=== PATIENT | female | born 1935 | race Caucasian/White ===

== ENCOUNTER 2017-07-25 15:19 | Inpatient (IN) | payer MEDICARE, MEDICAID ==
[~2017-07-25] VITALS: Ht 160 cm; Wt 53.5 kg
[~2017-07-25 15:19] MED LIST: AMLO5TAB7 PO; ASPI-1152 PO; BACL10TA PO; DABI75CA3 PO; DOCU250C14 PO; DRON400T2 PO; DULO60CA45 PO; EZET10TA14 PO; IBAN150T PO; LINA145C PO; LORA1TAB PO; LOVA20TA2 PO; MEMA10TA PO; METO-356 PO; OLME40TA12 PO; ZOLP5TAB2 PO; [UNRECOGNIZED DRUG - CODE] SL
--- NOTE | 2017-07-25 15:25 | NUR ---
[id number] FROM HOME, PER EMS PT SENT FOR BEHAVIORAL ISSUES PER FAMILY MEMBER. PT IS AAOX3. RESP EVEN AND UNLABORED. NO S/S OF ACUTE DISTRESS NOTED. VSS. SKIN WNL. PT SAFETY AND COMFORT MEASURES IN PLACE. PT PLACED ON MONITOR AND POX. PT'S FAMILY MEMBER BEDSIDE. MD BEDSIDE FOR EVAL.
--- NOTE | 2017-07-25 15:35 | NUR ---
JOSE RUBY BEDSIDE FOR EVAL.
[2017-07-25 15:39] LABS: BASOPHILS # (AUTO) 0.1 /CMM (0.0-0.2); BASOPHILS % (AUTO) 0.8 % (0.0-2.0); HEMATOCRIT 34 % (33-45); HEMOGLOBIN 11.7 g/dL (11.5-14.8); LYMPHOCYTES # (AUTO) 1.8 /CMM (0.8-4.8); LYMPHOCYTES % (AUTO) 22.4 % (20.0-44.0); MEAN CORPUSCULAR HGB CONC 34 g/dl (31.0-36.0); MEAN CORPUSCULAR VOLUME 89 fL (82-100); MONOCYTES # (AUTO) 0.4 /CMM (0.1-1.30); MONOCYTES % (AUTO) 5.6 % (2.0-12.0); NEUTROPHILS # (AUTO) 5.5 /CMM (1.8-8.9); NEUTROPHILS % (AUTO) 70.2 % (43.0-81.0); PLATELET COUNT (AUTO) 346 /CMM (150-450); RDW COEFFICIENT OF VARIATION 13.5 (11.5-15.0); RED BLOOD CELL COUNT(AUTO) 3.87 MIL/uL (4.0-5.2); WHITE BLOOD COUNT (AUTO) 7.9 K/uL (4.3-11.0)
--- NOTE | 2017-07-25 15:46 | NUR ---
PT TO RESTROOM TO GIVE URINE SAMPLE.
--- NOTE | 2017-07-25 15:50 | NUR ---
URINE SAMPLE COLLECTED AND SENT TO LAB. PT BACK TO ER BED 3.
--- NOTE | 2017-07-25 15:50 | NUR ---
JOSE RUBY BEDSIDE WITH FAMILY AND PT FOR EVAL.
[2017-07-25 15:56] LABS: CALCIUM, SERUM 9.2 mg/dL (8.5-10.1); CARBON DIOXIDE 28 mmol/L (21-32); CHLORIDE 107 mmol/L (98-107); CREATININE 0.9 mg/dL (0.6-1.3); GLUCOSE 118 mg/dL (74-106); SODIUM SERUM 143 mmol/L (136-145); UREA NITROGEN, BLOOD 32 mg/dL (7-18)
[2017-07-25 16:02] LABS: ALANINE AMINOTRANSFERASE 31 U/L (12-78); ALBUMIN 3.5 g/dL (3.4-5.0); ALCOHOL, BLOOD < 3 mg/dL (0-0); ALKALINE PHOSPHATASE 232 U/L (46-116); ASPARTATE AMINOTRANSFERASE 26 U/L (15-37); BILIRUBIN,DIRECT 0.1 mg/dL (0.0-0.2); BILIRUBIN,TOTAL 0.3 mg/dL (0.2-1.0); TOTAL PROTEIN, SERUM 7.5 g/dL (6.4-8.2)
[2017-07-25 16:15] LABS: ACETAMINOPHEN 0 ug/ml (10-30); SALICYLATE 1.2 mg/dL (2.8-20.0)
[2017-07-25 16:37] LABS: APPEARANCE,URINE Clear (CLEAR); BILIRUBIN,URINE Negative (NEGATIVE); BLOOD, URINE Negative Ery/uL (NEGATIVE); COLOR,URINE Yellow (YELLOW); KETONES,URINE Negative (NEGATIVE); LEUKOCYTE ESTERASE ,URINE Trace (NEGATIVE); NITRITE, URINE Negative (NEGATIVE); PH,URINE 5.5 (5.0-8.0); PROTEIN,URINE >=300 mg/dl (NEGATIVE); UGLUCOSE Negative (NEGATIVE); UROBILINOGEN,URINE 0.2 EU/dL (0.2)
--- NOTE | 2017-07-25 16:45 | NUR ---
CALLED NURSE SUP FOR GPS BED
--- NOTE | 2017-07-25 16:58 | NUR ---
REPORT GIVEN TO EDUARDO GLEASON FOR EMMA
[2017-07-25 17:02] LABS: BACTERIA,URINE Few /HPF (None Seen); RBC,URINE 0-2 /HPF (0-2); SQUAMOUS EPITHELIAL CELL,UR Moderate /HPF (None Seen)
[2017-07-25] MEDS ORDERED: MEMA21CA PO (17:34)
[2017-07-25 19:00] VITALS: BP 145/95
[2017-07-25] MEDS ORDERED: ZOLPIDEM TARTRATE 5 MG TABLET PO PRN (19:00)
--- NOTE | 2017-07-25 19:10 | NUR ---
GPS RN NOTE: ADMITTED AN 82-Y/O, FEMALE, FROM ER, INITIALLY PATIENT CAME FROM HOME. PATIENT ADMITTED ON 5150 HOLD FOR GD, PER HOLD PATIENT WAS WANDERING, AGITATED, DELUSIONAL, THINKING HER SON IN LAW WANTS TO GET RID OF HER, UNABLE TO CARE FOR HERSELF. UPON FACE TO FACE ASSESSMENT, PATIENT APPEARS TO BE ALERT, ORIENTED X3, DEPRESSED, ANXIOUS SHOWS NO S/SX OF DISTRESS NOTED. BELONGINGS INVENTORIED AND CHECKED FOR CONTRABAND. REVIEWED PATIENT'S RIGHTS AND SHE VERBALIZED UNDERSTANDING. PATIENT IS UNDER THE PSYCHIATRIC CARE OF DR. HERNÁNDEZ, AND UNDER THE MEDICAL CARE OF CM MIDDLETON. SKIN AND BODY ASSESSMENT DONE. MRSA SCREENING DONE. BED LOCKED AND PLACED IN LOWEST POSITION. FALL AND SAFETY PRECAUTION OBSERVED. WILL CONTINUE TO MONITOR [id number] FOR SAFETY AND BEHAVIOR.
[2017-07-25 20:00] VITALS: BP 152/97
[2017-07-25] MEDS: MEMANTINE HCL 5 MG TABLET PO SCH (21:26)
[2017-07-25] MEDS: SIMVASTATIN 10 MG TABLET PO SCH (21:26)
[2017-07-25] MEDS: ZOLPIDEM TARTRATE 5 MG TABLET PO PRN (22:37)
--- NOTE | 2017-07-26 06:51 | NUR ---
GPS RN NOTE: LEFT VOICE MESSAGE TO JIA GRAND DAUGHTER REGARDING PATIENT'S ADMISSION. AWAITING FOR CALL BACK. CALLED JESUS GONZALEZ DAUGHTER ([phone]) UNABLE TO REACH PHONE NUMBER DISCONNECTED. WILL ENDORSE TO THE MORNING SHIFT.
[2017-07-26 08:00] VITALS: BP 185/72
[2017-07-26] MEDS: BACLOFEN (10 MG) 10 MG TABLET PO SCH (08:52)
[2017-07-26] MEDS: ASPIRIN EC 81 MG TABLET.DR PO SCH (08:52)
[2017-07-26] MEDS: EZETIMIBE 10 MG TABLET PO SCH (08:52)
[2017-07-26] MEDS: MEMANTINE HCL 5 MG TABLET PO SCH ×2 (08:53→21:14)
[2017-07-26] MEDS: VALSARTAN 80 MG TABLET PO SCH (08:53)
[2017-07-26] MEDS: SULFAMETH/TRIMETH 800/160 MG 1 UDTAB TABLET PO SCH ×2 (08:53→21:13)
[2017-07-26] MEDS: METOPROLOL SUCCINATE 25 MG TAB.SR.24H PO SCH (08:53)
[2017-07-26] MEDS: AMLODIPINE BESYLATE 5 MG TABLET PO SCH (09:00)
[2017-07-26 16:00] VITALS: BP 123/67
[2017-07-26 20:17] VITALS: BP 150/73
[2017-07-26] MEDS: SIMVASTATIN 10 MG TABLET PO SCH (21:14)
[2017-07-26] MEDS ORDERED: risperiDONE 1 MG TABLET PO SCH (22:00)
[2017-07-27 08:00] VITALS: BP 120/57
[2017-07-27] MEDS: AMLODIPINE BESYLATE 5 MG TABLET PO SCH (09:00)
[2017-07-27] MEDS: VALSARTAN 80 MG TABLET PO SCH (09:00)
[2017-07-27] MEDS: METOPROLOL SUCCINATE 25 MG TAB.SR.24H PO SCH (09:00)
[2017-07-27] MEDS: EZETIMIBE 10 MG TABLET PO SCH (09:19)
[2017-07-27] MEDS: BACLOFEN (10 MG) 10 MG TABLET PO SCH (09:19)
[2017-07-27] MEDS: ASPIRIN EC 81 MG TABLET.DR PO SCH (09:19)
[2017-07-27] MEDS: MEMANTINE HCL 5 MG TABLET PO SCH ×2 (09:20→21:10)
[2017-07-27] MEDS: SULFAMETH/TRIMETH 800/160 MG 1 UDTAB TABLET PO SCH ×2 (09:20→21:10)
[2017-07-27 10:04] VITALS: BP 102/61
[2017-07-27] MEDS: LEVOTHYROXINE SODIUM 50 MCG TABLET PO SCH ×2 (10:09→10:35)
[2017-07-27] MEDS: LORAZEPAM 0.5 MG TABLET PO PRN (13:01)
--- NOTE | 2017-07-27 13:03 | NUR ---
GPS/RN-NOTES NOTED PATIENT PACING IN THE HALLWAY LOOKING FOR A ELEVATOR. REDIRECTED AND OFFERED ATIVAN AND AGREED. ATIVAN 0.5MG P.O GIVEN PRN ORDER. WILL CONT. MONITORING FOR SAFETY AND BEHAVIOR.
--- NOTE | 2017-07-27 14:45 | NUR ---
Initial Discharge Note: Per patient, she lives at home with her daughter [id number] R Caal . [address] [place] [id number]. . food prep worker spoke to patient's son in law Milton who was unable to confirm if patient can go back home. food prep worker left her direct contact information and asked Milton to please give patient's daughter Shaylee the message. food prep worker will help form a safe and proper discharge.
--- NOTE | 2017-07-27 15:54 | NUR ---
SW spoke to patient's daughter Shaylee / . who stated that she would like patient to return home to live with her. Per daughter, another option would be to have a caregiver during the daytime and have patient go back to her own apartment. SW will follow-up.
[2017-07-27 16:07] VITALS: BP 100/55
[2017-07-27 20:00] VITALS: BP 101/55
--- NOTE | 2017-07-27 20:56 | NUR ---
RN GPS NOTES LEFT MESSAGE FOR DR. MCCLAIN IN HIS OFFICE FOR CONSULT
[2017-07-27] MEDS: risperiDONE 1 MG TABLET PO SCH (21:10)
[2017-07-27] MEDS: SIMVASTATIN 10 MG TABLET PO SCH (21:10)
[2017-07-28 08:20] VITALS: BP 152/82
[2017-07-28] MEDS: LEVOTHYROXINE SODIUM 50 MCG TABLET PO SCH (08:29)
[2017-07-28] MEDS: EZETIMIBE 10 MG TABLET PO SCH (08:37)
[2017-07-28] MEDS: BACLOFEN (10 MG) 10 MG TABLET PO SCH (08:37)
[2017-07-28] MEDS: ASPIRIN EC 81 MG TABLET.DR PO SCH (08:37)
[2017-07-28] MEDS: SULFAMETH/TRIMETH 800/160 MG 1 UDTAB TABLET PO SCH ×2 (08:37→21:51)
[2017-07-28] MEDS: MEMANTINE HCL 5 MG TABLET PO SCH ×2 (08:38→21:51)
[2017-07-28] MEDS: VALSARTAN 80 MG TABLET PO SCH (08:38)
[2017-07-28] MEDS: METOPROLOL SUCCINATE 25 MG TAB.SR.24H PO SCH (08:38)
[2017-07-28] MEDS: AMLODIPINE BESYLATE 5 MG TABLET PO SCH (08:41)
--- NOTE | 2017-07-28 09:30 | NUR ---
GPS/RN-NOTES SEEN BY DR. MCCLAIN TODAY.
[2017-07-28 11:05] LABS: THYROID STIMULATING HORMONE 3.985 uIU/mL (0.358-3.74)
[2017-07-28 16:47] VITALS: BP 140/79
[2017-07-28 16:50] VITALS: BP 140/80
[2017-07-28 20:00] VITALS: BP 138/76
[2017-07-28] MEDS: ZOLPIDEM TARTRATE 5 MG TABLET PO PRN (21:51)
[2017-07-28] MEDS: risperiDONE 1 MG TABLET PO SCH (21:51)
[2017-07-28] MEDS: SIMVASTATIN 10 MG TABLET PO SCH (21:51)
[2017-07-29 08:00] VITALS: BP 132/62
[2017-07-29] MEDS: VALSARTAN 80 MG TABLET PO SCH (09:32)
[2017-07-29] MEDS: LEVOTHYROXINE SODIUM 50 MCG TABLET PO SCH (09:32)
[2017-07-29] MEDS: METOPROLOL SUCCINATE 25 MG TAB.SR.24H PO SCH (09:33)
[2017-07-29] MEDS: MEMANTINE HCL 5 MG TABLET PO SCH ×2 (09:34→22:16)
[2017-07-29] MEDS: EZETIMIBE 10 MG TABLET PO SCH (09:34)
[2017-07-29] MEDS: SULFAMETH/TRIMETH 800/160 MG 1 UDTAB TABLET PO SCH ×2 (09:34→22:15)
[2017-07-29] MEDS: ASPIRIN EC 81 MG TABLET.DR PO SCH (09:35)
[2017-07-29] MEDS: BACLOFEN (10 MG) 10 MG TABLET PO SCH (09:35)
[2017-07-29] MEDS: AMLODIPINE BESYLATE 5 MG TABLET PO SCH (09:35)
[2017-07-29 16:00] VITALS: BP 183/70
[2017-07-29 20:00] VITALS: BP 125/69
[2017-07-29] MEDS: risperiDONE 1 MG TABLET PO SCH (22:15)
[2017-07-29] MEDS: SIMVASTATIN 10 MG TABLET PO SCH (22:15)
[2017-07-29] MEDS: ZOLPIDEM TARTRATE 5 MG TABLET PO PRN (22:16)
[2017-07-30 08:00] VITALS: BP 123/67
[2017-07-30] MEDS: EZETIMIBE 10 MG TABLET PO SCH (08:55)
[2017-07-30] MEDS: SULFAMETH/TRIMETH 800/160 MG 1 UDTAB TABLET PO SCH ×2 (08:55→21:40)
[2017-07-30] MEDS: BACLOFEN (10 MG) 10 MG TABLET PO SCH (08:55)
[2017-07-30] MEDS: LEVOTHYROXINE SODIUM 50 MCG TABLET PO SCH (08:55)
[2017-07-30] MEDS: MEMANTINE HCL 5 MG TABLET PO SCH ×2 (08:55→21:40)
[2017-07-30] MEDS: ASPIRIN EC 81 MG TABLET.DR PO SCH (08:56)
[2017-07-30] MEDS: VALSARTAN 80 MG TABLET PO SCH (08:56)
[2017-07-30] MEDS: METOPROLOL SUCCINATE 25 MG TAB.SR.24H PO SCH (08:56)
[2017-07-30] MEDS: AMLODIPINE BESYLATE 5 MG TABLET PO SCH (08:59)
[2017-07-30 16:00] VITALS: BP 156/67
[2017-07-30 20:00] VITALS: BP 102/54
[2017-07-30] MEDS: ZOLPIDEM TARTRATE 5 MG TABLET PO PRN (21:40)
[2017-07-30] MEDS: risperiDONE 1 MG TABLET PO SCH (21:40)
[2017-07-30] MEDS: SIMVASTATIN 10 MG TABLET PO SCH (21:40)
[2017-07-31] MEDS: METOPROLOL SUCCINATE 25 MG TAB.SR.24H PO SCH (08:11)
[2017-07-31] MEDS: VALSARTAN 80 MG TABLET PO SCH (08:11)
[2017-07-31] MEDS: AMLODIPINE BESYLATE 5 MG TABLET PO SCH (08:11)
[2017-07-31 08:16] VITALS: BP 189/71
[2017-07-31] MEDS: ASPIRIN EC 81 MG TABLET.DR PO SCH (08:49)
[2017-07-31] MEDS: BACLOFEN (10 MG) 10 MG TABLET PO SCH (08:49)
[2017-07-31] MEDS: MEMANTINE HCL 5 MG TABLET PO SCH ×2 (08:49→21:23)
[2017-07-31] MEDS: LEVOTHYROXINE SODIUM 50 MCG TABLET PO SCH (08:50)
[2017-07-31] MEDS: EZETIMIBE 10 MG TABLET PO SCH (08:50)
[2017-07-31] MEDS: SULFAMETH/TRIMETH 800/160 MG 1 UDTAB TABLET PO SCH ×2 (08:53→21:19)
[2017-07-31 16:00] VITALS: BP 116/60
[2017-07-31] MEDS: LORAZEPAM 0.5 MG TABLET PO PRN (19:37)
[2017-07-31 19:45] VITALS: BP 119/69
[2017-07-31] MEDS: risperiDONE 1 MG TABLET PO SCH (21:20)
[2017-07-31] MEDS: SIMVASTATIN 10 MG TABLET PO SCH (21:22)
[2017-08-01 08:00] VITALS: BP 160/75
[2017-08-01] MEDS: ASPIRIN EC 81 MG TABLET.DR PO SCH (08:32)
[2017-08-01] MEDS: LEVOTHYROXINE SODIUM 50 MCG TABLET PO SCH (08:32)
[2017-08-01] MEDS: BACLOFEN (10 MG) 10 MG TABLET PO SCH (08:32)
[2017-08-01] MEDS: SULFAMETH/TRIMETH 800/160 MG 1 UDTAB TABLET PO SCH ×2 (08:32→21:32)
[2017-08-01] MEDS: MEMANTINE HCL 5 MG TABLET PO SCH ×2 (08:33→21:32)
[2017-08-01] MEDS: AMLODIPINE BESYLATE 5 MG TABLET PO SCH (08:33)
[2017-08-01] MEDS: METOPROLOL SUCCINATE 25 MG TAB.SR.24H PO SCH (08:34)
[2017-08-01] MEDS: EZETIMIBE 10 MG TABLET PO SCH (08:34)
[2017-08-01] MEDS: VALSARTAN 80 MG TABLET PO SCH (08:34)
[2017-08-01 15:56] VITALS: BP 140/52
[2017-08-01 19:48] VITALS: BP 102/59
[2017-08-01] MEDS: risperiDONE 1 MG TABLET PO SCH (21:32)
[2017-08-01] MEDS: SIMVASTATIN 10 MG TABLET PO SCH (21:32)
[2017-08-01] MEDS: ZOLPIDEM TARTRATE 5 MG TABLET PO PRN (21:49)
[2017-08-02] MEDS: LORAZEPAM 0.5 MG TABLET PO PRN (01:19)
--- NOTE | 2017-08-02 01:19 | NUR ---
GPS RN NOTES: PATIENT IS ANXIOUS AND RESTLESS, VSS, ADMINISTERED ATIVAN 0.5MG PO ORDERED. WILL CONTINUE TO MONITOR [id number] FOR SAFETY AND BEHAVIOR.
[2017-08-02 08:00] VITALS: BP 131/60
[2017-08-02] MEDS: LEVOTHYROXINE SODIUM 50 MCG TABLET PO SCH (08:22)
[2017-08-02] MEDS: VALSARTAN 80 MG TABLET PO SCH (08:22)
[2017-08-02] MEDS: BACLOFEN (10 MG) 10 MG TABLET PO SCH (08:22)
[2017-08-02] MEDS: METOPROLOL SUCCINATE 25 MG TAB.SR.24H PO SCH (08:22)
[2017-08-02] MEDS: SULFAMETH/TRIMETH 800/160 MG 1 UDTAB TABLET PO SCH (08:22)
[2017-08-02] MEDS: MEMANTINE HCL 5 MG TABLET PO SCH (08:23)
[2017-08-02] MEDS: EZETIMIBE 10 MG TABLET PO SCH (08:24)
[2017-08-02] MEDS: ASPIRIN EC 81 MG TABLET.DR PO SCH (08:24)
[2017-08-02] MEDS: AMLODIPINE BESYLATE 5 MG TABLET PO SCH (08:24)
[2017-08-02 16:00] VITALS: BP 100/55
--- NOTE | 2017-08-02 18:00 | NUR ---
BVV-OD-DRPNP: PT IS 82 YEARS OLD FEMALE DISCHARGE TO HOME AT [address] [facility] [facility]. [id number], VIA PRIVATE CAR IN STABLE CONDITION. COMPLAINT WITH MEDICATIONS, COOPERATIVE WITH TREATMENT PLANS. PT DENIES SI/HI AND INSTRUCTED TO GO TO THE CLOSEST ER IF DEVELOPING SI/HI. BEHAVIOR IMPROVED, PSYCHIATRIC TX PLANS MET, MEDIAL TX PLANS DEFERRED FOR CONTINUAL MONITORING. EDUCATED PT ABOUT AFTER CARE PLAN AND COPY PROVIDED. RETURN PERSONAL BELONGINGS TO PT. MEDICATIONS RECONCILED WITH DR. HERNÁNDEZ AND DR. BERRY. REPORT GIVEN TO JESUS PT'S DAUGHTER. PT REFUSED TO SIGN DISCHARGE PAPERWORK. SKIN ASSESSMENT DONE. PT LEFT VIA PRIVATE CAR ACCOMPANIED BY DAUGHTER JESUS.
== END 2017-08-02 18:00 | disposition home or self-care (01) | DRG 885 ==
LOC: ER 15:20 → GPS 17:03
PROVIDERS: ADMIT Psychiatry & Neurology Psychiatry; ATTEND Psychiatry & Neurology Psychiatry
DX: F29 Unspecified psychosis not due to a substance or known physiological condition (principal); G93.41 Metabolic encephalopathy; F02.81 Dementia in other diseases classified elsewhere, unspecified severity, with behavioral disturbance; I48.91 Unspecified atrial fibrillation; E11.9 Type 2 diabetes mellitus without complications; G30.9 Alzheimer's disease, unspecified; F22 Delusional disorders; N39.0 Urinary tract infection, site not specified; I10 Essential (primary) hypertension; E03.9 Hypothyroidism, unspecified; E78.5 Hyperlipidemia, unspecified; F32.9 Major depressive disorder, single episode, unspecified; F41.9 Anxiety disorder, unspecified; I25.10 Atherosclerotic heart disease of native coronary artery without angina pectoris; K21.9 Gastro-esophageal reflux disease without esophagitis; Z91.19 Patient's noncompliance with other medical treatment and regimen; Z79.82 Long term (current) use of aspirin; K59.00 Constipation, unspecified; Z79.899 Other long term (current) drug therapy; Z79.01 Long term (current) use of anticoagulants; M19.90 Unspecified osteoarthritis, unspecified site
CPT/HCPCS: 36415; 70450-TC; 80048-TC; 80061-TC; 80076-TC; 80305; 81000-TC; 82140-TC; 82306; 82728-TC; 82962-TC; 83540-TC; 84439-TC; 84443-TC; 85025-TC; 87081-TC; 87086-TC; 87186-TC; A4606; G0480; Z7610

== ENCOUNTER 2017-10-31 09:31 | Inpatient (IN) | payer MEDICARE, MEDICAID ==
[2017-10-31] VITALS: BP 146/52
[~2017-10-31] VITALS: Ht 157.5 cm; Wt 46.7 kg
[~2017-10-31 09:31] MED LIST changes: +AMLO5TAB2 PO; -AMLO5TAB7 PO; -DABI75CA3 PO; -DOCU250C14 PO; -DRON400T2 PO; -LORA1TAB PO; -MEMA10TA PO; +MEMA21CA PO; -[UNRECOGNIZED DRUG - CODE] SL
[2017-10-31] MEDS ORDERED: IBUPROFEN 600 MG TABLET PO ONE (10:00)
[2017-10-31 10:15] LABS: CALCIUM, SERUM 10.3 mg/dL (8.5-10.1); CARBON DIOXIDE 29 mmol/L (21-32); CHLORIDE 103 mmol/L (98-107); GLUCOSE 146 mg/dL (74-106); POTASSIUM 4.3 mmol/L (3.5-5.1); SODIUM SERUM 137 mmol/L (136-145); UREA NITROGEN, BLOOD 26 mg/dL (7-18)
[2017-10-31 10:21] LABS: ALANINE AMINOTRANSFERASE 46 U/L (12-78); ALBUMIN 4.3 g/dL (3.4-5.0); ALKALINE PHOSPHATASE 85 U/L (46-116); ASPARTATE AMINOTRANSFERASE 30 U/L (15-37); BILIRUBIN,DIRECT 0.1 mg/dL (0.0-0.2); BILIRUBIN,TOTAL 0.3 mg/dL (0.2-1.0); TOTAL PROTEIN, SERUM 8.7 g/dL (6.4-8.2)
[2017-10-31 10:22] LABS: HEMATOCRIT 41 % (33-45); HEMOGLOBIN 13.7 g/dL (11.5-14.8); MEAN CORPUSCULAR HEMOGLOBIN 30 PG (26.0-33.0); MEAN CORPUSCULAR HGB CONC 33 g/dl (31.0-36.0); MEAN CORPUSCULAR VOLUME 91 fL (82-100); RED BLOOD CELL COUNT(AUTO) 4.55 MIL/uL (4.0-5.2); WHITE BLOOD COUNT (AUTO) 10.7 K/uL (4.3-11.0)
[2017-10-31 10:23] LABS: BASOPHILS % (AUTO) 1.2 % (0.0-2.0); EOSINOPHILS % (AUTO) 1.2 % (0.0-6.0); LYMPHOCYTES % (AUTO) 43.4 % (20.0-44.0); MONOCYTES % (AUTO) 8.3 % (2.0-12.0); NEUTROPHILS % (AUTO) 45.9 % (43.0-81.0); PLATELET COUNT (AUTO) 315 /CMM (150-450); RDW COEFFICIENT OF VARIATION 14.8 (11.5-15.0); TROPONIN I 0.064 ng/mL (0.00-0.056)
[2017-10-31] MEDS ORDERED: ASPIRIN 325 MG TABLET PO ONE (11:00)
[2017-10-31 11:02] LABS: APPEARANCE,URINE CLEAR (CLEAR); BILIRUBIN,URINE NEGATIVE (NEGATIVE); BLOOD, URINE 1+ Ery/uL (NEGATIVE); COLOR,URINE YELLOW (YELLOW); KETONES,URINE NEGATIVE (NEGATIVE); LEUKOCYTE ESTERASE ,URINE NEGATIVE (NEGATIVE); NITRITE, URINE NEGATIVE (NEGATIVE); PROTEIN,URINE 3+ mg/dl (NEGATIVE); UGLUCOSE NEGATIVE (NEGATIVE); UROBILINOGEN,URINE 0.2 EU/dL (0.2)
[2017-10-31] MEDS ORDERED: ASPIRIN 325 MG TABLET ONE (11:32)
[2017-10-31 11:45] LABS: BACTERIA,URINE None seen /HPF (None Seen); SQUAMOUS EPITHELIAL CELL,UR None Seen /HPF (None Seen); WBC,URINE NONE SEEN /HPF (0-3)
[2017-10-31] MEDS ORDERED: MAG HYDROX/AL HYDROX/SIMETH 30 ML UDC PO PRN (12:00)
[2017-10-31] MEDS ORDERED: ONDANSETRON HCL/PF 4 MG/2 ML VIAL IVP PRN (12:00)
[2017-10-31] MEDS ORDERED: MORPHINE SULFATE INJ 2 MG/ML DISP.SYRIN IV PRN (12:00)
[2017-10-31] MEDS ORDERED: ACETAMINOPHEN 325 MG TABLET PO PRN (12:00)
[2017-10-31] MEDS ORDERED: ZOLPIDEM TARTRATE 5 MG TABLET PO PRN ×2 (12:00)
[2017-10-31] MEDS ORDERED: MAGNESIUM HYDROXIDE 30 ML UDC PO PRN (12:00)
[2017-10-31 13:43] LABS: ABG BASE EXCESS 1.1 mmol/L; ABG OXYGEN SATURATION 98.4 % (92.0-98.5); ABG PH 7.438 (7.350-7.450); ABG PO2 144.3 mmHg (75.0-100.0); AaDO2 10.5 mmHg; COHb 0.4 % (0.5-1.5); MetHb 0.2 % (0.0-1.5); O2Hb 97.8 % (94.0-97.0); SITE, ABG Right Radial; VENT MODE, BG Nasal Cannula
[2017-10-31] MEDS: IV NS 0.9% 1,000 ML IV PRN (14:17)
[2017-10-31 14:53] VITALS: BP 187/87
[2017-10-31] MEDS: hydrALAZINE HCL IV 20 MG VIAL IV PRN ×2 (14:53→23:30)
[2017-10-31 15:30] VITALS: BP 134/75
[2017-10-31] MEDS ORDERED: NYSTATIN TOP POWDER 15 GM BOTTLE TP SCH (15:30)
[2017-10-31 16:23] VITALS: BP 134/75
[2017-10-31] MEDS: MEMANTINE HCL 5 MG TABLET PO SCH (18:10)
[2017-10-31 20:00] VITALS: BP 165/89
[2017-11-01] VITALS: BP 146/52
[2017-11-01] MEDS: ENOXAPARIN SODIUM 60 MG/0.6 ML DISP.SYRIN SQ SCH ×3 (00:16→21:44)
[2017-11-01 04:00] VITALS: BP 145/74
[2017-11-01] MEDS: IV NS 0.9% 1,000 ML IV PRN (04:17)
[2017-11-01 06:41] LABS: CHOLESTEROL 268 mg/dL (<200); HDL CHOLESTEROL 114 mg/dL (40-60); LDL 134 mg/dL (0-99); TRIGLYCERIDES 56 mg/dL (30-150)
[2017-11-01 06:55] LABS: CALCIUM, SERUM 9.5 mg/dL (8.5-10.1); CARBON DIOXIDE 25 mmol/L (21-32); CHLORIDE 105 mmol/L (98-107); GLUCOSE 115 mg/dL (74-106); PHOSPHORUS 2.7 mg/dL (2.5-4.9); POTASSIUM 3.9 mmol/L (3.5-5.1); SODIUM SERUM 142 mmol/L (136-145); UREA NITROGEN, BLOOD 23 mg/dL (7-18)
[2017-11-01] MEDS ORDERED: PANTOPRAZOLE 40 MG TABLET.DR PO SCH (07:30)
[2017-11-01 07:42] LABS: EOSINOPHILS % (AUTO) 0.6 % (0.0-6.0); HEMATOCRIT 37 % (33-45); HEMOGLOBIN 13.5 g/dL (11.5-14.8); LYMPHOCYTES # (AUTO) 1.7 /CMM (0.8-4.8); LYMPHOCYTES % (AUTO) 13.3 % (20.0-44.0); MEAN CORPUSCULAR HEMOGLOBIN 33 PG (26.0-33.0); MEAN CORPUSCULAR HGB CONC 37 g/dl (31.0-36.0); MEAN CORPUSCULAR VOLUME 89 fL (82-100); MONOCYTES # (AUTO) 0.9 /CMM (0.1-1.30); NEUTROPHILS % (AUTO) 79.1 % (43.0-81.0); PLATELET COUNT (AUTO) 270 /CMM (150-450); RDW COEFFICIENT OF VARIATION 14.2 (11.5-15.0); RED BLOOD CELL COUNT(AUTO) 4.14 MIL/uL (4.0-5.2); WHITE BLOOD COUNT (AUTO) 12.7 K/uL (4.3-11.0)
[2017-11-01 08:00] VITALS: BP 147/76
[2017-11-01] MEDS ORDERED: PHARMACY TO CHANGE PO MEDS TO GT/NG XX PRN (08:00)
[2017-11-01] MEDS ORDERED: METOPROLOL SUCCINATE 25 MG TAB.SR.24H PO SCH (09:00)
[2017-11-01] MEDS: METOPROLOL TARTRATE 25 MG TABLET PO SCH ×2 (09:53→21:44)
[2017-11-01] MEDS: DULOXETINE HCL 20 MG CAPSULE.DR PO SCH (09:56)
[2017-11-01] MEDS: AMLODIPINE BESYLATE 5 MG TABLET PO SCH (09:57)
[2017-11-01] MEDS: BACLOFEN (10 MG) 10 MG TABLET PO SCH (09:58)
[2017-11-01] MEDS: EZETIMIBE 10 MG TABLET PO SCH (09:58)
[2017-11-01] MEDS: MEMANTINE HCL 5 MG TABLET PO SCH ×2 (09:58→17:00)
[2017-11-01] MEDS: ASPIRIN 81 MG TAB.CHEW PO SCH (09:59)
[2017-11-01] MEDS: ATORVASTATIN 10 MG TABLET PO SCH (09:59)
[2017-11-01] MEDS: PANTOPRAZOLE 40 MG/PACK PACK PO SCH (10:00)
[2017-11-01 10:02] LABS: THYROID STIMULATING HORMONE 5.323 uIU/mL (0.358-3.74)
[2017-11-01 10:03] LABS: TROPONIN I 6.013 ng/mL (0.00-0.056)
[2017-11-01] MEDS: VALSARTAN 80 MG TABLET PO SCH (11:11)
[2017-11-01 11:40] LABS: LYMPHOCYTES % (MANUAL) 19 % (16-48); NEUTROPHILS % (MANUAL) 75 (42-76)
[2017-11-01 11:41] LABS: MONOCYTES % (MANUAL) 6 % (0-11.0)
[2017-11-01 12:00] VITALS: BP 162/78
[2017-11-01] MEDS: hydrALAZINE HCL IV 20 MG VIAL IV PRN (13:01)
[2017-11-01] MEDS: HYDROCODONE/APAP 5/325MG 1 EACH TABLET PO PRN ×2 (14:20→19:32)
[2017-11-01] MEDS ORDERED: LORAZEPAM INJ 2 MG/ML VIAL IV PRN (15:30)
[2017-11-01 16:00] VITALS: BP 136/58
[2017-11-01 20:00] VITALS: BP 156/72
[2017-11-02] VITALS: BP 141/70
[2017-11-02 04:06] VITALS: BP 135/66
[2017-11-02 06:15] LABS: BASOPHILS % (AUTO) 0.5 % (0.0-2.0); EOSINOPHILS % (AUTO) 0.6 % (0.0-6.0); HEMATOCRIT 38 % (33-45); LYMPHOCYTES # (AUTO) 1.8 /CMM (0.8-4.8); LYMPHOCYTES % (AUTO) 18.8 % (20.0-44.0); MEAN CORPUSCULAR HEMOGLOBIN 30 PG (26.0-33.0); MEAN CORPUSCULAR HGB CONC 34 g/dl (31.0-36.0); MEAN CORPUSCULAR VOLUME 89 fL (82-100); MONOCYTES # (AUTO) 0.9 /CMM (0.1-1.30); MONOCYTES % (AUTO) 9.2 % (2.0-12.0); NEUTROPHILS # (AUTO) 6.7 /CMM (1.8-8.9); NEUTROPHILS % (AUTO) 70.9 % (43.0-81.0); PLATELET COUNT (AUTO) 264 /CMM (150-450); RDW COEFFICIENT OF VARIATION 14.3 (11.5-15.0); RED BLOOD CELL COUNT(AUTO) 4.28 MIL/uL (4.0-5.2); WHITE BLOOD COUNT (AUTO) 9.5 K/uL (4.3-11.0)
[2017-11-02 06:57] LABS: CALCIUM, SERUM 8.8 mg/dL (8.5-10.1); CARBON DIOXIDE 28 mmol/L (21-32); CHLORIDE 107 mmol/L (98-107); GLUCOSE 105 mg/dL (74-106); SODIUM SERUM 144 mmol/L (136-145); UREA NITROGEN, BLOOD 27 mg/dL (7-18)
[2017-11-02 08:00] VITALS: BP 166/65
[2017-11-02] MEDS: EZETIMIBE 10 MG TABLET PO SCH (08:15)
[2017-11-02] MEDS: PANTOPRAZOLE 40 MG/PACK PACK PO SCH (08:15)
[2017-11-02] MEDS: METOPROLOL TARTRATE 25 MG TABLET PO SCH ×2 (08:17→20:54)
[2017-11-02] MEDS: BACLOFEN (10 MG) 10 MG TABLET PO SCH (08:17)
[2017-11-02] MEDS: AMLODIPINE BESYLATE 5 MG TABLET PO SCH (08:17)
[2017-11-02] MEDS: ATORVASTATIN 10 MG TABLET PO SCH (08:18)
[2017-11-02] MEDS: MEMANTINE HCL 5 MG TABLET PO SCH ×2 (08:18→16:57)
[2017-11-02] MEDS: VALSARTAN 80 MG TABLET PO SCH (08:18)
[2017-11-02] MEDS: ASPIRIN 81 MG TAB.CHEW PO SCH (08:18)
[2017-11-02] MEDS: DULOXETINE HCL 20 MG CAPSULE.DR PO SCH (08:19)
[2017-11-02 08:44] LABS: IRON, SERUM 51 ug/dl (50-175); TOTAL IRON BINDING CAPACITY 282 ug/dl (250-450)
[2017-11-02 09:03] LABS: FERRITIN 117 ng/mL (8-388)
[2017-11-02] MEDS: DABIGATRAN ETEXILATE MESYLATE 75 MG CAPSULE PO SCH ×2 (10:24→17:04)
[2017-11-02] MEDS: IV NS 0.9% 1,000 ML IV PRN (13:06)
[2017-11-02 16:00] VITALS: BP 92/54
[2017-11-02 20:00] VITALS: BP_SYST 92; BP_SYST 94; BP_DIAS 48; BP_DIAS 58
[2017-11-03] MEDS: IV NS 0.9% 1,000 ML IV PRN (02:45)
[2017-11-03 06:41] LABS: BASOPHILS % (AUTO) 0.4 % (0.0-2.0); EOSINOPHILS % (AUTO) 1.9 % (0.0-6.0); HEMATOCRIT 36 % (33-45); HEMOGLOBIN 11.6 g/dL (11.5-14.8); LYMPHOCYTES # (AUTO) 2.6 /CMM (0.8-4.8); LYMPHOCYTES % (AUTO) 30.4 % (20.0-44.0); MEAN CORPUSCULAR HEMOGLOBIN 30 PG (26.0-33.0); MEAN CORPUSCULAR HGB CONC 33 g/dl (31.0-36.0); MEAN CORPUSCULAR VOLUME 93 fL (82-100); MONOCYTES # (AUTO) 0.8 /CMM (0.1-1.30); MONOCYTES % (AUTO) 9.2 % (2.0-12.0); NEUTROPHILS % (AUTO) 58.1 % (43.0-81.0); PLATELET COUNT (AUTO) 218 /CMM (150-450); RDW COEFFICIENT OF VARIATION 15.2 (11.5-15.0); RED BLOOD CELL COUNT(AUTO) 3.85 MIL/uL (4.0-5.2); WHITE BLOOD COUNT (AUTO) 8.6 K/uL (4.3-11.0)
[2017-11-03 06:43] LABS: ALANINE AMINOTRANSFERASE 42 U/L (12-78); ALBUMIN 2.7 g/dL (3.4-5.0); ALKALINE PHOSPHATASE 52 U/L (46-116); ASPARTATE AMINOTRANSFERASE 59 U/L (15-37); BILIRUBIN,TOTAL 0.3 mg/dL (0.2-1.0); CALCIUM, SERUM 8.1 mg/dL (8.5-10.1); CARBON DIOXIDE 26 mmol/L (21-32); CHLORIDE 107 mmol/L (98-107); CREATININE 0.9 mg/dL (0.6-1.3); GLUCOSE 93 mg/dL (74-106); MAGNESIUM 1.9 mg/dL (1.8-2.4); PHOSPHORUS 2.9 mg/dL (2.5-4.9); POTASSIUM 3.6 mmol/L (3.5-5.1); SODIUM SERUM 139 mmol/L (136-145); TOTAL PROTEIN, SERUM 6.1 g/dL (6.4-8.2); UREA NITROGEN, BLOOD 31 mg/dL (7-18)
[2017-11-03 08:00] VITALS: BP 121/62
[2017-11-03] MEDS: PANTOPRAZOLE 40 MG/PACK PACK PO SCH (08:04)
[2017-11-03] MEDS: EZETIMIBE 10 MG TABLET PO SCH (08:30)
[2017-11-03] MEDS: MEMANTINE HCL 5 MG TABLET PO SCH (08:30)
[2017-11-03] MEDS: ATORVASTATIN 10 MG TABLET PO SCH (08:30)
[2017-11-03] MEDS: BACLOFEN (10 MG) 10 MG TABLET PO SCH (08:30)
[2017-11-03] MEDS: ASPIRIN 81 MG TAB.CHEW PO SCH (08:31)
[2017-11-03] MEDS: DULOXETINE HCL 20 MG CAPSULE.DR PO SCH (08:31)
[2017-11-03] MEDS: DABIGATRAN ETEXILATE MESYLATE 75 MG CAPSULE PO SCH (08:32)
[2017-11-03] MEDS: VALSARTAN 80 MG TABLET PO SCH (09:00)
[2017-11-03] MEDS: METOPROLOL TARTRATE 25 MG TABLET PO SCH (09:00)
[2017-11-03] MEDS: AMLODIPINE BESYLATE 5 MG TABLET PO SCH (09:00)
[2017-11-03] MEDS ORDERED: IV NS 0.9% 1,000 ML IV PRN (10:44)
[2017-11-03] MEDS ORDERED: ERGOCALCIFEROL (VITAMIN D 2) 50,000 UNIT CAPSULE PO SCH (11:00)
[2017-11-03] MEDS: POTASSIUM CHLORIDE 20 MEQ TAB.PRT.SR PO SCH ×3 (11:43→15:19)
[2017-11-03 16:20] VITALS: BP 114/67
== END 2017-11-03 16:30 | DRG 280 ==
LOC: ER 09:32 → TELE 11:24 → MED 11-02 09:21
PROVIDERS: ADMIT Nurse Practitioner Acute Care; ATTEND Nurse Practitioner Acute Care
DX: I16.0 Hypertensive urgency (principal); G93.40 Encephalopathy, unspecified; I21.A1 Myocardial infarction type 2; I50.23 Acute on chronic systolic (congestive) heart failure; D68.59 Other primary thrombophilia; N17.9 Acute kidney failure, unspecified; I11.0 Hypertensive heart disease with heart failure; E03.9 Hypothyroidism, unspecified; E11.9 Type 2 diabetes mellitus without complications; E78.5 Hyperlipidemia, unspecified; F41.9 Anxiety disorder, unspecified; I25.10 Atherosclerotic heart disease of native coronary artery without angina pectoris; I34.0 Nonrheumatic mitral (valve) insufficiency; I48.91 Unspecified atrial fibrillation; K21.9 Gastro-esophageal reflux disease without esophagitis; M19.90 Unspecified osteoarthritis, unspecified site; G30.9 Alzheimer's disease, unspecified; F02.80 Dementia in other diseases classified elsewhere, unspecified severity, without behavioral disturbance, psychotic disturbance, mood disturbance, and anxiety; D50.9 Iron deficiency anemia, unspecified; R33.9 Retention of urine, unspecified; Z79.01 Long term (current) use of anticoagulants
CPT/HCPCS: 36415; 36600; 70450-TC; 71045-TC; 80048-TC; 80053-TC; 80061-TC; 80076-TC; 81000-TC; 82306; 82728-TC; 82803-TC; 83540-TC; 83735-TC; 84100-TC; 84439-TC; 84443-TC; 84484-TC; 85025-TC; 87081-TC; 87086-TC; 93307-TC; 97116-TC; 97530-TC; A4606; J0360; J1650; J7030; Z7610

== ENCOUNTER 2019-07-30 21:24 | Inpatient (IN) | payer MEDICARE, OTHER ==
[~2019-07-30] VITALS: Ht 157.5 cm; Wt 58.2 kg
[~2019-07-30 21:24] MED LIST changes: -AMLO5TAB2 PO; +AMLO5TAB9 PO; -EZET10TA14 PO; +EZET10TA16 PO; -IBAN150T PO; +IBAN150T16 PO; -METO-356 PO; +METO25TA4 PO
--- NOTE | 2019-07-30 21:35 | NUR ---
BIBRA 889 FOR C/O ABD DISTENTION AND CONSTIPATION. LBM: 07/27. PER DTR PT HAS RECEIVED LAXATIVE AT HOME FOR THE PAST TWO DAYS BUT NOT EFFECTIVE.
--- NOTE | 2019-07-30 22:02 | NUR ---
IV LINE STABLISHE. BLOOD DRAWN AND SENT TO THE LAB
[2019-07-30 22:04] LABS: BASOPHILS % (AUTO) 0.4 % (0.0-2.0); HEMATOCRIT 38 % (33-45); HEMOGLOBIN 12.5 g/dL (11.5-14.8); LYMPHOCYTES # (AUTO) 0.7 /CMM (0.8-4.8); LYMPHOCYTES % (AUTO) 6.5 % (20.0-44.0); MEAN CORPUSCULAR HGB CONC 33 g/dl (31.0-36.0); MEAN CORPUSCULAR VOLUME 91 fL (82-100); MONOCYTES # (AUTO) 0.4 /CMM (0.1-1.30); MONOCYTES % (AUTO) 3.2 % (2.0-12.0); NEUTROPHILS # (AUTO) 10.3 /CMM (1.8-8.9); NEUTROPHILS % (AUTO) 89.9 % (43.0-81.0); PLATELET COUNT (AUTO) 325 /CMM (150-450); RED BLOOD CELL COUNT(AUTO) 4.17 MIL/uL (4.0-5.2); WHITE BLOOD COUNT (AUTO) 11.5 K/uL (4.3-11.0)
[2019-07-30 22:15] LABS: CALCIUM, SERUM 9.4 mg/dL (8.5-10.1); CREATININE 1.2 mg/dL (0.6-1.3); POTASSIUM 4.3 mmol/L (3.5-5.1)
[2019-07-30 22:22] LABS: ALBUMIN 3.8 g/dL (3.4-5.0); BILIRUBIN,DIRECT 0.1 mg/dL (0.0-0.2); BILIRUBIN,TOTAL 0.4 mg/dL (0.2-1.0); TOTAL PROTEIN, SERUM 8.3 g/dL (6.4-8.2)
[2019-07-30] MEDS ORDERED: IOHEXOL-300 100 ML VIAL IV ONE (22:35)
[2019-07-30] MEDS ORDERED: IV NS 0.9% 250 ML IV ONE (22:35)
[2019-07-30 22:56] LABS: APPEARANCE,URINE Clear (CLEAR); BILIRUBIN,URINE SMALL (NEGATIVE); BLOOD, URINE Moderate Ery/uL (NEGATIVE); COLOR,URINE Yellow (YELLOW); KETONES,URINE Negative (NEGATIVE); LEUKOCYTE ESTERASE ,URINE Negative (NEGATIVE); NITRITE, URINE Positive (NEGATIVE); PH,URINE 5.5 (5.0-8.0); PROTEIN,URINE >=300 mg/dl (NEGATIVE); UGLUCOSE Negative (NEGATIVE); UROBILINOGEN,URINE 0.2 EU/dL (0.2)
[2019-07-30 23:07] LABS: RBC,URINE 21-50 /HPF (0-2)
[2019-07-30 23:08] LABS: BACTERIA,URINE 2+ /HPF (None Seen); SQUAMOUS EPITHELIAL CELL,UR Few /HPF (None Seen)
--- NOTE | 2019-07-30 23:24 | NUR ---
dr. qiu at the bed side speaking w/ the pt and her daughter
--- NOTE | 2019-07-30 23:32 | NUR ---
DR. AL ON THE PHONE W/ CORINNA CRAWFORD
--- NOTE | 2019-07-30 23:33 | NUR ---
US TECH AT THE BED SIDE
--- NOTE | 2019-07-30 23:34 | NUR ---
DR AL ON THE PHONE W/ DR. ROME
--- NOTE | 2019-07-30 23:38 | NUR ---
CALLED SUP FOR TELE BED
[2019-07-31] VITALS (7 sets, daily range): BP systolic 130–162; BP diastolic 51–76
[2019-07-31] MEDS ORDERED: CLOP75TA15 PO (00:01)
[2019-07-31] MEDS ORDERED: DONE5TAB7 PO (00:02)
--- NOTE | 2019-07-31 00:03 | NUR ---
manohar gustafson: [phone] son- in -law, [facility]: [phone]
[2019-07-31] MEDS ORDERED: IV PREMIX D5 1/2NS + KCL 1,000 ML IV ONE ×2 (00:07→00:14)
--- NOTE | 2019-07-31 00:10 | NUR ---
report viral to Michaela on third floor
[2019-07-31] MEDS ORDERED: MAGNESIUM HYDROXIDE 30 ML UDC PO PRN (00:30)
[2019-07-31] MEDS ORDERED: Z GUARD REMEDY 2 OZ OINT TP PRN (00:30)
[2019-07-31] MEDS ORDERED: ONDANSETRON HCL/PF 4 MG/2 ML VIAL IVP PRN (00:30)
[2019-07-31] MEDS ORDERED: MAG HYDROX/AL HYDROX/SIMETH 30 ML UDC PO PRN (00:30)
[2019-07-31] MEDS ORDERED: ONDANSETRON HCL/PF 4 MG/2 ML VIAL ONE (00:45)
[2019-07-31] MEDS ORDERED: MORPHINE SULFATE INJ 4 MG/ML DISP.SYRIN ONE (00:46)
--- NOTE | 2019-07-31 00:50 | NUR ---
RECEIVED NEW ORDER FROM DR. AL FOR MORPHINE 4 MG IV ONCE AND ZOFRAN 4MG IV ONCE NOW DUE TO PT'S COMPLAIN OF ABD PAIN. NEW ORDERS NOTED AND ACARRIED OUT.
--- NOTE | 2019-07-31 01:09 | NUR ---
pt was transferred to 311 under ACLS
[2019-07-31] MEDS ORDERED: CEFTRIAXONE 1 G VIAL ONE (01:14)
[2019-07-31] MEDS: CEFTRIAXONE 1 G in IV D5W 50 ML IV SCH (01:26)
--- NOTE | 2019-07-31 01:30 | NUR ---
TELE ADMITTING NOTES PATIENT RECEIVED FROM ER VIA [facility] ACCOMPANIED BY ER STAFF. ABLE TO AMBULATE FROM GURNEY TO BED BUT WITH ASSISTANCE. PATIENT IS A/O X 3, BENINESE/ UKRANIAN SPEAKING MOSTLY. TELE MONITORS PLACED ON PATIENT. STABLE ON RA WITH BREATHING EVEN AND UNLABORED, NO SOB NOTED. NO SIGS OF ACUTE DISTRESS. NO COMPLAINTS OF PAIN AT THE MOMENT, JUST SMALL COMPLAINT OF ABDOMINAL PAIN. IV LOCATED ON R AC #18 PATENT AND INTACT. PATIENT ORIENTED TO ROOM AND STAFF. BELONGINGS ACCOUNTED FOR. SAFETY PRECAUTIONS IN PLACE WITH BED IN LOWEST POSITION, CALL LIGHT WITHIN REACH, BREAKS ON, SIDE RAILS UP. WILL CONTINUE TO MONITOR THROUUGHT THE SHIFT.
[2019-07-31] MEDS ORDERED: ONDANSETRON HCL/PF 4 MG/2 ML VIAL IV ONE (02:00)
[2019-07-31] MEDS ORDERED: MORPHINE SULFATE INJ 4 MG/ML DISP.SYRIN IV ONE (02:00)
--- NOTE | 2019-07-31 02:00 | NUR ---
APPLICATIONS SUPPORT ANALYST NOTES FOUNTAIN SERVER MESHA CADENA PERFORMED DIGITAL IMPACTION REMOVAL, BUT UNSUCCESSFUL- UNABLE TO RELEASE BM.
[2019-07-31 03:15] LABS: BASOPHILS % (AUTO) 0.3 % (0.0-2.0); HEMATOCRIT 38 % (33-45); HEMOGLOBIN 12.4 g/dL (11.5-14.8); LYMPHOCYTES # (AUTO) 0.9 /CMM (0.8-4.8); LYMPHOCYTES % (AUTO) 6.4 % (20.0-44.0); MEAN CORPUSCULAR HGB CONC 33 g/dl (31.0-36.0); MEAN CORPUSCULAR VOLUME 91 fL (82-100); MONOCYTES # (AUTO) 0.7 /CMM (0.1-1.30); MONOCYTES % (AUTO) 5.5 % (2.0-12.0); NEUTROPHILS # (AUTO) 11.6 /CMM (1.8-8.9); NEUTROPHILS % (AUTO) 87.8 % (43.0-81.0); PLATELET COUNT (AUTO) 339 /CMM (150-450); RED BLOOD CELL COUNT(AUTO) 4.19 MIL/uL (4.0-5.2); WHITE BLOOD COUNT (AUTO) 13.2 K/uL (4.3-11.0)
[2019-07-31 03:26] LABS: CALCIUM, SERUM 8.7 mg/dL (8.5-10.1); CREATININE 1.2 mg/dL (0.6-1.3); MAGNESIUM 2.5 mg/dL (1.8-2.4); PHOSPHORUS 3.5 mg/dL (2.5-4.9); POTASSIUM 4.6 mmol/L (3.5-5.1)
[2019-07-31 03:37] LABS: THYROID STIMULATING HORMONE 8.323 uIU/mL (0.358-3.74)
--- NOTE | 2019-07-31 06:30 | NUR ---
NURSING EXECUTIVE NOTES PATIENT IV PULLED OUT BY ACCIDENT. REPLACED NEW IV ON L AC #20.
--- NOTE | 2019-07-31 06:57 | NUR ---
MS RN CLOSING NOTES PATIENT CURRENTLY RESTING IN BED A/O X 2-3 NIGERIEN/ UKRANIAN SPEAKING. STABLE ON RA WITH BREATHING EVEN AND UNLABORED, NO SOB NOTED. NO SIGNS OF ACUTE DISTRESS. NO COMPLAINTS OF PAIN, SLIGHT DISCOMFORT OF THE ABDOMEN. TELE MONITOR READING SR. PATIENT HAS BEEN NPO SINCE ADMISSION 0100. IV ON L AC #18 RUNNING D51/2 NS + KCL @ 150 ML/ HR. SAFETY PRECAUTIONS IN PLACE WITH BED IN LOWEST POSITION, CALL LIGHT WITHIN REACH, BREAKS ON, SIDE RAILS UP, BED ALARM ON. WILL ENDORSE TO ONCOMING SHIFT ABOUT EMMA.
--- NOTE | 2019-07-31 07:41 | NUR ---
JACQUARD LACE WEAVER OPENING NOTES RECEIVED PATIENT IN BED, AWAKE, A/O X3. PATIENT BREATHING ON ROOM AIR; BREATHING EVEN AND UNLABORED. PER PATIENT NO PAIN AT THIS TIME. LAC GAUGE # 18 INTACT AND INFUSING D5 1/2 NS W KCL @ 150 ML/HR. PATIENT REMAINS NPO AND IS READY FOR PROCEDURE. SAFETY PRECAUTIONS IN PLACE; BED IN LOW POSITION AND LOCKED, RAILS UP X2, CALL LIGHT WITHIN REACH. WILL CONTINUE TO MONITOR PATIENT.
[2019-07-31] MEDS ORDERED: NA PHOS,M-B/NA PHOS,DI-BA 1 EA ENEMA RC ONE (08:00)
[2019-07-31] MEDS ORDERED: AMLODIPINE BESYLATE 5 MG TABLET PO SCH (09:00)
[2019-07-31] MEDS ORDERED: DULOXETINE HCL 30 MG CAPSULE.DR PO SCH (09:00)
[2019-07-31] MEDS ORDERED: METOPROLOL SUCCINATE 25 MG TAB.SR.24H PO SCH (09:00)
[2019-07-31] MEDS ORDERED: LOSARTAN POTASSIUM 50 MG TABLET PO SCH (09:00)
[2019-07-31] MEDS ORDERED: ANESTHESIA TRAY IN PYXIS 1 EA TRAY MC ONE ×2 (09:32→19:07)
[2019-07-31] MEDS: IV NS 0.9% 1,000 ML IV PRN ×2 (12:06→22:39)
[2019-07-31] MEDS ORDERED: MORPHINE SULFATE INJ 2 MG/ML DISP.SYRIN IV PRN (14:05)
--- NOTE | 2019-07-31 14:40 | NUR ---
ACCESS LEAD NOTES PATIENT DEVELOPED ABDOMINAL PAIN. WAS GRIMACING AND MOANING. PER MD ORDER ADMINISTERED PRN MORPHINE. WILL REASSESS.
--- NOTE | 2019-07-31 17:30 | NUR ---
MS RN NOTES PATIENT SEEN BY DR TAYLOR FOR SURGICAL CONSULT. DR ADVISED SURGERY AND SPOKE TO THE FAMILY. ALL CONSENTS SIGNED. PATIENT CONTINUE TO STAY NPO EXCEPT MEDS. WILL ENDORSE TO HEALTH SERVICES COORDINATOR NURSE.
--- NOTE | 2019-07-31 18:51 | NUR ---
INTERNET SALES REPRESENTATIVE CLOSING NOTES PATIENT IN BED, IN AND OUT OF SLEEP, A/O X2. PATIENT BREATHING ON ROOM AIR; BREATHING EVEN AND UNLABORED. PATIENT HAD ABDOMINAL PAIN THROUGHOUT THE DAY. PRN MEDICATION WAS ADMINISTERED TO RELIEVE THE PAIN. LAC GAUGE # 18 INTACT AND INFUSING NS AT 125 MLS/HR. PATIENT REMAINS NPO AND IS READY FOR SURGERY. ALL CONSENTS SIGNED AND FILED. FAMILY AWARE. SAFETY PRECAUTIONS IN PLACE; BED IN LOW POSITION AND LOCKED, RAILS UP X2, CALL LIGHT WITHIN REACH. WILL ENDORSE TO CUT OFF SAWYER NURSE.
--- NOTE | 2019-07-31 19:20 | NUR ---
COLLECTOR OF PORT NOTES PATIENT IN BED, ASLEEP, ALERT AND ORIENTED X 2. SENEGALESE SPEAKING. BREATHING EVEN AND UNLABORED ON 2 L NC. SHOWS NO SIGNS OF ACUTE RESPIRATORY DISTRESS, NO ACUTE PAIN. TELE MONITOR SR. IV ON LAC 18G RUNNING NS AT 125ML/HR. ITS CLEAN DRY AND INTACT. SHOWS NO SIGNS OF INFILTRATION, NO REDNESS. SAFETY PRECAUTIONS ON PLACE. BED IN LOWEST POSITION, LOCKED, AND CALL LIGHT KEPT WITHIN REACH. WILL CONTINUE TO MONITOR.
--- NOTE | 2019-07-31 19:25 | NUR ---
FEED INSPECTION SUPERVISOR NOTES PT TAKEN TO SURGERY. WILL CONTINUE TO MONITOR.
[2019-07-31] MEDS ORDERED: MIDAZOLAM HCL 2 MG/2ML VIAL ONE (19:34)
[2019-07-31] MEDS ORDERED: FENTANYL PF 250MCG/5ML AMPUL ONE (19:35)
[2019-07-31] MEDS ORDERED: FENTANYL PF 100MCG/2ML AMPUL ONE (19:35)
[2019-07-31] MEDS ORDERED: FAMOTIDINE/PF INJ 20 MG/2 ML VIAL IV ONE (19:36)
[2019-07-31] MEDS ORDERED: ROCURONIUM BROMIDE 50 MG/5 ML ONE (19:37)
[2019-07-31] MEDS ORDERED: LIDOCAINE HCL/MPF 1% 30 ML VIAL IJ ONE (20:54)
[2019-07-31] MEDS ORDERED: BUPIVACAINE MPF 0.5% W/EPI INJ 30 ML VIAL ONE (20:55)
[2019-07-31] MEDS ORDERED: BACITRACIN ZINC OINT (15 GM) 15 GM TUBE TP ONE (21:26)
[2019-07-31] MEDS ORDERED: PROPOFOL 100 ML ONE (21:37)
[2019-07-31] MEDS ORDERED: DONEPEZIL 5 MG TABLET PO SCH (22:00)
--- NOTE | 2019-07-31 22:15 | NUR ---
ICU/RN OPENING RECEIVED PATIENT FROM OR NURSES SEDATED AND INUTBATED WITH NO SIGN OF ANY DISTRESS. PATIENT IS TOLERATING VENT SETTINGS ORDERED. PN THE MONITOR SR WITH HR 68 ON BEDSIDE MONITOR. NO SIGN OF SOB, RESPIRATIONS EVEN AND UNLABORED., SP02 AT 100% VIA MECHANICAL VENT/ ETT 11/[address] FC DRAINING VIA GRAVITY WITH YELLOW OUTPUT. LAC #20 PATENT AND FLUSHING. DIPRIVAN AT 5MCG/KG/MIN AND LR AT 125CC/HR. ALL NEEDS ATTENDED/ WILL CONTINUE TO MONITOR PATIENT THROUGHOUT SHIFT.
--- NOTE | 2019-07-31 22:15 | NUR ---
RT NOTE RT called to OR to transport pt to ICU. Pt rec'd orally intubated via ETT sz #7.5 secured at the lip line. Pt placed on [facility] vent on noted settings as charted. Post intubation ABG and Xray are waiting on results. Alarms are set and audible. Vent plugged into red outlet. Ambu bag bedside. Will continue to monitor closely Addendum: 07/31/19 at 2251 by RY JAY RT Amended: Links added.
[2019-07-31] MEDS ORDERED: METRONIDAZOLE 500MG/ NS 100ML 500 MG in PREMIX 1 EA IV SCH (23:00)
[2019-07-31] MEDS ORDERED: ONDANSETRON HCL/PF 4 MG/2 ML VIAL IV PRN (23:00)
[2019-07-31] MEDS ORDERED: IV LR 1000 ML 1,000 ML IV ONE ×2 (23:00)
[2019-07-31] MEDS ORDERED: NOREPINEPHRINE 8 MG in IV NS 0.9% 242 ML IV PRN ×5 (23:00→23:30)
[2019-07-31] MEDS ORDERED: PROPOFOL 100 ML IV PRN (23:00)
[2019-07-31 23:31] LABS: ABG BASE EXCESS -6.6 mmol/L; ABG OXYGEN SATURATION 96.7 % (92.0-98.5); ABG PCO2 36.1 mmHg (35.0-45.0); ABG PO2 97.2 mmHg (75.0-100.0); AaDO2 146.5 mmHg; COHb 0.1 % (0.5-1.5); MetHb 0.5 % (0.0-1.5); O2Hb 96.1 % (94.0-97.0); SITE, ABG Right Brachial; VENT MODE, BG AC 12 450 40% +5
[2019-08-01] VITALS (24 sets, daily range): BP systolic 93–160; BP diastolic 38–79
[2019-08-01] MEDS ORDERED: METRONIDAZOLE 500MG/ NS 100ML 100 ML IV ONE (00:15)
[2019-08-01] MEDS: PANTOPRAZOLE 40 MG VIAL IV SCH ×2 (00:19→23:00)
[2019-08-01] MEDS: METRONIDAZOLE 500MG/ NS 100ML 500 MG in PREMIX 1 EA IV SCH ×3 (00:20→16:00)
[2019-08-01] MEDS ORDERED: CIPROFLOXACIN IV RTU 200 ML IV ONE (00:24)
--- NOTE | 2019-08-01 01:23 | NUR ---
ICU/RN ABG'S DONE, NOTIFIED VALE ROCHE ORDERS TO CHANGE RATE FROM 12 TO 16. OGT INSERTED AUSCULTATED FOR PLACEMENT. CHEST X-RAY DONE AT BEDSIDE POST INTUBATION AND OGT INSERTION
[2019-08-01] MEDS: CIPROFLOXACIN IV RTU 400 MG in PREMIX 1 EA IV SCH ×3 (01:26→23:00)
--- NOTE | 2019-08-01 01:43 | NUR ---
RATE CHANGED TO [address] COLLAZO. RN NOTIFIED.
[2019-08-01] MEDS: CEFTRIAXONE 1 G in IV D5W 50 ML IV SCH (02:55)
[2019-08-01 04:50] LABS: BASOPHILS % (AUTO) 0.2 % (0.0-2.0); HEMATOCRIT 29 % (33-45); HEMOGLOBIN 9.4 g/dL (11.5-14.8); LYMPHOCYTES # (AUTO) 0.8 /CMM (0.8-4.8); LYMPHOCYTES % (AUTO) 5.5 % (20.0-44.0); MEAN CORPUSCULAR HGB CONC 33 g/dl (31.0-36.0); MEAN CORPUSCULAR VOLUME 93 fL (82-100); MONOCYTES # (AUTO) 1.6 /CMM (0.1-1.30); MONOCYTES % (AUTO) 10.9 % (2.0-12.0); NEUTROPHILS # (AUTO) 12.1 /CMM (1.8-8.9); NEUTROPHILS % (AUTO) 83.4 % (43.0-81.0); PLATELET COUNT (AUTO) 235 /CMM (150-450); RED BLOOD CELL COUNT(AUTO) 3.09 MIL/uL (4.0-5.2); WHITE BLOOD COUNT (AUTO) 14.5 K/uL (4.3-11.0)
[2019-08-01 05:19] LABS: ALANINE AMINOTRANSFERASE 31 U/L (12-78); ALBUMIN 2.1 g/dL (3.4-5.0); ALKALINE PHOSPHATASE 39 U/L (46-116); ASPARTATE AMINOTRANSFERASE 42 U/L (15-37); BILIRUBIN,TOTAL 0.2 mg/dL (0.2-1.0); CARBON DIOXIDE 22 mmol/L (21-32); CHLORIDE 109 mmol/L (98-107); CREATININE 1.5 mg/dL (0.6-1.3); GLUCOSE 102 mg/dL (74-106); MAGNESIUM 2.4 mg/dL (1.8-2.4); PHOSPHORUS 3.8 mg/dL (2.5-4.9); POTASSIUM 5.1 mmol/L (3.5-5.1); SODIUM SERUM 141 mmol/L (136-145); TOTAL PROTEIN, SERUM 5.2 g/dL (6.4-8.2); UREA NITROGEN, BLOOD 41 mg/dL (7-18)
[2019-08-01] MEDS ORDERED: IV NS 0.9% 1,000 ML IV PRN (07:26)
[2019-08-01] MEDS ORDERED: PROPOFOL 10MG/ML 50ML 50 ML IV PRN (09:00)
[2019-08-01] MEDS ORDERED: DC PROPOFOL WHEN EXTUBATED XX PRN (09:00)
--- NOTE | 2019-08-01 09:30 | NUR ---
WOUND CARE CONSULT: PT PRESENTS WITH CLEAN, DRY INTACT ABDOMINAL DRESSING AND SACRAL ABRASION/SCRATCH. RECOMMENDATIONS MADE FOR SKIN PROTECTION AND WOUND CARE. DISCUSSED WITH NURSING STAFF. PT FOLLOWED BY SURGEON FOR ABDOMINAL INCISION. FIRST STEP LOW AIRLOSS MATTRESS ORDERED. CURRENT JEOVANY SCORE IS 11. WILL SEE PRN. LOPES IN AGREEMENT WITH PLAN OF CARE. Addendum: 08/01/19 at 6110 by JIA BARRETT WNDNU Amended: Links added.
[2019-08-01] MEDS: MORPHINE SULFATE INJ 2 MG/ML DISP.SYRIN IM PRN ×2 (09:57→23:13)
[2019-08-01 10:19] LABS: ABG BASE EXCESS -7.5 mmol/L; ABG OXYGEN SATURATION 97.9 % (92.0-98.5); ABG PCO2 25.8 mmHg (35.0-45.0); ABG PH 7.409 (7.350-7.450); ABG PO2 129.4 mmHg (75.0-100.0); AaDO2 126.1 mmHg; COHb 0.3 % (0.5-1.5); MetHb 0.4 % (0.0-1.5); O2Hb 97.2 % (94.0-97.0); SITE, ABG Right Radial
--- NOTE | 2019-08-01 10:35 | NUR ---
RT PER DR IGNACIO ORDER PATIENT WAS WEANED ON THE VENTILATOR AND EXTUBATED SUCCESSFULLY. PATIENT PLACED ON 3L N/C AND APPEARS COMFORTABLE AND IN NO DISTRESS. EDUARDO HANNA AT BEDSIDE.
[2019-08-01] MEDS: NEOMY SULF/BACITRAC ZN/POLY 15 GM TUBE TP SCH (17:00)
--- NOTE | 2019-08-01 17:20 | NUR ---
physician communication Dr. Pollard aware of: - 100F temp through out shift (ordered tylenol per rectum) - per daughter, patient has not eaten anything, morphine was given and no BM from colostomy (said to wait, no need for milk of mag) - 150mL dark urine for entire shift (received new IVF orders) - med recon not done (said he will do) -chemical prophylaxis ordered
--- NOTE | 2019-08-01 17:46 | NUR ---
CLIENT EXECUTIVE closing notes - Patient is awake, verbal, oriented to self. Tolerated extubation today, attached to 3L O2 via NC, no SOB, SPO2 98%. Tele monitor attached, v pacing, underlying rhythm per night monitor SR, w/ PVCs, BBB. Colostomy bag intact, total output for shift was 15mL pink/red tinged fluid. NPO status maintained. cornell catheter draining to gravity, dark urine, 150 mL total output for shift. seen by wound care nurse. order for specialty mattress placed, call central supply, arrival tomorrow. restraints placed as patient actively pulling at IV lines and trying to get out of bed. Able to dangle feet and stand for about one minute. appears weak and unsteady. L AC 20 G + R AC 20G C/D/I, patent, no s/s infiltration. d5 1/2 NS @100mL/hr. Temp 100F, tylenol per rectum ordered and given. medicated x1 for pain w/ morphine. Per surgery, start clear liquid after patient has BM. bed locked, low, side rails upx2, bed alarm on, call light within reach
[2019-08-01] MEDS ORDERED: ACETAMINOPHEN 650 MG/SUPP.RECT RC PRN (18:00)
[2019-08-01] MEDS: IV D5/0.45 NACL 1,000 ML IV PRN (18:10)
--- NOTE | 2019-08-01 20:00 | NUR ---
Received patient awake alert oriented x1 otherwise confused and disoriented.Denies pain, follows simple commands.Dx: Sigmoid Volvulus,Bowel obstruction.S/P Explor Lap with midline abd incision . Dressing C/D/I.With H/O PMM,HTN,CAD,CHF,AFIB,UTI,KAREN and Dementia.Reoriented to place and time.Respiration even and unlabored with O2 4LNC tolerating well.Saturation 93%-100%.Afib with occasional pvc's,BBB.NPO with IVF infusing well.Colostomy intact.No BM noted just small amount reddish liquid output.Turned and repositioned to comfort.Safety precaution maintained with side rails up x 3.Bed low and locked position.Call light at bedside.Will continue frequent rounding and monitoring.
[2019-08-01] MEDS: HEPARIN SODIUM, PORCINE 5000 UNITS/1 ML VIAL SQ SCH (21:07)
[2019-08-02] VITALS (14 sets, daily range): BP systolic 115–163; BP diastolic 47–92
--- NOTE | 2019-08-02 | NUR ---
Patient medicated with PRN pain medication.Verbalized relief.VSS.Turned and repositioned.
[2019-08-02] MEDS: METRONIDAZOLE 500MG/ NS 100ML 500 MG in PREMIX 1 EA IV SCH ×4 (00:16→23:52)
[2019-08-02] MEDS: CEFTRIAXONE 1 G in IV D5W 50 ML IV SCH (01:10)
[2019-08-02 04:29] LABS: BASOPHILS % (AUTO) 0.2 % (0.0-2.0); EOSINOPHILS % (AUTO) 0.1 % (0.0-6.0); HEMATOCRIT 26 % (33-45); HEMOGLOBIN 8.3 g/dL (11.5-14.8); LYMPHOCYTES % (AUTO) 7.3 % (20.0-44.0); MEAN CORPUSCULAR HGB CONC 33 g/dl (31.0-36.0); MEAN CORPUSCULAR VOLUME 92 fL (82-100); MONOCYTES # (AUTO) 0.7 /CMM (0.1-1.30); MONOCYTES % (AUTO) 4.8 % (2.0-12.0); NEUTROPHILS # (AUTO) 12.2 /CMM (1.8-8.9); NEUTROPHILS % (AUTO) 87.6 % (43.0-81.0); PLATELET COUNT (AUTO) 234 /CMM (150-450); RED BLOOD CELL COUNT(AUTO) 2.78 MIL/uL (4.0-5.2); WHITE BLOOD COUNT (AUTO) 13.9 K/uL (4.3-11.0)
[2019-08-02 04:48] LABS: ALANINE AMINOTRANSFERASE 43 U/L (12-78); ALBUMIN 2.1 g/dL (3.4-5.0); ALKALINE PHOSPHATASE 48 U/L (46-116); ASPARTATE AMINOTRANSFERASE 173 U/L (15-37); BILIRUBIN,TOTAL 0.2 mg/dL (0.2-1.0); CALCIUM, SERUM 7.1 mg/dL (8.5-10.1); CARBON DIOXIDE 22 mmol/L (21-32); CHLORIDE 109 mmol/L (98-107); CREATININE 1.7 mg/dL (0.6-1.3); GLUCOSE 101 mg/dL (74-106); MAGNESIUM 2.6 mg/dL (1.8-2.4); PHOSPHORUS 2.6 mg/dL (2.5-4.9); POTASSIUM 4.6 mmol/L (3.5-5.1); SODIUM SERUM 139 mmol/L (136-145); TOTAL PROTEIN, SERUM 5.2 g/dL (6.4-8.2); UREA NITROGEN, BLOOD 48 mg/dL (7-18)
--- NOTE | 2019-08-02 06:20 | NUR ---
Patient resting appears comfortable in bed.VSS.Cardiac monitoring now shows SR 82.Respiration even and unlabored.Hygienic measures done.IVF infusing well. No bm noted.Remains NPO.Turned and repositioned.Will endorse to day shift for continuity of care.
--- NOTE | 2019-08-02 07:00 | NUR ---
RN NOTES RECEIVED PT ON BED , A/Ox1, CONFUSED , DOES NOT FOLLOW COMMAND, ON 3L O2 N/C , O2 SAT WNL MIDLINE INCISION, CLEAN, DRY AND INTACT, COLOSTOMY WITH SEROSANGUINEOUS OUT PUT, No BM YET, DUEÑAS DRAINING TO GRAVITY, D51/2NS AT 100 CC/HR RUNNING VIA R AC IV SITE , SR UP x3, CALL LIGHT WITHIN EASY REACH, BED LOCKED AND IN LOWEST POSITION, CONTINUE TO MONITOR .
[2019-08-02] MEDS: IV D5/0.45 NACL 1,000 ML IV PRN (07:19)
[2019-08-02] MEDS: HEPARIN SODIUM, PORCINE 5000 UNITS/1 ML VIAL SQ SCH ×2 (08:58→22:06)
[2019-08-02] MEDS: NEOMY SULF/BACITRAC ZN/POLY 15 GM TUBE TP SCH ×2 (08:59→17:35)
--- NOTE | 2019-08-02 10:15 | NUR ---
RN NOTES PT TRANSFERRED TO ROOM [address] [place] [address] , IN STABLE CONDITION. REPORT GIVEN TO MARIAH CLARK FOR CONTINUITY OF CARE . Addendum: 08/02/19 at 1029 by CISCO ANDERSON RN PT TRANSFERRED VIA ACLS PROTOCOL.
--- NOTE | 2019-08-02 10:40 | NUR ---
RN NOTE: TRANSFER RECEIVED TRANSFER PATIENT FROM ICU. PATIENT IS INTERMITTENTLY SLEEPING. NO SIGNS OF DISTRESS NOTED. BREATHING IS EVEN, UNLABORED WITH EQUAL RISE AND FALL OF CHEST. AOX1. ON TELE MONITOR. SR WITH PVC/PAC AND BBB. COLOSTOMY BAG PRESENT. DUEÑAS CATHETER PRESENT AND INTACT. 18G IN LAC AND RAC, BOTH CLEAN, DRY AND INTACT. FLUIDS RUNNING ORDERED. SAFETY PRECAUTIONS IN PLACE. BED LOCKED, LOW POSITION WITH 2 SIDE RAILS UP FOR SAFETY. CALL LIGHT WITHIN REACH.
[2019-08-02] MEDS: CIPROFLOXACIN IV RTU 400 MG in PREMIX 1 EA IV SCH ×2 (11:04→22:08)
--- NOTE | 2019-08-02 18:28 | NUR ---
RN CLOSING NOTE: PATIENT IS CURRENTLY SLEEPING WITH NO SIGNS OF DISTRESS NOTED. BREATHING IS EVEN, UNLABORED WITH EQUAL RISE AND FALL OF CHEST. AOX1-2. MALDIVIAN SPEAKING. ON TELE MONITOR. SR WITH PVC/PAC AND BBB. COLOSTOMY BAG PRESENT. DEUÑAS CATHETER PRESENT AND INTACT. 18G IN LAC AND RAC, BOTH CLEAN, DRY AND INTACT. FLUIDS RUNNING ORDERED. SAFETY PRECAUTIONS IN PLACE. BED LOCKED, LOW POSITION WITH 2 SIDE RAILS UP FOR SAFETY. CALL LIGHT WITHIN REACH. Addendum: 08/02/19 at 1835 by SARA HULL RN SPOKE WITH NIDIA LEE AND UPDATED HER ON PLAN OF CARE. WILL ENDORSE CARE TO JORGE CLARK FOR EMMA.
--- NOTE | 2019-08-02 19:45 | NUR ---
RN OPENING NOTES RECEIVED REPORT FROM DAWIT LEMUS. FOUND Pt AWAKE, RESTING IN BED. NO S/S OF ACUTE DISTRESS OR SOB NOTED. PER REPORT Pt IS A/OX1-2, CONFUSED WITH DEMENTIA, NAURUAN SPEAKING ONLY. ON TELE MONITOR, WITH TELE READING: SR 76 WITH PVCs&PACs. DUEÑAS CATHETER IN PLACE, DRAINING WELL. LLQ COLOSTOMY BAG IN PLACE, NO BM NOTED OR GAS NOTED IN BAG. ABDL SX SITE WITH SX BANDAGE NOTED, INTACT AND CLEAN. Pt IS STILL NPO STATUS. PER REPORT WAITING FOR Pt TO HAVE BM TO ADV TO CLEAR LIQUID. IV ACCESS ON RAC #18G, IVF D5 1/2NS RUNNING @100ML/HR, & LAC #18G, SL. SAFETY MEASURES IN PLACE. BED LOW, LOCKED, HOB ELEVATED, SIDE RAILS UP, CALL LIGHT AND BEDSIDE TABLE WITHIN REACH. WILL CONTINUE TO MONITOR Pt's CONDITION AND SAFETY THROUGHOUT THE NIGHT.
[2019-08-02] MEDS: PANTOPRAZOLE 40 MG VIAL IV SCH (22:08)
[2019-08-03] VITALS: BP 168/71
[2019-08-03] MEDS: CEFTRIAXONE 1 G in IV D5W 50 ML IV SCH ×2 (01:14→23:58)
[2019-08-03] MEDS: IV D5/0.45 NACL 1,000 ML IV PRN (03:37)
[2019-08-03 04:00] VITALS: BP 168/71
[2019-08-03 06:29] LABS: BASOPHILS % (AUTO) 0.2 % (0.0-2.0); EOSINOPHILS % (AUTO) 0.5 % (0.0-6.0); HEMATOCRIT 28 % (33-45); HEMOGLOBIN 9.1 g/dL (11.5-14.8); LYMPHOCYTES # (AUTO) 1.5 /CMM (0.8-4.8); LYMPHOCYTES % (AUTO) 9.3 % (20.0-44.0); MEAN CORPUSCULAR HGB CONC 33 g/dl (31.0-36.0); MEAN CORPUSCULAR VOLUME 91 fL (82-100); MONOCYTES # (AUTO) 0.7 /CMM (0.1-1.30); MONOCYTES % (AUTO) 4.3 % (2.0-12.0); NEUTROPHILS # (AUTO) 14.3 /CMM (1.8-8.9); NEUTROPHILS % (AUTO) 85.7 % (43.0-81.0); PLATELET COUNT (AUTO) 283 /CMM (150-450); RED BLOOD CELL COUNT(AUTO) 3.04 MIL/uL (4.0-5.2); WHITE BLOOD COUNT (AUTO) 16.7 K/uL (4.3-11.0)
--- NOTE | 2019-08-03 06:47 | NUR ---
RN CLOSING NOTES NO SIGNIFICANT CHANGES IN Pt's CONDITION. Pt REMAINS STABLE PER BASELINE. NO S/S OF ACUTE DISTRESS OR SOB NOTED DURING THE NIGHT. Pt IS RESTING COMFORTABLY IN BED. ALL NEEDS MET AND ATTENDED TO. SAFETY MEASURES IN PLACE. BED LOW, LOCKED, HOB ELEVATED, SIDE RAILS UP, CALL LIGHT AND BEDSIDE TABLE WITHIN REACH. BED ALARM ON. TELE READING SR 76, WITH PVC's & PACs. WILL ENDORSE TO DAYSHIFT RN FOR Pt's EMMA.
[2019-08-03 06:55] LABS: CALCIUM, SERUM 7.7 mg/dL (8.5-10.1); CREATININE 1.2 mg/dL (0.6-1.3); MAGNESIUM 2.6 mg/dL (1.8-2.4); PHOSPHORUS 2.1 mg/dL (2.5-4.9); POTASSIUM 4.2 mmol/L (3.5-5.1)
--- NOTE | 2019-08-03 07:30 | NUR ---
Tele/RN Opening Note Received patient AO x 1-2, able to responds all stimuli, denies does no appears pain or any discomfort. Skin is warm to touch, clean/dry. Respiratory even and unlabored at 3LPM oxygen, no distress observed. Continue to IVF D5 1/2 at 100ml, waiting bowel active. Keep lower position of the bed with locked wheel, side rails up for safety. Call light within reach, will continue to monitor.
[2019-08-03 08:00] VITALS: BP 123/72
[2019-08-03] MEDS: HEPARIN SODIUM, PORCINE 5000 UNITS/1 ML VIAL SQ SCH (08:38)
[2019-08-03] MEDS: NEOMY SULF/BACITRAC ZN/POLY 15 GM TUBE TP SCH ×2 (08:44→17:00)
[2019-08-03] MEDS ORDERED: K PHOS NEUTRAL 250 MG TABLET PO ONE (12:30)
[2019-08-03] MEDS: MORPHINE SULFATE INJ 2 MG/ML DISP.SYRIN IM PRN (13:17)
[2019-08-03] MEDS ORDERED: METOPROLOL TARTRATE INJ 5 MG/5 ML AMPUL IVP PRN (14:30)
--- NOTE | 2019-08-03 15:23 | NUR ---
Patient had episode of dropped HR from 123 to 54 pause >3sec. Informed Dr. Pollard.
[2019-08-03 16:00] VITALS: BP 134/99
--- NOTE | 2019-08-03 18:30 | NUR ---
Tele/RN Closing note Patient is in bed, resting comfortable, does no c/o pain or discomfort. Skin is intact, running IVF/NS at 100 ml/hr. Respiratory even and unlabored with oxygen at 3LPM. Kept lower position if the with locked wheel and elevated head of bed. HR stable. Call light reach, all needs met. Will endorse side puller.
--- NOTE | 2019-08-03 19:45 | NUR ---
RN OPENING NOTES RECEIVED REPORT FROM DAYSHIFT RN LUC. FOUND Pt AWAKE, RESTING IN BED. NO S/S OF ACUTE DISTRESS OR SOB NOTED. Pt IS A/OX1-2, SAMOAN SPEAKING ONLY. ON TELE MONITOR WITH TELE READING SR 89, WITH BBB & PVCs. DUEÑAS CATHETER IN PLACE, DRAINING WELL. COLOSTOMY BAG ON LLQ IN PLACE, NO BM NOTED DURING THE DAYSHIFT, BUT GAS WAS PASSED; Pt WAS ADV TO CLEAR LIQUID DIET. IV ACCESS ON RAC #20G & LAC #18G. SAFETY MEASURES IN PLACE. BED LOW, LOCKED, HOB ELEVATED, SIDE RAILS UP, CALL LIGHT AND BEDSIDE TABLE WITHIN REACH. BED ALARM ON. WILL CONTINUE TO MONITOR Pt's CONDITION & SAFETY THROUGHOUT THE NIGHT.
[2019-08-03 20:00] VITALS: BP 145/78
[2019-08-03 20:30] VITALS: BP 145/78
--- NOTE | 2019-08-03 21:00 | NUR ---
RN NOTES ORAL TEMP OF 100F. PROVIDED COOLING MEASURES & COOL BED BATH. WILL CONTINUE TO MONITOR Pt's TEMP.
[2019-08-03] MEDS: PANTOPRAZOLE 40 MG VIAL IV SCH (22:48)
[2019-08-03] MEDS: ENOXAPARIN SODIUM 30 MG/0.3 ML DISP.SYRIN SQ SCH (22:49)
[2019-08-04] VITALS (7 sets, daily range): BP systolic 123–143; BP diastolic 67–89
--- NOTE | 2019-08-04 | NUR ---
RN NOTES ORAL TEMP DECREASED TO 98.7
--- NOTE | 2019-08-04 03:00 | NUR ---
RN NOTES Pt STARTED DESATING TO LOW 80s ON 4L NC, KEPT INCREASING O2, BARELY REACHED 86% ON 5L NC. CHANGED TO MASK ON 10L O2, HIGHEST O2 SAT WAS @93%. INFORMED LEADERSHIP RECRUITER HOSPITALIST TRINA COLLAZO; GAVE STAT ORDER FOR ABG, CMP, & CXR. WILL CARRY OUT DUSTY.
[2019-08-04 03:44] LABS: ABG BASE EXCESS -4.8 mmol/L; ABG PCO2 26.3 mmHg (35.0-45.0); ABG PH 7.451 (7.350-7.450); ABG PO2 74.3 mmHg (75.0-100.0); AaDO2 324.6 mmHg; COHb 0.1 % (0.5-1.5); MetHb 0.3 % (0.0-1.5); O2Hb 94.6 % (94.0-97.0); SITE, ABG Right Radial; VENT MODE, BG simple mask
[2019-08-04 03:57] LABS: ALANINE AMINOTRANSFERASE 64 U/L (12-78); ALBUMIN 2.2 g/dL (3.4-5.0); ALKALINE PHOSPHATASE 61 U/L (46-116); ASPARTATE AMINOTRANSFERASE 147 U/L (15-37); BILIRUBIN,TOTAL 0.4 mg/dL (0.2-1.0); CALCIUM, SERUM 8.3 mg/dL (8.5-10.1); CARBON DIOXIDE 21 mmol/L (21-32); CHLORIDE 106 mmol/L (98-107); GLUCOSE 126 mg/dL (74-106); POTASSIUM 4.1 mmol/L (3.5-5.1); SODIUM SERUM 138 mmol/L (136-145); TOTAL PROTEIN, SERUM 5.9 g/dL (6.4-8.2); UREA NITROGEN, BLOOD 22 mg/dL (7-18)
--- NOTE | 2019-08-04 04:00 | NUR ---
RN NOTES GLASS POLISHER KALEY COLLAZO DID NOT GIVE ANY NEW ORDERS. SAID IS OK TO KEEP Pt ON MASK 10L ON THE FLOOR. WILL CONTINUE TO MONITOR Pt's CONDITION.
--- NOTE | 2019-08-04 07:39 | NUR ---
SUPERVISOR BOILER REPAIR OPENING NOTES RECEIVED PATIENT IN BED. ASLEEP. PATIENT ON OXYGEN THERAPY VIA A FACE MASK AT 10 LPM SATURATING AT 94%. NO SIGNS OF SOB AT THIS TIME BUT BUT WILL CONTINUE TO MONITOR PATIENT FOR ANY CHANGE. NO SIGNS OF PAIN NOTED SUCH FACIAL GRIMACING OR MOANING. DUEÑAS CATHETER IN PLACE, DRAINING WELL. COLOSTOMY BAG ON LLQ IN PLACE, NO BM NOTED DURING THE DAYSHIFT, BUT GAS WAS PASSED. LAC # 18 SL AND RAC #20 PRESENT, INTACT AND FLUSHING WELL. SAFETY PRECAUTIONS IN PLACE; BED IN LOW POSITION AND LOCKED, RAILS UP X2, CALL LIGHT WITHIN REACH. WILL CONTINUE TO MONITOR PATIENT.
--- NOTE | 2019-08-04 07:50 | NUR ---
RN CLOSING NOTES NO OTHER SIGNIFICANT CHANGES IN Pt's CONDITION. ALL NEEDS MET AND ATTENDED. NO OTHER S/S OF ACUTE DISTRESS OR SOB NOTED DURING THE NIGHT. Pt IS ASLEEP, RESTING COMFORTABLY IN BED. ON MASK 10L. DUEÑAS CATHETER IN PLACE, DRAINING WELL. TELE READING SR 80s. SAFETY MEASURES IN PLACE. ENDORSED TO DAYSHIFT RN FOR Pt's EMMA.
[2019-08-04] MEDS: NEOMY SULF/BACITRAC ZN/POLY 15 GM TUBE TP SCH ×2 (08:08→17:45)
[2019-08-04] MEDS: FUROSEMIDE 40 MG/4 ML VIAL IV SCH ×3 (08:59→17:00)
--- NOTE | 2019-08-04 10:04 | NUR ---
RESIDENT PROGRAMS ASSISTANT NOTES PATIENT STARTED TO DESATURATE TO LOW 80S ON 10 L. PATIENT CRACKLY. RT CONTACTED. RT CAME TO SEE THE PATIENT AND REPLACED MASK TO A NON-REBREATHER WITH OPEN OXYGEN. IT TOOK A WHILE FOR THE PATIENT TO SATURATE IN THE 90S. SUCTION PERFORMED. PATIENT LOOKS WEAK. RT STILL IN THE ROOM WITH THE PATIENT. CHARGE NURSE NOTIFIED. WILL CONTINUE TO MONITOR PATIENT.
[2019-08-04] MEDS: METOPROLOL TARTRATE INJ 5 MG/5 ML AMPUL IVP PRN (14:58)
[2019-08-04 15:37] LABS: BASOPHILS # (AUTO) 0.2 /CMM (0.0-0.2); EOSINOPHILS % (AUTO) 0.6 % (0.0-6.0); HEMATOCRIT 37 % (33-45); HEMOGLOBIN 11.7 g/dL (11.5-14.8); LYMPHOCYTES # (AUTO) 1.2 /CMM (0.8-4.8); LYMPHOCYTES % (AUTO) 6.6 % (20.0-44.0); MEAN CORPUSCULAR HGB CONC 32 g/dl (31.0-36.0); MEAN CORPUSCULAR VOLUME 92 fL (82-100); MONOCYTES # (AUTO) 1.1 /CMM (0.1-1.30); MONOCYTES % (AUTO) 6.1 % (2.0-12.0); NEUTROPHILS # (AUTO) 15.2 /CMM (1.8-8.9); NEUTROPHILS % (AUTO) 85.7 % (43.0-81.0); PLATELET COUNT (AUTO) 371 /CMM (150-450); RED BLOOD CELL COUNT(AUTO) 3.98 MIL/uL (4.0-5.2); WHITE BLOOD COUNT (AUTO) 17.7 K/uL (4.3-11.0)
--- NOTE | 2019-08-04 16:00 | NUR ---
BROKERAGE COORDINATOR NOTES PATIENT IS ON NON-REBREATHER MASK, BREATHING IS LABORED AT TIMES, SATURATING AT 95-99%. HR IS ELEVATED 150. ATTENDING PHYSICIAN (DR TORRES) NOTIFIED. METOPROLOL ORDERED BY MD AND ADMINISTERED. AFTER METOPROLOL, IN ABOUT 10 MIN, HEART HAD A DROP IN HEART RATE TO 80s AND A 3sec PAUSE. AT THIS TIME PATIENT SINUS RHYTHM IN THE 80S. ATTENDING PHYSICIAN AWARE. WILL CONTINUE TO MONITOR PATIENT.
[2019-08-04 16:06] LABS: BAND % (MANUAL) 3 % (0.0-5.0); LYMPHOCYTES % (MANUAL) 10 % (16-48); MONOCYTES % (MANUAL) 4 % (0-11.0); NEUTROPHILS % (MANUAL) 83 (42-76)
--- NOTE | 2019-08-04 18:20 | NUR ---
TAX INTERN NOTES PHARMACY HAD TWO ORDERS ENTERED FOR LASIX INJ. SPOKE TO PHARMACY. JUST ONE OF THEM IS CORRECT.
[2019-08-04] MEDS ORDERED: FUROSEMIDE 40 MG/4 ML VIAL IV SCH (18:30)
--- NOTE | 2019-08-04 18:54 | NUR ---
PLATEN BUILDER UP CLOSING NOTES PATIENT CURRENTLY IN BED, AWAKE. PATIENT ON OXYGEN THERAPY VIA NON-REBREATHER MASK AT 15 LPM SATURATING AT 97%. PATIENT COMPLAINING OF DIFFICULTY BREATHING. MD, RT AND CHARGE NURSE ALL AWARE OF THE SITUATION. EXTERNAL CARDIAC MONITORING WITH A READING OF SINUS TACHY 130. DUEÑAS CATHETER IN PLACE, DRAINING WELL. COLOSTOMY BAG ON LLQ IN PLACE, NO BM NOTED DURING THE DAYSHIFT, BUT GAS WAS PASSED. LAC # 18 SL AND RAC #20 PRESENT, INTACT AND FLUSHING WELL. SAFETY PRECAUTIONS IN PLACE; BED IN LOW POSITION AND LOCKED, RAILS UP X2, CALL LIGHT WITHIN REACH. WILL ENDORSE TO SUPERVISORY EXAMINER NURSE.
--- NOTE | 2019-08-04 20:00 | NUR ---
RN NOTES RECEIVED PT. AWAKE, A/OX2 LEBANESE SPEAKING, SPEAK A LITTLE ESTONIAN, F/C DRAINING CLEAR YELLOW URINE, HEALTH EDUCATION ASSISTANT WAS CALLING BECAUSE PT. HEART RATE IS GOING BETWEEN 146-158, COLOSTOMY BAG IN PLACE, CALL LIGHT WITHIN REACH, [id number], WILL CONTINUE TO MONITOR
--- NOTE | 2019-08-04 20:30 | NUR ---
RN NOTES ORDERED RT TO DO STAT EKG. A-FIB WITH RVR WILL CALL THE DOCTOR IN CALL Addendum: 08/04/19 at 2343 by VESTA CARBALLO RN WILL CALL THE DOCTOR PACKAGE PICK UP
--- NOTE | 2019-08-04 21:15 | NUR ---
RN NOTES SPOKE TO DR. COLLAZO REGARDING PT. EKG- AFIB WITH RVR [id number], DR. COLLAZO ORDERED TO TRANSFER TO [facility] AND GIVEN CORDARONE 150MG IV AND DRIP.
[2019-08-04] MEDS: ENOXAPARIN SODIUM 30 MG/0.3 ML DISP.SYRIN SQ SCH (21:16)
--- NOTE | 2019-08-04 21:30 | NUR ---
RN NOTES TRANSFER TO [facility] FOR AMIODARONE DRIP
[2019-08-04] MEDS ORDERED: AMIODARONE 150 MG/3 ML VIAL IV ONE ×2 (21:45→22:21)
[2019-08-04] MEDS ORDERED: AMIODARONE 150 MG in IV D5W 100 ML IV ONE (22:00)
[2019-08-04] MEDS ORDERED: AMIODARONE 900 MG in IV D5W 482 ML IV PRN (22:30)
--- NOTE | 2019-08-04 23:42 | NUR ---
WILL THE DOCTOR [employer] Addendum: 08/04/19 at 2343 by VESTA CARBALLO RN WRONG PATIENT
[2019-08-05] MEDS: CEFTRIAXONE 1 G in IV D5W 50 ML IV SCH (02:03)
[2019-08-05] MEDS: PANTOPRAZOLE 40 MG VIAL IV SCH ×2 (02:03→23:37)
[2019-08-05] MEDS: MORPHINE SULFATE INJ 2 MG/ML DISP.SYRIN IM PRN (02:09)
[2019-08-05] MEDS ORDERED: FUROSEMIDE 40 MG/4 ML VIAL IV ONE (03:30)
[2019-08-05 03:45] LABS: ABG BASE EXCESS -7.6 mmol/L; ABG OXYGEN SATURATION 80.6 % (92.0-98.5); ABG PCO2 27.2 mmHg (35.0-45.0); ABG PH 7.389 (7.350-7.450); ABG PO2 49.1 mmHg (75.0-100.0); AaDO2 492.7 mmHg; COHb 0.1 % (0.5-1.5); MetHb 0.3 % (0.0-1.5); O2Hb 80.3 % (94.0-97.0); SITE, ABG Right Radial; VENT MODE, BG 15L NRB
--- NOTE | 2019-08-05 04:00 | NUR ---
pt placed on high flow n/c for decreased spo2 and [id number] po2 on abg. settings 55lpm 90%fio2 Addendum: 08/05/19 at 0648 by ANDREI GALICIA Amended: Links added.
--- NOTE | 2019-08-05 07:15 | NUR ---
RN NOTES RECEIVED FROM [facility] PATIENT TRANSFERRED BY TWO STAFFS ON NON REBREATHER MASK WITH O2 SAT OF 86-88% AT 100% OXYGENATION. ALERT BUT VERY CONFUSED. hEART RATE AT 139BPM. AMIO DRIP STARTED AT 80MG 22:49 AND TITRATED TO 40MHG AT 04:49, HEART RATE FROM 70-80BPM. NO ADVERSE EFFECT NOTED. SPOKE WITH DR JOHNSON REGARDING 02SAT DECLINING INSPITE OF 100% OXYGENATION. ORDERED ABG AND BASED ON THE RESULT ORDERED FOR HIGH FLOW AND FUROSEMIDE, NOTED AND CARRIED OUT. OSSAT INCREASED TO 88-91%. PATIENT MOANING AND CRYING WITH NO SENSIBLE WORDS. hEART RATE 70-80 BPM OTHER VITAL SIGNS WNL
--- NOTE | 2019-08-05 07:20 | NUR ---
ENGRAVER MACHINE NOTES PATIENT IN BED A/OX4 IRAQI SPEAKER, NO ISOLATION, ON HIGH FLOW SATURATING 91-92%. ON AMIODARONE HR 72. ON DUEÑAS 50 CC OUTPUT NOTED. RIGHT AC SALINE LOCK PATENT. PATIENT HAS COLOSTOMY. CALL LIGHT WITHIN REACH BED AT THE LOWEST POSITION LOCKED. WILL FOLLOW UP WITH THE PATIENT `S CONDITION.
[2019-08-05 07:48] LABS: BASOPHILS # (AUTO) 0.1 /CMM (0.0-0.2); BASOPHILS % (AUTO) 0.5 % (0.0-2.0); HEMATOCRIT 35 % (33-45); HEMOGLOBIN 11.3 g/dL (11.5-14.8); LYMPHOCYTES # (AUTO) 1.1 /CMM (0.8-4.8); LYMPHOCYTES % (AUTO) 7.2 % (20.0-44.0); MEAN CORPUSCULAR HGB CONC 32 g/dl (31.0-36.0); MEAN CORPUSCULAR VOLUME 91 fL (82-100); MONOCYTES # (AUTO) 1.3 /CMM (0.1-1.30); NEUTROPHILS # (AUTO) 13.2 /CMM (1.8-8.9); NEUTROPHILS % (AUTO) 84.3 % (43.0-81.0); PLATELET COUNT (AUTO) 379 /CMM (150-450); WHITE BLOOD COUNT (AUTO) 15.7 K/uL (4.3-11.0)
[2019-08-05 07:58] LABS: ALANINE AMINOTRANSFERASE 165 U/L (12-78); ALBUMIN 2.1 g/dL (3.4-5.0); ALKALINE PHOSPHATASE 81 U/L (46-116); ASPARTATE AMINOTRANSFERASE 328 U/L (15-37); BILIRUBIN,TOTAL 0.5 mg/dL (0.2-1.0); CALCIUM, SERUM 8.6 mg/dL (8.5-10.1); CARBON DIOXIDE 20 mmol/L (21-32); CHLORIDE 105 mmol/L (98-107); CREATININE 1.7 mg/dL (0.6-1.3); GLUCOSE 161 mg/dL (74-106); MAGNESIUM 2.3 mg/dL (1.8-2.4); PHOSPHORUS 6.6 mg/dL (2.5-4.9); POTASSIUM 4.8 mmol/L (3.5-5.1); SODIUM SERUM 139 mmol/L (136-145); TOTAL PROTEIN, SERUM 6.1 g/dL (6.4-8.2); UREA NITROGEN, BLOOD 41 mg/dL (7-18)
[2019-08-05 08:00] VITALS: BP 141/79
[2019-08-05] MEDS ORDERED: FUROSEMIDE 20 MG/2 ML VIAL IV ONE (08:30)
[2019-08-05] MEDS: CLOPIDOGREL BISULFATE 75 MG TABLET PO SCH (08:59)
[2019-08-05] MEDS: NEOMY SULF/BACITRAC ZN/POLY 15 GM TUBE TP SCH ×2 (09:15→17:03)
[2019-08-05 12:00] VITALS: BP 136/63
[2019-08-05 12:41] LABS: CALCIUM, SERUM 8.5 mg/dL (8.5-10.1); CARBON DIOXIDE 19 mmol/L (21-32); CHLORIDE 107 mmol/L (98-107); CREATININE 1.8 mg/dL (0.6-1.3); GLUCOSE 157 mg/dL (74-106); POTASSIUM 4.4 mmol/L (3.5-5.1); SODIUM SERUM 141 mmol/L (136-145); UREA NITROGEN, BLOOD 49 mg/dL (7-18)
[2019-08-05 16:00] VITALS: BP 122/56
--- NOTE | 2019-08-05 17:00 | NUR ---
UNDERWRITING ANALYST NOTES PATIENT HAD 50 ML OF WATERY STOOL AND A SMALL AMOUNT OF FORMED BROWN STOOL IN COLOSTOMY.
--- NOTE | 2019-08-05 18:56 | NUR ---
DISCHARGE COORDINATOR NOTES PATIENT IN BED ON RESTRAINS TRIES TO REMOVE HIGH FLOW NASAL CANNULA. NO PAIN AT THIS TIME. ALL NEED ATTENDED MEDS GIVEN. CALL LIGHT WITHIN REACH BED AT THE LOWEST POSITION LOCKED. HANDED REPORT TO NIPPLE MACHINE OPERATOR NURSE.
[2019-08-05] MEDS ORDERED: FEE PK DOSING 1 MIN EA MC ONE (19:29)
--- NOTE | 2019-08-05 19:30 | NUR ---
ADVERTISING WRITER OPENING NOTES RECEIVED PATIENT IN BED AWAKE, A/O X2. ON HIGH FLOW SATURATING 91/92%. TOLERATING WELL NO SOB OR ACUTE DISTRESS NOTED AT THIS TIME. HR ON MENTOR IS SR WITH PVC, BBB. DUEÑAS CATH TO THE GRAVITY DRAINING YELLOW/CLEAR URINE. NOTED WITH COLOSTOMY BAG ON LLQ, IN PLACE. IV ON LAC #18 AND RAC #20 INTACT/PATENT , FLUSHING WELL. NO INFILTRATION NOTED. SAFETY PERCEPTION IN PLACE, BED IN LOW/LOCKED POSITION, CALL LIGHT WITHIN REACH WILL CONTINUE TO MONITOR.
[2019-08-05 20:00] VITALS: BP 152/67
[2019-08-05] MEDS ORDERED: VANCOMYCIN 0.75 GM in IV D5W 250 ML IV SCH (20:00)
[2019-08-05 21:00] VITALS: BP 152/67
[2019-08-05] MEDS: MEROPENEM 500 MG in IV NS 0.9% 50 ML IV SCH (21:14)
[2019-08-05] MEDS: ENOXAPARIN SODIUM 30 MG/0.3 ML DISP.SYRIN SQ SCH (21:15)
[2019-08-06] VITALS (21 sets, daily range): BP systolic 40–192; BP diastolic 17–96
--- NOTE | 2019-08-06 06:44 | NUR ---
HUB CUTTER CLOSING NOTES PATIENT IN BED SLEEPING, A/O X2. ON HIGH FLOW SATURATING 92%. TOLERATING WELL NO SOB OR ACUTE DISTRESS NOTED AT THIS TIME. HR ON MONITOR IS SR WITH PVC, BBB. DUEÑAS CATH TO THE GRAVITY DRAINING YELLOW/CLEAR URINE. NOTED WITH COLOSTOMY BAG ON LLQ, IN PLACE. IV ON AND RAC #20 INTACT/PATENT , FLUSHING WELL. NO INFILTRATION NOTED. SAFETY PERCEPTION IN PLACE, BED IN LOW/LOCKED POSITION, CALL LIGHT WITHIN REACH. WILL ENDORSE THE PATIENT TO AM RN FOR EMMA.
[2019-08-06 07:16] LABS: BASOPHILS % (AUTO) 0.2 % (0.0-2.0); HEMATOCRIT 33 % (33-45); HEMOGLOBIN 10.8 g/dL (11.5-14.8); LYMPHOCYTES # (AUTO) 1.5 /CMM (0.8-4.8); LYMPHOCYTES % (AUTO) 8.8 % (20.0-44.0); MEAN CORPUSCULAR HGB CONC 33 g/dl (31.0-36.0); MEAN CORPUSCULAR VOLUME 90 fL (82-100); MONOCYTES # (AUTO) 1.2 /CMM (0.1-1.30); MONOCYTES % (AUTO) 7.1 % (2.0-12.0); NEUTROPHILS # (AUTO) 13.9 /CMM (1.8-8.9); NEUTROPHILS % (AUTO) 83.9 % (43.0-81.0); PLATELET COUNT (AUTO) 438 /CMM (150-450); RED BLOOD CELL COUNT(AUTO) 3.62 MIL/uL (4.0-5.2); WHITE BLOOD COUNT (AUTO) 16.6 K/uL (4.3-11.0)
[2019-08-06 07:30] LABS: ALANINE AMINOTRANSFERASE 210 U/L (12-78); ALBUMIN 2.2 g/dL (3.4-5.0); ALKALINE PHOSPHATASE 77 U/L (46-116); ASPARTATE AMINOTRANSFERASE 210 U/L (15-37); BILIRUBIN,TOTAL 0.3 mg/dL (0.2-1.0); CALCIUM, SERUM 8.4 mg/dL (8.5-10.1); CARBON DIOXIDE 21 mmol/L (21-32); CHLORIDE 106 mmol/L (98-107); CREATININE 2.5 mg/dL (0.6-1.3); GLUCOSE 149 mg/dL (74-106); MAGNESIUM 2.3 mg/dL (1.8-2.4); POTASSIUM 3.9 mmol/L (3.5-5.1); SODIUM SERUM 142 mmol/L (136-145); TOTAL PROTEIN, SERUM 6.1 g/dL (6.4-8.2); UREA NITROGEN, BLOOD 66 mg/dL (7-18)
[2019-08-06 08:01] LABS: LYMPHOCYTES % (MANUAL) 13 % (16-48); MONOCYTES % (MANUAL) 7 % (0-11.0); NEUTROPHILS % (MANUAL) 80 (42-76)
--- NOTE | 2019-08-06 08:30 | NUR ---
rn notes patient asleep,easily awaken by verbal stimuli, able to follow command, able to express self. on high flow oxygen placed to nasal cannula but patient saturation on the 80s placed to non rebreather instead. sating on the 80 to 90s at this time. sinus rhythm on the monitor with hr on the 80. no complaints of pain. bilateral upper arm with non pitting edema. iv site on the rac in place, flushes well, dressing clean and intact . patient able to swallow effectively, able to eat food according to diet ordered. cornell catheter in place, draining well to tea colored urine via gravity. HOB elevated. safety measures in place. call light within reach. will continue to monitor patient accordingly
--- NOTE | 2019-08-06 09:00 | NUR ---
rn notes Dr. Pollard on rounds, made aware of the patient's satus. specifically mentioned patient hr on the 120-140since this morning . per the doctor he is aware and have mention about a metropolol order, will check medication list. Dr. Hirsch also made aware of the status, per nicolas LOPES "will put orders". Will wait for the orders
[2019-08-06] MEDS: CLOPIDOGREL BISULFATE 75 MG TABLET PO SCH (09:52)
[2019-08-06] MEDS: NEOMY SULF/BACITRAC ZN/POLY 15 GM TUBE TP SCH ×2 (09:53→18:03)
[2019-08-06] MEDS: MEROPENEM 500 MG in IV NS 0.9% 50 ML IV SCH ×2 (10:36→21:00)
--- NOTE | 2019-08-06 10:50 | NUR ---
rn notes Soon (charge nurse) informed me about her receiving orders from Dr. Al to transfer patient to ICU. order noted and carried out
--- NOTE | 2019-08-06 11:00 | NUR ---
rn notes transferred patient to icu via acls protocol to room 260. report given to EDUARDO Allred. Hands off
[2019-08-06] MEDS: DIGOXIN INJ 0.5 MG/2 ML AMPUL IV SCH ×2 (11:54→18:06)
[2019-08-06] MEDS ORDERED: IV D5/ 0.9% NACL 1,000 ML IV PRN (12:30)
[2019-08-06] MEDS: METOPROLOL TARTRATE INJ 5 MG/5 ML AMPUL IVP PRN ×2 (12:53→21:11)
[2019-08-06 16:15] LABS: ABG BASE EXCESS -6.4 mmol/L; ABG OXYGEN SATURATION 89.6 % (92.0-98.5); ABG PCO2 25.3 mmHg (35.0-45.0); ABG PH 7.431 (7.350-7.450); ABG PO2 62.2 mmHg (75.0-100.0); AaDO2 625.5 mmHg; COHb 0.3 % (0.5-1.5); MetHb 0.3 % (0.0-1.5); O2Hb 89.1 % (94.0-97.0); SITE, ABG Right Brachial; VENT MODE, BG NON REBREATHER+ NC
[2019-08-06] MEDS: IV D5/ 0.9% NACL 1,000 ML IV PRN (18:34)
--- NOTE | 2019-08-06 18:35 | NUR ---
COMPUTER TRAINER PT AWAKE AOX1 STILL ON NON REBRETHER FACE MASK AND 6L NC ORDERED, BED BATH GIVEN NO DISTRESS NOTED ABD INCISION DRESSING CDI NO S/S OF REDNESS NOTED, DUEÑAS PATENT DRAINING URINE STARTED 18G IV L HAND R HAND IV WAS INFILTRATED ONCE ARRIVED FROM JOSE ALFREDO, ALL PT NEEDS MEET REPORT GIVEN TO PM NURSE FOR CONTINUEIYT OF CARE.
--- NOTE | 2019-08-06 19:40 | NUR ---
SANDSTONE INSPECTOR REPAIRER OPENING NOTE, RECEIVED PATIENT IN BED AWAKE, A/OX1-2. ON REBREATHER FACE MASK 6L NS . TOLERATING WELL WITH O2V SATURATION OF 92%. NO SOB OR ACUTE DISTRESS NOTED AT THIS TIME. IV ON RAC #20 AND VISHAL MIDLINE 2WITH D5NS RUNNING AT 70ML/HR. INTACT AND PATENT, NO INFILTRATION NOTED AT THIS TIME. DUEÑAS DRAINING TO THE GRAVITY YELLOW CLEAR URINE. SIDE RAILS UP X2. BED IN LOW LOCKED POSITION CALL LIGHT WITHIN REACH WILL CONTINUE TO MONITOR.
[2019-08-06] MEDS: ENOXAPARIN SODIUM 30 MG/0.3 ML DISP.SYRIN SQ SCH (21:02)
[2019-08-06] MEDS: PANTOPRAZOLE 40 MG VIAL IV SCH (23:12)
[2019-08-07] VITALS (28 sets, daily range): BP systolic 149–195; BP diastolic 55–96
[2019-08-07] MEDS: DIGOXIN INJ 0.5 MG/2 ML AMPUL IV SCH (00:10)
[2019-08-07 03:56] LABS: ABG BASE EXCESS -4.7 mmol/L; ABG OXYGEN SATURATION 89.2 % (92.0-98.5); ABG PCO2 27.9 mmHg (35.0-45.0); ABG PH 7.436 (7.350-7.450); ABG PO2 60.9 mmHg (75.0-100.0); AaDO2 552.2 mmHg; COHb 0.3 % (0.5-1.5); MetHb 0.3 % (0.0-1.5); O2Hb 88.7 % (94.0-97.0); SITE, ABG Right Radial; VENT MODE, BG HIGH FLOW 55L 90%
[2019-08-07 04:42] LABS: ALANINE AMINOTRANSFERASE 187 U/L (12-78); ALBUMIN 2.1 g/dL (3.4-5.0); ALKALINE PHOSPHATASE 74 U/L (46-116); ASPARTATE AMINOTRANSFERASE 144 U/L (15-37); BILIRUBIN,TOTAL 0.3 mg/dL (0.2-1.0); CARBON DIOXIDE 21 mmol/L (21-32); CHLORIDE 109 mmol/L (98-107); CREATININE 1.9 mg/dL (0.6-1.3); GLUCOSE 170 mg/dL (74-106); MAGNESIUM 2.1 mg/dL (1.8-2.4); PHOSPHORUS 4.3 mg/dL (2.5-4.9); POTASSIUM 3.7 mmol/L (3.5-5.1); SODIUM SERUM 143 mmol/L (136-145); TOTAL PROTEIN, SERUM 5.7 g/dL (6.4-8.2); UREA NITROGEN, BLOOD 69 mg/dL (7-18)
[2019-08-07] MEDS: METOPROLOL TARTRATE INJ 5 MG/5 ML AMPUL IVP PRN (05:44)
[2019-08-07] MEDS: IV D5/ 0.9% NACL 1,000 ML IV PRN (06:06)
--- NOTE | 2019-08-07 07:01 | NUR ---
ELECTRIC SHAVER MECHANIC CLOSING NOTE, PATIENT IN BED AWAKE, A/OX1-2. PATIENT IS NO HIGH FLOW NON REBREATHER FACE MASK 5L . TOLERATING WELL WITH O2V SATURATION OF 92-93%. NO SOB OR ACUTE DISTRESS NOTED AT THIS TIME. IV ON RAC #20 AND VISHAL MIDLINE 2WITH D5NS RUNNING AT 70ML/HR. INTACT AND PATENT, NO INFILTRATION NOTED AT THIS TIME. DUEÑAS DRAINING TO THE GRAVITY YELLOW CLEAR URINE. SIDE RAILS UP X2. BED IN LOW LOCKED POSITION CALL LIGHT WITHIN REACH. ENDORSED THE PATIENT TO AM RN FOR EMMA.
[2019-08-07] MEDS: CLOPIDOGREL BISULFATE 75 MG TABLET PO SCH (07:52)
[2019-08-07] MEDS: NEOMY SULF/BACITRAC ZN/POLY 15 GM TUBE TP SCH ×2 (07:53→17:00)
[2019-08-07] MEDS ORDERED: VANCOMYCIN 0.75 GM in IV D5W 250 ML IV SCH (08:00)
--- NOTE | 2019-08-07 08:00 | NUR ---
staff nurse icu resource team received pt in bed ax1 vs stable pt is restless rr 30s sat 90% dr german ordered intubation spoke w/ daughter she also spoke w/ dr. Guallpa regarding intubation,intubation successful at 0830 no distress noted, pt has mid line marbin cdi patent cornell draining urine,vent setting snoted cxr and abg ordered safety measures taken will continue to monitor.
[2019-08-07 08:17] LABS: ABG BASE EXCESS -4.8 mmol/L; ABG OXYGEN SATURATION 86.3 % (92.0-98.5); ABG PH 7.414 (7.350-7.450); ABG PO2 53.7 mmHg (75.0-100.0); AaDO2 629.3 mmHg; COHb 0.3 % (0.5-1.5); MetHb 0.4 % (0.0-1.5); O2Hb 85.7 % (94.0-97.0); SITE, ABG Right Radial
[2019-08-07] MEDS ORDERED: PROPOFOL 100 ML ONE (08:52)
--- NOTE | 2019-08-07 09:23 | NUR ---
RT NOTE: LATE ENTRY-@0913 PATIENT WAS ORALLY INTUBATED BY WITH 7.5 ETT SECURED AT 23CM MID LIP LINE AND PLACED IMMEDIATELY ON MECHANICAL VENT. BILATERAL CHEST RISE NOTED. VENT SETTINGS PER 'S ORDERS. ALARMS SET AND AUDIBLE. VENT PLUGGED INTO RED OUTLET. AMBU BAG AT [facility].
--- NOTE | 2019-08-07 09:30 | NUR ---
agricultural education instructor digoxin level elevated critical notified dr. Priest and Digoxin was discontinued, orders carried out will continue to monitor also notified dr. Servando herbert pt sbp elevated anywhere from 160s-180s md advised to monitor no new changes.
[2019-08-07 12:06] LABS: ABG BASE EXCESS -5.8 mmol/L; ABG OXYGEN SATURATION 98.6 % (92.0-98.5); ABG PCO2 27.7 mmHg (35.0-45.0); ABG PH 7.419 (7.350-7.450); ABG PO2 239.6 mmHg (75.0-100.0); AaDO2 445.7 mmHg; COHb 0.3 % (0.5-1.5); MetHb 0.6 % (0.0-1.5); O2Hb 97.7 % (94.0-97.0); PEEP,BG 10 cm H2O; SITE, ABG Right Radial; VT, ABG 450 mL
[2019-08-07] MEDS: MEROPENEM 500 MG in IV NS 0.9% 50 ML IV SCH ×2 (14:36→21:18)
[2019-08-07] MEDS ORDERED: ROCURONIUM BROMIDE 50 MG/5 ML IV ONE (17:32)
[2019-08-07] MEDS ORDERED: ETOMIDATE 2 MG/ML VIAL IV ONE (17:32)
[2019-08-07] MEDS ORDERED: IV NS 0.9% 250 ML IV PRN (18:30)
--- NOTE | 2019-08-07 18:40 | NUR ---
horticultural farmer pt remain sedated on 5mcg/mg/min seems comfortable bed bath given provided oral care all pt needs meet vs stable throught the shift no distress noted report given to pm nurse for continuity of care.
--- NOTE | 2019-08-07 19:40 | NUR ---
KIDS CLUB ATTENDANT OPENING NOTES. RECEIVED PATIENT INTUBATED, TOLERATING THE VENTILATION SETTING, NO SOB OR ACUTE DISTRESS NOTED AT THIS TIME, PATIENT IS CALM AND RESPONSES TO LIGHT TOUCH, IV ON LAC AND AYANNA MIDLINE FLUSHED AND PATENT, PROPOFOL 5MCG/KG/MIN IS RUNNING. COLOSTOMY BAG INTACT, DARK LIQUID STOOL AND GAS NOTED IN THE COLOSTOMY BAG. FC DRAINING CLEAT YELLOW URIN TO THE GRAVITY. BED IN LOW/LOCKED POSITION. JERAMIE RAILS UPX2. HOP ELEVATED. WILL CONTINUE TO MONITOR THE PATIENT CLOSELY.
[2019-08-07] MEDS: ENOXAPARIN SODIUM 30 MG/0.3 ML DISP.SYRIN SQ SCH (21:20)
[2019-08-07] MEDS: PANTOPRAZOLE 40 MG VIAL IV SCH (23:26)
[2019-08-08] VITALS (25 sets, daily range): BP systolic 120–185; BP diastolic 49–94
[2019-08-08 05:06] LABS: CALCIUM, SERUM 7.7 mg/dL (8.5-10.1); CARBON DIOXIDE 23 mmol/L (21-32); CHLORIDE 113 mmol/L (98-107); CREATININE 1.7 mg/dL (0.6-1.3); GLUCOSE 135 mg/dL (74-106); POTASSIUM 3.3 mmol/L (3.5-5.1); SODIUM SERUM 147 mmol/L (136-145); UREA NITROGEN, BLOOD 68 mg/dL (7-18)
--- NOTE | 2019-08-08 07:05 | NUR ---
TRANSPORTATION ATTENDANT CLOSING NOTES. PATIENT IS INTUBATED, TOLERATING THE VENTILATION SETTING, NO SOB OR ACUTE DISTRESS NOTED AT THIS TIME, PATIENT IS CALM AND RESPONSES TO LIGHT TOUCH, IV ON LAC AND AYANNA MIDLINE FLUSHED AND PATENT, PROPOFOL 5MCG/KG/MIN IS RUNNING, TOLERATING WELL. COLOSTOMY BAG INTACT, DARK LIQUID STOOL AND GAS NOTED IN THE COLOSTOMY BAG. FC DRAINING CLEAT YELLOW URIN TO THE GRAVITY. ALL NEEDS MET DURING INSEAM LEVELER. BED IN LOW/LOCKED POSITION. JERAMIE RAILS UPX2. HOP ELEVATED. ENDORSED THE PATIENT TO AM RN FOR EMMA.
[2019-08-08] MEDS: VANCOMYCIN 0.75 GM in IV D5W 250 ML IV SCH (08:00)
[2019-08-08 08:45] LABS: ABG BASE EXCESS -4.1 mmol/L; ABG OXYGEN SATURATION 98.8 % (92.0-98.5); ABG PCO2 28.5 mmHg (35.0-45.0); ABG PH 7.445 (7.350-7.450); ABG PO2 249.1 mmHg (75.0-100.0); AaDO2 147.4 mmHg; COHb 0.1 % (0.5-1.5); MetHb 0.4 % (0.0-1.5); O2Hb 98.3 % (94.0-97.0); SITE, ABG Right Radial; VENT MODE, BG AC 22 450 +10 60%
[2019-08-08] MEDS: NEOMY SULF/BACITRAC ZN/POLY 15 GM TUBE TP SCH ×2 (09:00→17:00)
--- NOTE | 2019-08-08 09:00 | NUR ---
Sedation Vacation Notes Alan infusing @5mcg/kg/min turned off for daily mental status assessment. Patient opens eyes to touch, makes eye contact, tracks, follows command, PERRLA, finger tank cooper strength equal. Understands questions - asked in Armenian if she was good, she said she was good. Reorientation provided. No agitation. Appears comfortable.
[2019-08-08] MEDS: MEROPENEM 500 MG in IV NS 0.9% 50 ML IV SCH ×2 (09:15→21:09)
[2019-08-08] MEDS: CLOPIDOGREL BISULFATE 75 MG TABLET PO SCH (09:16)
--- NOTE | 2019-08-08 16:34 | NUR ---
RT NOTE: RECEIVED PT ORALLY INTUBATED @ 7.5 ETT SECURED AT 23CM MID LIP LINE. VENT SETTINGS NOTED. ALARMS SET AND AUDIBLE. VENT PLUGGED INTO RED OUTLET. AMBU BAG AT [facility].
--- NOTE | 2019-08-08 17:22 | NUR ---
RETAIL MANAGEMENT TRAINEE - closing Patient is sedated at this time. See sedation vacation notes. Attached to [facility] vent, tolerating settings, FiO2 decreased to 45%, PEEP 5. Tele monitor sinus erik w/ lowest HR 42, BP elevated. L CW pacemaker. NGT+colostomy w/ minimal brown liquid output. Leon draining to gravity. Wound care completed. Edema noted on BUE. Restraints on as patient pulls at lines, no s/s impaired circulation/sensation. NPO status maintained, acid conditioning worker Kianna said she will see patient tomorrow. R AC 20G flushes well, no infiltration noted. AYANNA midline intact. Diprovan infusing @15mcg/kg/min. Brenton soto. Addendum: 08/08/19 at 1746 by JACQUES PENG RN Received call from Dr. New - aware of minimal output from colostomy and no feeding. No new orders received.
[2019-08-08] MEDS: PROPOFOL 100 ML IV PRN (18:24)
[2019-08-08] MEDS: Potassium Chloride 20 MEQ in IV NS 0.9% 1,000 ML IV PRN (18:52)
--- NOTE | 2019-08-08 19:30 | NUR ---
COMMUNICATIONS PROGRAM MANAGER NOTE RECEIVED PATIENT INTUBATED ON DIPRIVAN TOLERATING WELL. ON VENT SETTING TOLERATING WELL ORDERED. BREATHING NORMAL NO SOB NOTED NOTED. NO S/S OF ACUTE DISTRESS NOTED. IV SITE LAC AYANNA MIDLINE PATENT FLUSHED WELL. COLOSTOMY BAG INTACT DARK BROWN LIQUID STOOL NOTED IN THE BAG F/C INTACT YELLOW URINE RUNNING WITH THE GRAVITY. SAFETY MEASURES IN PLACE, SIDE RAILS UP, CALL LIGHT WITHIN REACH. WILL CONT TO MONITOR.
[2019-08-08] MEDS: ENOXAPARIN SODIUM 30 MG/0.3 ML DISP.SYRIN SQ SCH (21:10)
[2019-08-08] MEDS: PANTOPRAZOLE 40 MG VIAL IV SCH (23:14)
[2019-08-09] VITALS (24 sets, daily range): BP systolic 93–179; BP diastolic 46–65
[2019-08-09 04:32] LABS: ALANINE AMINOTRANSFERASE 264 U/L (12-78); ALBUMIN 1.8 g/dL (3.4-5.0); ALKALINE PHOSPHATASE 79 U/L (46-116); ASPARTATE AMINOTRANSFERASE 260 U/L (15-37); BILIRUBIN,TOTAL 0.4 mg/dL (0.2-1.0); CALCIUM, SERUM 7.6 mg/dL (8.5-10.1); CARBON DIOXIDE 21 mmol/L (21-32); CHLORIDE 117 mmol/L (98-107); CREATININE 1.4 mg/dL (0.6-1.3); GLUCOSE 106 mg/dL (74-106); MAGNESIUM 2.2 mg/dL (1.8-2.4); PHOSPHORUS 2.3 mg/dL (2.5-4.9); POTASSIUM 3.3 mmol/L (3.5-5.1); SODIUM SERUM 150 mmol/L (136-145); TOTAL PROTEIN, SERUM 4.9 g/dL (6.4-8.2); UREA NITROGEN, BLOOD 61 mg/dL (7-18)
--- NOTE | 2019-08-09 05:20 | NUR ---
RT NOTE Pt rec'd orally intubated via ETT sz 7.5 secured @ 23cm at the lipline. Pt on [facility] vent on AC mode settings as charted. Pt sx'd for thick mod amt of bloody secretions. Alarms are set and audible. Vent plugged into red outlet. Ambu bag bedside. Will continue to monitor closely. Addendum: 08/09/19 at 0522 by RY JAY RT Amended: Links added.
--- NOTE | 2019-08-09 05:21 | NUR ---
RT NOTE Pt rec'd orally intubated via ETT sz #7.5 secured @ 23cm at the lipline. Pt on [facility] vent on AC mode settings as charted. Pt sx'd for thick mod amt of bloody secretions. Alarms are set and audible. Vent plugged into red outlet. Ambu bag bedside. Will continue to monitor closely. Addendum: 08/09/19 at 0521 by RY JAY RT Amended: Links added.
--- NOTE | 2019-08-09 06:35 | NUR ---
DIRECTOR OF FLIGHT OPERATIONS NOTE PATIENT REMAINS SEDATED AND STABLE THROUGH OUT THE SHIFT. ON VENT SETTING TOLERATING WELL ORDERED. DUE MEDICATIONS WERE GIVEN ORDERED TOLERATED WELL. COLOSTOMY INTACT BROWN LIQUID STOOL REMOVED X2. F/C INTACT YELLOW URINE RUNNING WITH GRAVITY. KEPT CLEAN AND COMFORTABLE, SAFETY MEASURES IN PLACE, CALL LIGHT WITHIN REACH. WILL ENDORSE TO AM NURSE FOR EMMA.
[2019-08-09] MEDS: PROPOFOL 100 ML IV PRN (06:38)
[2019-08-09 06:40] LABS: ABG BASE EXCESS -0.3 mmol/L; ABG OXYGEN SATURATION 98.3 % (92.0-98.5); ABG PH 7.563 (7.350-7.450); ABG PO2 152.7 mmHg (75.0-100.0); AaDO2 140.9 mmHg; MetHb 0.4 % (0.0-1.5); O2Hb 97.9 % (94.0-97.0); SITE, ABG Right Brachial; VENT MODE, BG AC22 VT450 45% +5
--- NOTE | 2019-08-09 07:56 | NUR ---
rn initial notes pt remains sedated on propofol as ordered. remains intubated with vent setting tolerated well.ngt in place; pt remains npo. ivf infusing well. colostomy in place with brownish stool. cornell draining thru gravity. no signs of any distress noted; pt sinus erik on the monitor.safety ensured. will continue to monitor.
[2019-08-09] MEDS ORDERED: POTASSIUM PHOSPHATE MM 15 MMOL in IV NS 0.9% 250 ML IV SCH (08:30)
[2019-08-09] MEDS: VANCOMYCIN 0.75 GM in IV D5W 250 ML IV SCH (08:45)
[2019-08-09] MEDS: NEOMY SULF/BACITRAC ZN/POLY 15 GM TUBE TP SCH ×2 (09:00→16:20)
[2019-08-09] MEDS: MEROPENEM 500 MG in IV NS 0.9% 50 ML IV SCH ×2 (09:35→21:00)
[2019-08-09] MEDS: CLOPIDOGREL BISULFATE 75 MG TABLET PO SCH (09:36)
[2019-08-09] MEDS: Potassium Chloride 20 MEQ in IV NS 0.9% 1,000 ML IV PRN (09:45)
[2019-08-09] MEDS ORDERED: Magnesium 1GM/D5W 100ML PREMIX 100 ML IV SCH (10:24)
[2019-08-09] MEDS: NITROGLYCERIN 30 GM TUBE TP SCH ×2 (10:37→21:04)
[2019-08-09] MEDS: POTASSIUM PHOSPHATE MM 7.5 MMOL in IV NS 0.9% 100 ML IV SCH ×2 (10:38→13:21)
--- NOTE | 2019-08-09 15:55 | NUR ---
RT NOTE Pt rec'd orally intubated via ETT sz #7.5 secured @ 23cm at the lipline. Pt on mech vent on AC mode settings as charted. Pt sx'd for thick mod amt of bloody secretions. Alarms are set and audible. Vent plugged into red outlet. Ambu bag bedside. Will continue to monitor closely.
--- NOTE | 2019-08-09 19:01 | NUR ---
rn closing notes pt with mild agitation, propofol infusing. pt remains npo, ngt in place. repositioned pt during this shift; loc heels kept elevated. sinus erik on the monitor. endorsed to next shift rn in stable condition for continuity of care.
[2019-08-09] MEDS: ENOXAPARIN SODIUM 30 MG/0.3 ML DISP.SYRIN SQ SCH (21:01)
--- NOTE | 2019-08-09 22:00 | NUR ---
RN/ICU- ABDOMINAL WD INCISION DRESSING CHANGE DONE . CLEANSED W/ NS. PAT DRY W/ 4X4. COVERED W/ GAUZE DRESSING AND CLEAR TAPE. NOTED TO HAVE MODERATE AMOUNT OF OLD BLOOD STAINS. INCISION INTACT W/ 16 FÁTIMA. NO SWELLING OR ODOR NOTED. LOOKS PINK AND HEALTHY.PHOTO TAKEN.
[2019-08-09] MEDS: PANTOPRAZOLE 40 MG VIAL IV SCH (22:43)
--- NOTE | 2019-08-09 23:12 | NUR ---
RT NOTE Pt rec'd orally intubated via ETT sz #7.5 secured @ 23cm at the lipline. Pt on [facility] vent on AC mode settings as charted. Pt sx'd for thick SMALL amt of bloody secretions. Alarms are set and audible. Vent plugged into red outlet. Ambu bag bedside. Will continue to monitor closely. Addendum: 08/09/19 at 2313 by RY JAY RT Amended: Links added.
[2019-08-10] VITALS (26 sets, daily range): BP systolic 119–173; BP diastolic 45–118
--- NOTE | 2019-08-10 01:00 | NUR ---
GAVE PATIENT SPOONFUL OF WATER WITHOUT COUGHING OR SOB. WILL ADVANCE DIET TO CLEAR LIQUID AND ENDORSE TO REGULATORY TECHNICIAN.
[2019-08-10] MEDS ORDERED: NOREPINEPHRINE 8 MG in IV NS 0.9% 242 ML IV PRN (02:00)
[2019-08-10] MEDS: PROPOFOL 100 ML IV PRN ×2 (02:33→06:58)
[2019-08-10 05:07] LABS: CREATININE 1.1 mg/dL (0.6-1.3); MAGNESIUM 2.2 mg/dL (1.8-2.4); POTASSIUM 3.9 mmol/L (3.5-5.1)
[2019-08-10] MEDS: Potassium Chloride 20 MEQ in IV D5W 1,000 ML IV PRN ×2 (05:11→18:27)
[2019-08-10 05:22] LABS: CALCIUM, SERUM 7.4 mg/dL (8.5-10.1)
--- NOTE | 2019-08-10 07:53 | NUR ---
SEDATION VACATION INTITATED AT 0715 TITRATING DOWN PROPOFOL PER PROTOCOL. SEE IV SPREADSHEET. PATIENT AT THIS TIME ABLE TO ANSWER SIMPLE QUESTIONS AND IS CALM AND COOPERATIVE. PATIENT TOLERATING SEDATION VACATION AT THIS TIME. WILL CONTINUE TO MONITOR.
[2019-08-10] MEDS ORDERED: DC PROPOFOL WHEN EXTUBATED XX PRN ×2 (08:00→09:00)
[2019-08-10] MEDS: VANCOMYCIN 0.75 GM in IV D5W 250 ML IV SCH (08:15)
[2019-08-10 08:36] LABS: ABG BASE EXCESS -4.7 mmol/L; ABG OXYGEN SATURATION 98.1 % (92.0-98.5); ABG PCO2 24.7 mmHg (35.0-45.0); ABG PH 7.477 (7.350-7.450); AaDO2 155.8 mmHg; COHb 0.2 % (0.5-1.5); MetHb 0.7 % (0.0-1.5); O2Hb 97.2 % (94.0-97.0); PEEP,BG 5 cm H2O; SITE, ABG Right Brachial; VENT MODE, BG SIMV PS 15
--- NOTE | 2019-08-10 08:44 | NUR ---
SPOKE WITH DR. TORRES AT BEDSIDE OF PATIENT WITH ORDERS TO START TUBE FEEDING AFTER NUTRITION CONSULT IF PATIENT CONTINUES TO BE INTUBATED, BUT IF PATIENT IS EXTUBATED ADVANCE FEEDING TOLERATED AFTER SWALLOW EVALUATION.
[2019-08-10] MEDS: CLOPIDOGREL BISULFATE 75 MG TABLET PO SCH (08:59)
[2019-08-10] MEDS: NITROGLYCERIN 30 GM TUBE TP SCH ×2 (08:59→21:02)
--- NOTE | 2019-08-10 09:00 | NUR ---
PATIENT EXTUBATED BY MARIMAR RT AND GENIA RT. PATIENT TOLERATED WELL. PATIENT PLACED ON 4 L NC WITH O2 SAT 98%. WILL CONTINUE TO MONITOR.
[2019-08-10] MEDS: NEOMY SULF/BACITRAC ZN/POLY 15 GM TUBE TP SCH ×2 (09:01→17:36)
[2019-08-10] MEDS: MEROPENEM 500 MG in IV NS 0.9% 50 ML IV SCH ×2 (09:53→21:02)
--- NOTE | 2019-08-10 10:00 | NUR ---
PATIENT GIVEN ICE CHIPS AND TOLERATED WELL WITHOUT COUGHING OR SOB. WILL ADVANCE TO SPOONFUL OF WATER BEFORE ADVANCING DIET.
--- NOTE | 2019-08-10 17:30 | NUR ---
PATIENT TOLERATING CLEAR LIQUID DIET.
[2019-08-10] MEDS: ENSURE CLEAR 237 ML LIQUID (MIX BERRY) PO SCH (18:27)
--- NOTE | 2019-08-10 19:45 | NUR ---
ICU/IT SECURITY SPECIALIST REPORT RECEIVED FROM THE TO DAY NURSE. SEE FLOWSHEET FOR ASSESSMENT, SKIN ISSUES IS ADDRESSED, ALONG WITH INTERVENTION. PT IS ALERT X2 WITH PERIODS OF LETHARGIC. PT IS ON 5 LITERS VIA N/C WITH SATURATION AT 100%. PT TURNED AND REPOSITIONED FOR COMFORT AND CARE. NO ACUTE DISTRESS SEEN AT THIS TIME.
[2019-08-10] MEDS: ENOXAPARIN SODIUM 30 MG/0.3 ML DISP.SYRIN SQ SCH (21:03)
--- NOTE | 2019-08-10 22:00 | NUR ---
ICU/VESSEL CAPTAIN PT WAS GIVEN PM CARE, ALONG WITH ORAL CARE. PT TOLERATED THIS WELL, WITH SATURATION IS 99-100%. PT WAS TURNED AND REPOSITIONED FOR COMFORT AND CARE. WILL CONTINUE TO MONITOR THIS PT.
[2019-08-10] MEDS: PANTOPRAZOLE 40 MG VIAL IV SCH (23:27)
[2019-08-11] VITALS (21 sets, daily range): BP systolic 133–188; BP diastolic 46–70
--- NOTE | 2019-08-11 00:10 | NUR ---
ICU/BUSINESS SUPERVISOR NO ACUTE DISTRESS SEEN AT THIS TIME. PT APPEARS TO BE TOLERATING CURRENT OXYGEN SETTINGS 5 LITERS VIA N/C WITH SATURATION AT 100%WILL CONTINUE TO MONITOR THIS PT.
[2019-08-11] MEDS: METOPROLOL TARTRATE INJ 5 MG/5 ML AMPUL IVP PRN ×2 (01:12→12:19)
[2019-08-11] MEDS: VANCOMYCIN 0.75 GM in IV D5W 250 ML IV SCH ×2 (01:13→20:33)
--- NOTE | 2019-08-11 01:45 | NUR ---
ICU/LEAD SOFTWARE QA ENGINEER PT WAS GIVEN PRN LOPRESSOR 5MG BY CHARGE NURSE FOR BLOOD PRESSURE OF 170/59. WILL CONTINUE TO MONITOR THIS PT'S BLOOD PRESSURE.
--- NOTE | 2019-08-11 04:00 | NUR ---
ICU/TOWN ADMINISTRATOR PT WAS GIVEN AM CARE, ALONG WITH ORAL CARE. PT TOLERATED THIS WELL, WITH SATURATION IS 99-100%. PT WAS TURNED AND REPOSITIONED FOR COMFORT AND CARE. WILL CONTINUE TO MONITOR THIS PT.
--- NOTE | 2019-08-11 05:45 | NUR ---
ICU/POLICE CHIEF AM LABS WERE DONE
[2019-08-11 05:48] LABS: CALCIUM, SERUM 7.4 mg/dL (8.5-10.1); CREATININE 1.1 mg/dL (0.6-1.3); POTASSIUM 4.1 mmol/L (3.5-5.1)
--- NOTE | 2019-08-11 08:11 | NUR ---
RN OPENING NOTES RECEIVED PATIENT RESTING IN BED COMFORTABLY AND AWAKE. PT IS AOX1-2, LIBERIAN SPEAKING, AND IS ON BED REST. SHE IS ON 4L OF OXYGEN VIA NC, TOLERATING WELL NO SOB OR RESP DISTRESS NOTED. TELE MONITOR SHOWING SR. CHEST RISES AND FALLS EVENLY WITH EVERY BREATH. DUEÑAS CATH IS PATENT AND INTACT, COLOSTOMY INTACT. AYANNA MIDLINE PATENT AND INTACT, INFUSING D5W + 20 K AT 80 ML/HR. REDNESS PRESENT AT COCCYX, WILL ADDRESS PER WOUND CARE PLAN. SAFETY MEASURES HAVE BEEN IMPLEMENTED, CALL LIGHT IS WITHIN REACH, BED IS IN LOWEST AND LOCKED POSITION, SIDE RAILS UP X2, WILL CONTINUE TO MONITOR FOR ANY CHANGES.
[2019-08-11] MEDS: ENSURE CLEAR 237 ML LIQUID (MIX BERRY) PO SCH ×2 (08:42→16:58)
[2019-08-11] MEDS: CLOPIDOGREL BISULFATE 75 MG TABLET PO SCH (09:05)
[2019-08-11] MEDS: MEROPENEM 500 MG in IV NS 0.9% 50 ML IV SCH ×2 (09:05→21:51)
[2019-08-11] MEDS: NEOMY SULF/BACITRAC ZN/POLY 15 GM TUBE TP SCH ×2 (09:06→16:58)
[2019-08-11] MEDS: NITROGLYCERIN 30 GM TUBE TP SCH ×2 (09:06→21:46)
[2019-08-11] MEDS: FUROSEMIDE 40 MG/4 ML VIAL IV SCH ×2 (10:40→14:31)
[2019-08-11] MEDS: ACETAMINOPHEN 325 MG TABLET PO PRN (12:13)
--- NOTE | 2019-08-11 15:21 | NUR ---
RN NOTES PT BP HAS BEEN TRENDING HIGH, PRN METOPROLOL GIVEN TO NO EFFECT. DR. TORRES MADE AWARE, RECEIVED ORDER FOR HYDRALAZINE 10 MG IV Q6H, WILL CONTINUE TO MONITOR FOR ANY CHANGES.
[2019-08-11] MEDS: hydrALAZINE HCL IV 20 MG VIAL IV PRN (15:40)
--- NOTE | 2019-08-11 17:30 | NUR ---
RN NOTES RECEIVED PT IN BED, AWAKE AND COMFORTABLE. PT IS AOX 2, NORTH KOREAN SPEAKING, PT IS ON BED REST. PT IS SATURATING WELL ON 4L OF OXYGEN VIA NC, NO SOB NOTED. BREATHING EVEN AND UNLABORED. LEFT CHEST WALL PACE MAKER, DUEÑAS CATHETER INTACT AND PATENT DRAINING TO GRAVITY CLEAR YELLOW URINE OUTPUT. COLOSTOMY BAG AND SURROUNDING SKIN INTACT. AYANNA MIDLINE PATENT AND INTACT, REDNESS PRESENT AT COCCYX, WILL ADDRESS PER WOUND CARE PLAN. LARGE ABDOMINAL WOUND WITH FÁTIMA IN PLACE. +1 BILATERAL LOWER EXTREMITIES EDEMA, PT IS ON MECHANICAL SOFT DIET, SAFETY MEASURES IN PLACE., CALL LIGHT IS WITHIN REACH, BED IN LOWEST LOCKED POSITION, SIDE RAILS UP X2, WILL CONTINUE TO MONITOR FOR ANY CHANGES.
--- NOTE | 2019-08-11 17:55 | NUR ---
RN NOTES PATIENT HAS BEEN TRANSFERRED TO ROOM 306-2, TRANSFER REPORT GIVEN TO IMMPAULAULATE RN
--- NOTE | 2019-08-11 19:08 | NUR ---
MS RN CLOSING NOTES PT IN BED, AWAKE AND COMFORTABLE. CO C/O PAIN AT THIS TIME, PT IS ON BED REST. PT REMAINS STABLE THOUGH UT SHIFT,SAFETY PRECAUTIONS IN PLACE, BED IN LOWEST LOCKED POSITION, SIDE RAILS UP X2, CALL LIGHT IS WITHIN REACH, WILL ENDORSE TO FORKLIFT TECHNICIAN NURSE FOR EMMA
--- NOTE | 2019-08-11 19:30 | NUR ---
TELERN AWAKE, LEFT UPPER ARM MIDLINE FLUSHED, PATENT. STABLE OF THIS TIME, SR ON THE MONITORED. CONTINUED MONITORING.
[2019-08-11] MEDS: ENOXAPARIN SODIUM 30 MG/0.3 ML DISP.SYRIN SQ SCH (21:45)
[2019-08-11] MEDS: PANTOPRAZOLE 40 MG VIAL IV SCH (23:37)
--- NOTE | 2019-08-11 23:49 | NUR ---
TELERN FULLY AWAKE, FINISHING DESSERT, VERY PLEASANT. NO SOB, 02 MAINTAINED VIA NC. ABDOMINAL DRESSING DRY AND INTACT, COLOSTOMY WITH SMALL AMOUNT LIQUID TO SOFT STOOLS. PAIN TOLERABLE FOR NOW.DUEÑAS TO GRAVITY OUTPUT MONITORED. SR ON THE MONITOR, CLOSELY WATCHED.
[2019-08-12 00:01] VITALS: BP 174/66
--- NOTE | 2019-08-12 03:48 | NUR ---
TELERN REMAINS SR ON THE MONITOR, SLEEPING APPEARS COMFORTABLE. 02 MAINTAINED
[2019-08-12 04:24] VITALS: BP_SYST 143; BP_SYST 159; BP_DIAS 62; BP_DIAS 76
--- NOTE | 2019-08-12 06:30 | NUR ---
TELERN BLOOD DRAWN FROM LEFT UPPER MIDLINE. REPOSITIONED, KEPT COMFORTABLE.
[2019-08-12 07:11] LABS: BASOPHILS % (AUTO) 0.3 % (0.0-2.0); EOSINOPHILS % (AUTO) 1.7 % (0.0-6.0); HEMATOCRIT 27 % (33-45); HEMOGLOBIN 8.5 g/dL (11.5-14.8); LYMPHOCYTES # (AUTO) 1.4 /CMM (0.8-4.8); LYMPHOCYTES % (AUTO) 9.6 % (20.0-44.0); MEAN CORPUSCULAR HGB CONC 32 g/dl (31.0-36.0); MEAN CORPUSCULAR VOLUME 91 fL (82-100); MONOCYTES # (AUTO) 0.8 /CMM (0.1-1.30); MONOCYTES % (AUTO) 5.3 % (2.0-12.0); NEUTROPHILS # (AUTO) 11.8 /CMM (1.8-8.9); NEUTROPHILS % (AUTO) 83.1 % (43.0-81.0); PLATELET COUNT (AUTO) 462 /CMM (150-450); RED BLOOD CELL COUNT(AUTO) 2.91 MIL/uL (4.0-5.2); WHITE BLOOD COUNT (AUTO) 14.2 K/uL (4.3-11.0)
[2019-08-12 07:21] LABS: CALCIUM, SERUM 7.7 mg/dL (8.5-10.1); CREATININE 1.1 mg/dL (0.6-1.3); MAGNESIUM 2.1 mg/dL (1.8-2.4); PHOSPHORUS 3.3 mg/dL (2.5-4.9)
--- NOTE | 2019-08-12 07:30 | NUR ---
BARREL COATER NOTES PT IN BED, ASLEEP, EASY TO AROUSE, ALERT TO SELF, NO SIGN OF PAIN OR DISTRESS, CALL LIGHT WITHIN REACH, REPOSITIONED FOR COMFORT, KEPT WARM AND COMFORTABLE IN BED.
[2019-08-12] MEDS: ENSURE CLEAR 237 ML LIQUID (MIX BERRY) PO SCH ×2 (08:00→17:19)
[2019-08-12 08:41] VITALS: BP 160/56
[2019-08-12] MEDS: MEROPENEM 500 MG in IV NS 0.9% 50 ML IV SCH (10:11)
[2019-08-12] MEDS: NEOMY SULF/BACITRAC ZN/POLY 15 GM TUBE TP SCH ×2 (10:11→17:20)
[2019-08-12] MEDS: NITROGLYCERIN 30 GM TUBE TP SCH ×2 (10:12→20:50)
[2019-08-12] MEDS: METOPROLOL TARTRATE 25 MG TABLET PO SCH ×2 (12:36→20:49)
[2019-08-12] MEDS: CLOPIDOGREL BISULFATE 75 MG TABLET PO SCH (12:36)
[2019-08-12] MEDS: PANTOPRAZOLE 40 MG TABLET.DR PO SCH (12:36)
[2019-08-12 15:50] VITALS: BP 143/59
--- NOTE | 2019-08-12 18:48 | NUR ---
TOPPER PACKER NOTES PT IN BED, AWAKE, ALERT AND VERBALLY RESPONSIVE, NO COMPLAINT OF PAIN, NOT IN DISTRESS, ASSISTED WITH DINNER, TOLERATING WELL, ASPIRATION PRECAUTIONS OBSERVED, F/CC DRAINING WELL, CALL LIGHT WITHIN REACH, ALL NEEDS ATTENDED.
--- NOTE | 2019-08-12 19:45 | NUR ---
APRON OPERATOR OPEN NOTES PATIENT IS SLEEPING IN BED. NO COMPLAINTS OF PAIN AT THIS TIME/ APPEARS COMFORTABLE. NO SOB/ ACUTE RESPIRATORY DISTRESS NOTED. CALL LIGHT IS WITHIN REACH. BED IS IN LOWEST LOCKED POSITION, SIDE RAILS UP. WILL CONTINUE TO MONITOR.
[2019-08-12] MEDS: ENOXAPARIN SODIUM 30 MG/0.3 ML DISP.SYRIN SQ SCH (20:58)
[2019-08-12 21:24] VITALS: BP 104/69
--- NOTE | 2019-08-13 07:08 | NUR ---
RN CLOSE NOTES PATIENT LAYING IN BED. CALL LIGHT IS WITHIN REACH. ON 4L NASAL CANULA. BED IS IN LOWEST LOCKED POSITION WITH SIDE RAILS UP. NO COMPLAINTS OF PAIN. NO SOB/ ACUTE RESPIRATORY DISTRESS NOTED. WILL ENDORSE TO AM NURSE.
--- NOTE | 2019-08-13 07:30 | NUR ---
MS/RN NOTE THE PATIENT IS RECEIVED IN BED. PATIENT IS ALERT AND ORIENTED X2. ABLE TO MAKE NEEDS KNOWN VERBALLY. RECEIVING OXYGEN AT 4L/MIN VIA NASAL CANNULA. NO MANIFESTATION FO RESPIRATORY DISTRESS NOTED. DENIES PAIN. DUEÑAS CATH PRESENT AND DRAINING CLEAR, YELLOW COLOR URINE. NO BLADDER DISTENSION NOTED. LEFT UPPER ARM MIDLINE PATENT AND SALINE LOCKED. BED LOW AND LOCKED. SIDE RAILS UP X3. CALL LIGHT WITHIN REACH. WILL CONTINUE TO MONITOR.
[2019-08-13] MEDS: ENSURE CLEAR 237 ML LIQUID (MIX BERRY) PO SCH ×2 (08:00→16:15)
[2019-08-13 08:28] VITALS: BP 146/66
[2019-08-13 08:47] LABS: CALCIUM, SERUM 7.9 mg/dL (8.5-10.1); CREATININE 0.8 mg/dL (0.6-1.3); POTASSIUM 4.2 mmol/L (3.5-5.1)
[2019-08-13] MEDS ORDERED: VANCOMYCIN 0.75 GM in IV D5W 250 ML IV SCH (09:00)
[2019-08-13] MEDS: CLOPIDOGREL BISULFATE 75 MG TABLET PO SCH (10:01)
[2019-08-13] MEDS: PANTOPRAZOLE 40 MG TABLET.DR PO SCH (10:01)
[2019-08-13] MEDS: METOPROLOL TARTRATE 25 MG TABLET PO SCH ×2 (10:01→21:00)
[2019-08-13] MEDS: AMLODIPINE BESYLATE 5 MG TABLET PO SCH (10:01)
[2019-08-13] MEDS: ACETAMINOPHEN 325 MG TABLET PO PRN ×2 (10:05→16:23)
--- NOTE | 2019-08-13 10:05 | NUR ---
MS/RN NOTE THE PATIENT COMPLAINS OF PAIN 2/10 AT THE INCISION SITE (MID ABDOMEN) AND TYLENOL 650 MG PO IS GIVEN WILL CONTINUE TO MONITOR.
[2019-08-13] MEDS: NEOMY SULF/BACITRAC ZN/POLY 15 GM TUBE TP SCH ×2 (10:11→16:16)
[2019-08-13] MEDS: NITROGLYCERIN 30 GM TUBE TP SCH ×2 (10:15→21:00)
--- NOTE | 2019-08-13 11:10 | NUR ---
MS/RN NOTE THE PATIENT VERBALIZED TYLENOL BEING EFFECTIVE AND RATED PAIN 0/10.
[2019-08-13] MEDS: FUROSEMIDE 40 MG/4 ML VIAL IV SCH ×3 (12:29→20:09)
[2019-08-13] MEDS: APIXABAN 2.5 MG TABLET PO SCH ×2 (12:30→16:14)
--- NOTE | 2019-08-13 16:23 | NUR ---
MS/RN NOTE THE PATIENT COMPLAINS OF PAIN AT THE INCISION SITE (MID ABDOMEN) AND TYLENOL 650 MG PO IS GIVEN WILL CONTINUE TO MONITOR.
[2019-08-13 16:54] VITALS: BP 121/46
--- NOTE | 2019-08-13 17:30 | NUR ---
MS/RN NOTE THE PATIENT VERBALIZED TYLENOL BEING EFFECTIVE AND RATED PAIN 0/10.
--- NOTE | 2019-08-13 18:05 | NUR ---
MS/RN NOTE THE PATIENT IS ALERT AND ORIENTED X2. DENIES PAIN. RECEIVING OXYGEN AT 4L/MIN VIA NASAL CANNULA ND SATURATION IS AT 97%. DENIES SOB. RESPIRATION REGULAR AND UNLABORED. PATIENT IN NO APPARENT DISTRESS. LEFT UPPER ARM MIDLINE PATENT AND SALINE LOCKED. MID ABDOMINAL INCISION WITH STAPES INTACT AND COVERED WITH DRY DRESSING. COLOSTOMY BAG IN PLACE AND DRAINING LIQUID BROWN STOOL. BED LOW AND LOCKED. SIDE RAILS UP X3. CALL LIGHT WITHIN REACH. WILL ENDORSE TO BRAZER FURNACE.
--- NOTE | 2019-08-13 19:16 | NUR ---
MS RN NOTES PATIENT RECEIVED IN BED SLEEPING, EASILY AWAKEN BY LIGHT TOUCH AND NAME. ALERT AND ORIENTED X 2. ON NASAL CANNULA 4L, NO SIGNS OF RESPIRATORY DISTRESS, WITH EVEN NON-LABORED BREATHING. IV ACCESS INTACT AND PATENT, LEFT UPPER ARM, MIDLINE. PATIENT DUEÑAS CATHETER IN PLACE, WITH CLEAR YELLOW URIN OUTPUT. COLOSTOMY BAG INTACT AND IN PLACE. ABDOMINAL DRESSING INTACT, CLEAN AND DRY. SAFETY PRECAUTIONS IN PLACE WITH BED IN THE LOWEST POSITION, BILATERAL SIDE RAILS UP, BED LOCKED, BED ALARM ON, AND CALL LIGHT WITHIN EASY REACH OF THE PATIENT. WILL CONTINUE TO MONITOR PATIENT.
[2019-08-13 20:00] VITALS: BP 176/61
--- NOTE | 2019-08-13 21:30 | NUR ---
MS RN NOTES PATIENT'S BLOOD PRESSURE 139/67 HEART RATE 52, CURRENT HEART RATE 48. INFORMED AND NOTIFIED LARRY MIDDLETON AND CHARGE NURSE YARED. HELD MEDICATION METOPROLOL 25mg PO AND NITROGLYCERIN TP. NO NEW ORDERS AT THIS TIME, WILL CONTINUE TO MONITOR PATIENT.
[2019-08-14] MEDS: ACETAMINOPHEN 325 MG TABLET PO PRN (00:14)
--- NOTE | 2019-08-14 00:14 | NUR ---
RN NOTES PATIENT MOANING AND APPEARED TO BE IN PAIN, WHEN ASKED SHE STATES HER PAIN RATING 3/10. PROVIDED COMFORT MEASURES TO PATIENT AND ADMINISTERED PRN ACETAMINOPHEN 650mg PO. VITAL SIGNS 147/56 PULSE 51 RESPIRATORY RATE 18 SPO2 100%. WILL CONTINUE TO MONITOR PATIENT.
[2019-08-14] MEDS: hydrALAZINE HCL IV 20 MG VIAL IV PRN (04:14)
--- NOTE | 2019-08-14 04:14 | NUR ---
MS RN NOTES PATIENT'S BLOOD PRESSURE 175/47 HEART RATE 45. ADMINISTERED PRN IV HYDRALAZINE 0.5mL/10 mg. WILL REASSESS PATIENT BLOOD PRESSURE AND WILL CONTINUE TO MONITOR PATIENT.
[2019-08-14 06:22] LABS: BASOPHILS # (AUTO) 0.1 /CMM (0.0-0.2); BASOPHILS % (AUTO) 1.1 % (0.0-2.0); EOSINOPHILS % (AUTO) 2.5 % (0.0-6.0); HEMATOCRIT 31 % (33-45); HEMOGLOBIN 10.1 g/dL (11.5-14.8); LYMPHOCYTES # (AUTO) 2.3 /CMM (0.8-4.8); LYMPHOCYTES % (AUTO) 19.6 % (20.0-44.0); MEAN CORPUSCULAR HGB CONC 33 g/dl (31.0-36.0); MEAN CORPUSCULAR VOLUME 91 fL (82-100); MONOCYTES # (AUTO) 0.9 /CMM (0.1-1.30); MONOCYTES % (AUTO) 7.3 % (2.0-12.0); NEUTROPHILS # (AUTO) 8.1 /CMM (1.8-8.9); NEUTROPHILS % (AUTO) 69.5 % (43.0-81.0); PLATELET COUNT (AUTO) 536 /CMM (150-450); RED BLOOD CELL COUNT(AUTO) 3.39 MIL/uL (4.0-5.2); WHITE BLOOD COUNT (AUTO) 11.7 K/uL (4.3-11.0)
[2019-08-14 06:30] LABS: ALBUMIN 1.8 g/dL (3.4-5.0); BILIRUBIN,TOTAL 0.3 mg/dL (0.2-1.0); CALCIUM, SERUM 7.8 mg/dL (8.5-10.1); CREATININE 0.9 mg/dL (0.6-1.3); MAGNESIUM 1.8 mg/dL (1.8-2.4); PHOSPHORUS 3.3 mg/dL (2.5-4.9); POTASSIUM 3.4 mmol/L (3.5-5.1); TOTAL PROTEIN, SERUM 5.5 g/dL (6.4-8.2)
--- NOTE | 2019-08-14 07:49 | NUR ---
MS/RN NOTE THE PATIENT IS RECEIVED IN BED. PATIENT IS ALERT AND ORIENTED X2. ABLE TO MAKE NEEDS KNOWN VERBALLY. THE PATIENT IS RECEIVING OXYGEN AT 4L/MIN VIA NASAL CANNULA. DENIES SOB. RESPIRATION REGULAR AND UNLABORED. DENIES PAIN. THE PATIENT IN NO APPARENT DISTRESS. DUEÑAS CATH PRESENT AND NOTED CLEAR, YELLOW COLOR URINE. NO BLADDER DISTENSION NOTED. COLOSTOMY BAG IN PLACE WITH SMALL AMOUNT OF BROWN, LIQUID STOOL. LEFT UPPER ARM MIDLINE PATENT AND SALINE LOCKED. BD LOW AND LOCKED. SIDE RAILS UP X3. CALL LIGHT WITHIN REACH. WILL CONTINUE TO MONITOR.
--- NOTE | 2019-08-14 07:51 | NUR ---
MS RN NOTES PATIENT IN BED SLEEPING, EASILY AWAKEN BY LIGHT TOUCH. ALERT AND ORIENTED X 2. ON NASAL CANNULA 4L, NO SIGNS OF RESPIRATORY DISTRESS, WITH EVEN NON-LABORED BREATHING. IV ACCESS INTACT AND PATENT, LEFT UPPER ARM, MIDLINE. PATIENT DUEÑAS CATHETER IN PLACE, WITH CLEAR YELLOW URIN OUTPUT. COLOSTOMY BAG INTACT AND IN PLACE. ABDOMINAL DRESSING INTACT, CLEAN AND DRY. SKIN KEPT CLEAN AND DRY, MET ALL OF PATIENT NEEDS. SAFETY PRECAUTIONS IN PLACE WITH BED IN THE LOWEST POSITION, BILATERAL SIDE RAILS UP, BED LOCKED, BED ALARM ON, AND CALL LIGHT WITHIN EASY REACH OF THE PATIENT. WILL ENDORSE PLAN OF CARE TO UPCOMING DAYSHIFT NURSE.
[2019-08-14 08:00] VITALS: BP 173/59
[2019-08-14] MEDS: ENSURE CLEAR 237 ML LIQUID (MIX BERRY) PO SCH ×2 (08:00→17:00)
[2019-08-14] MEDS: CLOPIDOGREL BISULFATE 75 MG TABLET PO SCH (10:28)
[2019-08-14] MEDS: APIXABAN 2.5 MG TABLET PO SCH ×2 (10:28→16:46)
[2019-08-14] MEDS: PANTOPRAZOLE 40 MG TABLET.DR PO SCH (10:28)
[2019-08-14] MEDS: AMLODIPINE BESYLATE 5 MG TABLET PO SCH (10:29)
[2019-08-14] MEDS: METOPROLOL TARTRATE 25 MG TABLET PO SCH (10:30)
[2019-08-14] MEDS: NEOMY SULF/BACITRAC ZN/POLY 15 GM TUBE TP SCH ×2 (10:34→16:47)
[2019-08-14] MEDS: NITROGLYCERIN 30 GM TUBE TP SCH (10:36)
[2019-08-14] MEDS ORDERED: hydrALAZINE HCL 50 MG TABLET PO SCH (11:00)
[2019-08-14] MEDS ORDERED: POTASSIUM CHLORIDE 20 MEQ POWDER PACKET PO SCH (11:00)
[2019-08-14 11:05] VITALS: BP 151/57
[2019-08-14 12:02] VITALS: BP 152/47
[2019-08-14] MEDS: POTASSIUM CHLORIDE 20 MEQ POWDER PACKET PO SCH ×2 (12:02→13:14)
[2019-08-14] MEDS: FUROSEMIDE 40 MG/4 ML VIAL IV SCH ×3 (12:02→19:00)
--- NOTE | 2019-08-14 12:02 | NUR ---
MS/RN NOTE BLOOR PRESSURE 152/47, PULSE 58. GAVE ORDERED LASIX. WILL CONTINUE TO MONITOR.
[2019-08-14] MEDS ORDERED: FURO-145 PO (13:04)
[2019-08-14] MEDS ORDERED: PANT40TA2 PO (13:04)
[2019-08-14] MEDS ORDERED: APIX2.5T PO (13:04)
[2019-08-14] MEDS ORDERED: HYDR-4077 PO (13:04)
[2019-08-14 13:18] VITALS: BP 143/43
[2019-08-14] MEDS: hydrALAZINE HCL 50 MG TABLET PO SCH ×2 (13:18→16:46)
--- NOTE | 2019-08-14 13:18 | NUR ---
MS/RN NOTE BLOOD PRESSURE 143/43, PULSE 59. ADMINISTERED ORDERED APRESOLINE 50 MG PO. WILL CONTINUE TO MONITOR.
--- NOTE | 2019-08-14 16:00 | NUR ---
MS/RN NOTE REMOVED DUEÑAS CATH PER DR COLLAZO.
[2019-08-14 16:46] VITALS: BP 135/62
--- NOTE | 2019-08-14 17:00 | NUR ---
MS/RN NOTE PATIENT DESATURATED TO 86 % ON ROOM AIR AT REST. PLACED THE PATIENT ON 4L OXYGEN VIA NASAL CANNULA.
--- NOTE | 2019-08-14 17:21 | NUR ---
MS/RN NOTE NOTED THAT THE PATIENT URINATED IN HER DIAPER. NO BLADDER DISTENSION NOTED.
--- NOTE | 2019-08-14 17:22 | NUR ---
MS/RN NOTE THE PATIENT ALERT AND ORIENTED X4. DENIES PAIN. RESPIRATION REGULAR ND UNLABORED. DENIES SOB. THE PATIENT IS RECEIVING OXYGEN AT 4L/MIN VIA NASAL CANNULA AND SATURATION IS AT 98%. LEFT UPPER ARM MIDLINE REMOVED PER DR COLLAZO. NO MISSING PIECE NOTED. DISCHARGE EDUCATION GIVEN TO DAUGHTER. THE PATIENT LEFT THE HOSPITAL IN STABLE CONDITION VIA AMBULANCE.
--- NOTE | 2019-08-14 19:29 | NUR ---
MS/RN NOTE THE PATIENT IN BED. ALERT AND ORIENTED X2. RECEIVING OXYGEN AT 4L/MIN VIA NASAL CANNULA. RESPIRATION REGULAR AND UNLABORED. DENIES SOB. DENIES PAIN. BED LOW AND LOCKED. SIDE RAILS UP X3. CALL LIGHT WITHIN REACH. WILL ENDORSE OT MARKETING MGR.
--- NOTE | 2019-08-14 19:58 | NUR ---
MS RN NOTES PATIENT IN BED, ASLEEP. ALERT AND ORIENTED X 2. BREATHING EVEN AND UNLABORED ON NC 4L. SHOWS NO SIGNS OF ACUTE RESPIRATORY DISTRESS, NO ACUTE PAIN. SAFETY PRECAUTIONS IN PLACE. BED IN LOWEST POSITION, LOCKED, AND CALL LIGHT KEPT WITHIN REACH. WILL CONTINUE TO MONITOR.
== END 2019-08-14 22:00 | disposition home health service (06) | DRG 329 ==
LOC: ER 21:29 → TELE 23:59 → ICU 07-31 21:17 → MED 08-02 10:15 → TELE 08-02 10:32 → MED 08-04 11:21 → TELE-TD 08-04 21:32 → ICU 08-06 11:04 → TELE 08-11 17:18 → MED 08-12 22:46 → UNDODISIN 08-14 17:25
PROVIDERS: ADMIT Internal Medicine; ATTEND Nurse Practitioner Acute Care
PROC: 0DTN0ZZ Resection of Sigmoid Colon, Open Approach (ICD-10-PCS; principal; 2019-07-30)
PROC: 0D1M0Z4 Bypass Descending Colon to Cutaneous, Open Approach (ICD-10-PCS; 2019-07-30)
PROC: 5A1935Z Respiratory Ventilation, Less than 24 Consecutive Hours (ICD-10-PCS; 2019-07-31)
PROC: 0DJD8ZZ Inspection of Lower Intestinal Tract, Via Natural or Artificial Opening Endoscopic (ICD-10-PCS; 2019-07-31)
PROC: 0BH17EZ Insertion of Endotracheal Airway into Trachea, Via Natural or Artificial Opening (ICD-10-PCS; 2019-07-31)
PROC: 05HY33Z Insertion of Infusion Device into Upper Vein, Percutaneous Approach (ICD-10-PCS; 2019-08-06)
PROC: 5A1945Z Respiratory Ventilation, 24-96 Consecutive Hours (ICD-10-PCS; 2019-08-07)
PROC: 0BH17EZ Insertion of Endotracheal Airway into Trachea, Via Natural or Artificial Opening (ICD-10-PCS; 2019-08-07)
DX: K56.2 Volvulus (principal); N17.0 Acute kidney failure with tubular necrosis; G93.41 Metabolic encephalopathy; J96.01 Acute respiratory failure with hypoxia; J18.9 Pneumonia, unspecified organism; I50.23 Acute on chronic systolic (congestive) heart failure; N39.0 Urinary tract infection, site not specified; J98.11 Atelectasis; D62 Acute posthemorrhagic anemia; D68.59 Other primary thrombophilia; E87.1 Hypo-osmolality and hyponatremia; E87.0 Hyperosmolality and hypernatremia; R18.8 Other ascites; J90 Pleural effusion, not elsewhere classified; K59.00 Constipation, unspecified; E03.9 Hypothyroidism, unspecified; I11.0 Hypertensive heart disease with heart failure; G30.9 Alzheimer's disease, unspecified; F02.80 Dementia in other diseases classified elsewhere, unspecified severity, without behavioral disturbance, psychotic disturbance, mood disturbance, and anxiety; E11.9 Type 2 diabetes mellitus without complications; I25.10 Atherosclerotic heart disease of native coronary artery without angina pectoris; I48.91 Unspecified atrial fibrillation; Z95.0 Presence of cardiac pacemaker; E78.5 Hyperlipidemia, unspecified; F32.9 Major depressive disorder, single episode, unspecified; E78.00 Pure hypercholesterolemia, unspecified; I70.0 Atherosclerosis of aorta; Z79.899 Other long term (current) drug therapy; F41.9 Anxiety disorder, unspecified; N28.1 Cyst of kidney, acquired; Z79.02 Long term (current) use of antithrombotics/antiplatelets; M85.80 Other specified disorders of bone density and structure, unspecified site; Y95 Nosocomial condition; Z66 Do not resuscitate; I25.2 Old myocardial infarction; E86.1 Hypovolemia; Z79.82 Long term (current) use of aspirin; K21.9 Gastro-esophageal reflux disease without esophagitis; Z79.01 Long term (current) use of anticoagulants; F09 Unspecified mental disorder due to known physiological condition; E83.39 Other disorders of phosphorus metabolism; E87.6 Hypokalemia; T50.8X5A Adverse effect of diagnostic agents, initial encounter; Y92.9 Unspecified place or not applicable
CPT/HCPCS: 31720; 36415; 36600; 71045-TC; 74018; 76700-TC; 76705-TC; 80048-TC; 80053-TC; 80061-TC; 80076-TC; 80162-TC; 80202-TC; 81000-TC; 82803-TC; 82962-TC; 83605-TC; 83690-TC; 83735-TC; 84100-TC; 84443-TC; 85025-TC; 86850-TC; 87040-TC; 87070-TC; 87081-TC; 87086-TC; 88307-TC; 93307-TC; 94002-TC; 94003-TC; 94799-TC; 97110-TC; 97530-TC; 99082-TC; A4216; A4217; A6253; A6403; C9113; G0378; J0282; J0330; J0360; J0690; J0696; J0744; J1160; J1644; J1650; J1940; J2185; J2250; J2270; J2405; J2704; J2765; J3010; J3370; J3480; J3490; J7030; J7042; J7050; J7060; J7070; J7120; Q9967

== ENCOUNTER 2019-08-20 14:57 | Inpatient (IN) | payer MEDICARE, OTHER ==
[~2019-08-20] VITALS: Ht 152.4 cm; Wt 49.4 kg
[~2019-08-20 14:57] MED LIST changes: +APIX2.5T PO; -ASPI-1152 PO; -BACL10TA PO; +CLOP75TA15 PO; +DONE5TAB7 PO; -DULO60CA45 PO; -EZET10TA16 PO; +FURO-145 PO; +HYDR-4077 PO; -MEMA21CA PO; +PANT40TA2 PO; -ZOLP5TAB2 PO
--- NOTE | 2019-08-20 15:10 | NUR ---
pt bibra from home to er bed 08. per ems report, c/o "abdominal pain." pt discharged last 08/14/19 s/p bowel obstruction. 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 pt gowned and placed on monitor. awaiting md graves.
--- NOTE | 2019-08-20 15:12 | NUR ---
dr baldwin at bedside for eval.
--- NOTE | 2019-08-20 15:16 | NUR ---
pt placed on 6L/min via nasal canula.
--- NOTE | 2019-08-20 15:18 | NUR ---
radiology at bedside for chest xray.
[2019-08-20 16:03] LABS: BASOPHILS # (AUTO) 0.1 /CMM (0.0-0.2); BASOPHILS % (AUTO) 0.5 % (0.0-2.0); EOSINOPHILS % (AUTO) 0.1 % (0.0-6.0); HEMATOCRIT 24 % (33-45); HEMOGLOBIN 7.7 g/dL (11.5-14.8); LYMPHOCYTES # (AUTO) 0.5 /CMM (0.8-4.8); LYMPHOCYTES % (AUTO) 3.5 % (20.0-44.0); MEAN CORPUSCULAR HGB CONC 32 g/dl (31.0-36.0); MEAN CORPUSCULAR VOLUME 92 fL (82-100); MONOCYTES # (AUTO) 0.6 /CMM (0.1-1.30); MONOCYTES % (AUTO) 4.1 % (2.0-12.0); NEUTROPHILS # (AUTO) 12.9 /CMM (1.8-8.9); NEUTROPHILS % (AUTO) 91.8 % (43.0-81.0); PLATELET COUNT (AUTO) 498 /CMM (150-450); RED BLOOD CELL COUNT(AUTO) 2.63 MIL/uL (4.0-5.2); WHITE BLOOD COUNT (AUTO) 14.1 K/uL (4.3-11.0)
[2019-08-20 16:06] LABS: APPEARANCE,URINE Slightly Cloudy (CLEAR); BILIRUBIN,URINE SMALL (NEGATIVE); BLOOD, URINE Negative Ery/uL (NEGATIVE); COLOR,URINE Yellow (YELLOW); KETONES,URINE 15 (NEGATIVE); LEUKOCYTE ESTERASE ,URINE Negative (NEGATIVE); NITRITE, URINE Negative (NEGATIVE); PROTEIN,URINE 100 mg/dl (NEGATIVE); UGLUCOSE Negative (NEGATIVE); UROBILINOGEN,URINE 0.2 EU/dL (0.2)
[2019-08-20 16:09] LABS: CALCIUM, SERUM 8.4 mg/dL (8.5-10.1); CARBON DIOXIDE 21 mmol/L (21-32); CHLORIDE 106 mmol/L (98-107); CREATININE 1.1 mg/dL (0.6-1.3); GLUCOSE 97 mg/dL (74-106); POTASSIUM 4.4 mmol/L (3.5-5.1); SODIUM SERUM 141 mmol/L (136-145); UREA NITROGEN, BLOOD 29 mg/dL (7-18)
[2019-08-20 16:18] LABS: ALANINE AMINOTRANSFERASE 57 U/L (12-78); ALBUMIN 2.1 g/dL (3.4-5.0); ALKALINE PHOSPHATASE 104 U/L (46-116); ASPARTATE AMINOTRANSFERASE 34 U/L (15-37); BILIRUBIN,DIRECT 0.1 mg/dL (0.0-0.2); BILIRUBIN,TOTAL 0.3 mg/dL (0.2-1.0); TOTAL PROTEIN, SERUM 6.2 g/dL (6.4-8.2)
[2019-08-20 16:21] LABS: ABG BASE EXCESS -6.2 mmol/L; ABG OXYGEN SATURATION 93.6 % (92.0-98.5); ABG PCO2 28.2 mmHg (35.0-45.0); ABG PH 7.411 (7.350-7.450); ABG PO2 71.1 mmHg (75.0-100.0); AaDO2 109.7 mmHg; COHb 0.3 % (0.5-1.5); MetHb 0.5 % (0.0-1.5); O2Hb 92.9 % (94.0-97.0); SITE, ABG Right Radial; VENT MODE, BG NC 3L
[2019-08-20 16:22] LABS: BACTERIA,URINE Few /HPF (None Seen); RBC,URINE 0-2 /HPF (0-2); SQUAMOUS EPITHELIAL CELL,UR Many /HPF (None Seen)
[2019-08-20 16:23] LABS: URINE AMORPHOUS URATE Moderate /HPF (None Seen)
[2019-08-20] MEDS ORDERED: MEROPENEM 1,000 MG in IV NS 0.9% 100 ML IV ONE (16:30)
[2019-08-20] MEDS ORDERED: VANCOMYCIN 1 GM in IV D5W 250 ML IV ONE (16:30)
--- NOTE | 2019-08-20 16:47 | NUR ---
dr nicolasa crespo aware of current B/P. no new order at this time.
--- NOTE | 2019-08-20 17:19 | NUR ---
sariah villela called and left contact # [phone]
--- NOTE | 2019-08-20 17:23 | NUR ---
pt to radiology for abdominal ct scan via [facility].
--- NOTE | 2019-08-20 18:02 | NUR ---
picc line nurse at bedside
--- NOTE | 2019-08-20 18:23 | NUR ---
PICC LINE INSERTED ON L UPPER ARM W/ 3 LUMEN. CHEST XRAY ORDERED FOR PICC LINE PLACEMENT
--- NOTE | 2019-08-20 18:49 | NUR ---
dr baldwin made aware of pt's high systolic b/p. w/ new verbal order. will carry out.
[2019-08-20] MEDS ORDERED: hydrALAZINE HCL IV 20 MG VIAL ONE (18:52)
--- NOTE | 2019-08-20 18:55 | NUR ---
hydralazine 10mg given ivp per ermmalathi baldwin verbal order.
--- NOTE | 2019-08-20 19:16 | NUR ---
vital sign updated. ermd baldwin aware.
--- NOTE | 2019-08-20 19:20 | NUR ---
report to cnc machinist 2nd shift nurse vicki rn for rusty.
[2019-08-20] MEDS ORDERED: hydrALAZINE HCL IV 20 MG VIAL IV ONE (19:30)
--- NOTE | 2019-08-20 19:42 | NUR ---
TOOK OVER PT CARE. PT PALCED ON 4L NC, SAT 98%, ON MONITOR AND PULSE OX. VSS. AWAITING ICU ROOM FOR TRANSFER.
--- NOTE | 2019-08-20 20:48 | NUR ---
[facility] ASSIGNMENT 328-2
[2019-08-20] MEDS ORDERED: IV NS 0.9% 1,000 ML IV PRN ×2 (21:02→23:19)
--- NOTE | 2019-08-20 21:07 | NUR ---
REPORT GIVEN TO JOSE CLARK FOR EMMA
--- NOTE | 2019-08-20 21:17 | NUR ---
PT TRANSFERED PER ACLS PROTOCOL.
[2019-08-20 21:20] VITALS: BP 166/63
--- NOTE | 2019-08-20 21:20 | NUR ---
TELE/RN NEW ADMISSION NOTES RECEIVED PATIENT IS A 84 YO MALAWIAN EMIRATI SPEAKING FROM HOME, DAUGHTER BROUGHT HER MOM DUE TO SEVERE ABDOMINAL PAIN AND AT ER HAD DESATURATION OF 70% ON ROOM AIR. PATIENT WITH DX OF ACUTE RESPIRATORY FAILURE AND ACUTE PNS, PREVIOUS HOSPITALIZATION RECORD LAST 07/29 WITH SMALL BOWEL OBSTRUCTION, UPON INITIAL ASSESSMENT, PATIENT WITH ELEVATED SBP OF 166/63 PULSE 67 ON TELE. TROPONIN LEVEL ELEVATED. ADMITTING MD VALE. MEDICATION HOME LIST RECONCILED RECEIVED ORDER. ASSES HEAD TO TOE AND WITH SACRAL REDNESS AND SKIN TEAR, BUE AND BLE EDEMA, AYANNA PICC LINE AND RIGHT HAND IV PERIPHERAL GAUGE 20. NO BELONGINGS. WITH MULTIPLE MEDICAL HX OF DM, ACUTE PNA, DEMENTIA, HTN, PSYCH, ANXIETY, WITH PACE MAKER.ON COLOSTOMY.
[2019-08-20] MEDS ORDERED: ACETAMINOPHEN 325 MG TABLET PO PRN (21:30)
[2019-08-20] MEDS ORDERED: ONDANSETRON HCL/PF 4 MG/2 ML VIAL IVP PRN (21:30)
[2019-08-20] MEDS: DONEPEZIL 5 MG TABLET PO SCH (22:27)
--- NOTE | 2019-08-20 22:30 | NUR ---
MADE AWARE REGARDING LAB CRITICAL TROPONIN LEVEL REPORTED BY RANJIT OF 0.954 MD MADE AWARE PREVIOUS TROPONIN LEVEL WAS 0.373 WITH NO NEW ORDER. EXCEPT TO CHECK OCCULT STOOL FECAL. ALSO NEW ORDER RECEIVED FOR ELEVATED SBP OVER 150 WITH PRN HYDRALAZINE 25 MG PO NEEDED AND TO LOWE IV FLUID RATE FROM 75 ML TO 60 ML.
[2019-08-20] MEDS ORDERED: hydrALAZINE HCL 25 MG TABLET PO PRN (23:30)
[2019-08-21] VITALS (9 sets, daily range): BP systolic 145–186; BP diastolic 52–95
[2019-08-21 03:26] LABS: BASOPHILS # (AUTO) 0.1 /CMM (0.0-0.2); BASOPHILS % (AUTO) 1.3 % (0.0-2.0); EOSINOPHILS % (AUTO) 0.7 % (0.0-6.0); HEMATOCRIT 27 % (33-45); HEMOGLOBIN 9.1 g/dL (11.5-14.8); LYMPHOCYTES # (AUTO) 1.1 /CMM (0.8-4.8); LYMPHOCYTES % (AUTO) 10.1 % (20.0-44.0); MEAN CORPUSCULAR HGB CONC 33 g/dl (31.0-36.0); MEAN CORPUSCULAR VOLUME 90 fL (82-100); MONOCYTES # (AUTO) 0.6 /CMM (0.1-1.30); MONOCYTES % (AUTO) 5.5 % (2.0-12.0); NEUTROPHILS # (AUTO) 9.1 /CMM (1.8-8.9); NEUTROPHILS % (AUTO) 82.4 % (43.0-81.0); PLATELET COUNT (AUTO) 438 /CMM (150-450); RED BLOOD CELL COUNT(AUTO) 3.03 MIL/uL (4.0-5.2); WHITE BLOOD COUNT (AUTO) 11.1 K/uL (4.3-11.0)
--- NOTE | 2019-08-21 03:33 | NUR ---
TELE/RN NOTES PATIENT REPORTED UNABLE TO VOID, BLADDER DISTENDED, WITH BLADDER RETENTION OF 223 ML. MD DONALD MADE AWARE, AWAITING FOR ORDER. PATIENT ON BED REST, UNABLE TO URINATE ON HER OWN.
[2019-08-21 03:40] LABS: ALANINE AMINOTRANSFERASE 51 U/L (12-78); ALBUMIN 2.1 g/dL (3.4-5.0); ALKALINE PHOSPHATASE 95 U/L (46-116); BILIRUBIN,TOTAL 0.3 mg/dL (0.2-1.0); CALCIUM, SERUM 8.3 mg/dL (8.5-10.1); CARBON DIOXIDE 23 mmol/L (21-32); CHLORIDE 105 mmol/L (98-107); CREATININE 0.9 mg/dL (0.6-1.3); GLUCOSE 100 mg/dL (74-106); IRON, SERUM 11 ug/dl (50-175); PHOSPHORUS 3.7 mg/dL (2.5-4.9); POTASSIUM 4.3 mmol/L (3.5-5.1); SODIUM SERUM 141 mmol/L (136-145); TOTAL IRON BINDING CAPACITY 160 ug/dl (250-450); TOTAL PROTEIN, SERUM 5.8 g/dL (6.4-8.2); UREA NITROGEN, BLOOD 27 mg/dL (7-18)
[2019-08-21 03:48] LABS: CHOLESTEROL 207 mg/dL (<200); HDL CHOLESTEROL 51 mg/dL (40-60); LDL 133 mg/dL (0-99); TRIGLYCERIDES 89 mg/dL (30-150)
[2019-08-21] MEDS: CEFEPIME 2 GM in IV D5W 100 ML IV SCH ×2 (04:01→16:35)
[2019-08-21 04:20] LABS: ASPARTATE AMINOTRANSFERASE 33 U/L (15-37)
--- NOTE | 2019-08-21 04:36 | NUR ---
TELE/RN NOTES PATIENT WITH BLADDER RETENTION OF 264 ML EVEN AFTER VOID/ MD ORDER RECEIVED AND CARRIED OUT. TO INSERT DUEÑAS FOR BLADDER RETENTION CONCERNS.
[2019-08-21] MEDS ORDERED: CEFEPIME 2 GM in IV D5W 100 ML IV SCH ×4 (05:00)
--- NOTE | 2019-08-21 06:15 | NUR ---
328-2 TELE/RN CLOSING NOTES PATIENT SLEPT FEW HOURS, KEPT WARM AND COMFORTABLE, ATTENDED TO ALL NEEDS, RESPIRATIONS EVEN AND UNLABORED ON OXYGEN VIA NC AT 4L SATURATION AT 97%, CONTACTED FOR ANY CRITICAL LAB LEVEL, AND INFORMED REGARDING RETENTION OF BLADDER EVEN AFTER VOIDING. ON IV THERAPY, MONITORING FOR ANY CHANGES.BED LOCKED, CALL LIGHTS WITHIN REACH, WILL ENDORSE TO AM RN FOR EMMA.
[2019-08-21 07:12] LABS: OCCULT BLOOD STOOL POSITIVE (NEGATIVE)
[2019-08-21] MEDS ORDERED: hydrALAZINE HCL 25 MG TABLET PO PRN (08:25)
--- NOTE | 2019-08-21 08:39 | NUR ---
WOUND CARE CONSULT: PT PRESENTS WITH GENERALIZED EDEMA, CLOSED ABDOMINAL INCISION WITH FÁTIMA, OSTOMY WITH POUCH INTACT, SACRAL UNSTAGEABLE ULCER WITH SURROUNDING INTACT DEEP TISSUE INJURY AND BLANCHABLE REDNESS TO BILATERAL MEDIAL FEET, ALL PRESENT ON ADMISSION. RECOMMEND SURGICAL CONSULT. DR DAVISON NOTIFIED OF CONSULT REQUEST. DISCUSSED WITH NURSING STAFF AND CIGAR MAKER. RECOMMENDATIONS FOR SKIN PROTECTION DISCUSSED WITH NURSING STAFF. [place] ISOFLEX LOW AIRLOSS BED TO BE PLACED. WILL SEE PRN. LOPES IN AGREEMENT WITH PLAN OF CARE. Addendum: 08/21/19 at 0841 by JIA BARRETT WNDNU Amended: Links added.
[2019-08-21] MEDS: AMLODIPINE BESYLATE 5 MG TABLET PO SCH (08:59)
[2019-08-21] MEDS: hydrALAZINE HCL 50 MG TABLET PO SCH ×3 (08:59→16:35)
[2019-08-21] MEDS: VALSARTAN 80 MG TABLET PO SCH (08:59)
[2019-08-21] MEDS ORDERED: FUROSEMIDE 20 MG TABLET PO SCH (09:00)
[2019-08-21] MEDS: CLOPIDOGREL BISULFATE 75 MG TABLET PO SCH (09:00)
[2019-08-21] MEDS: APIXABAN 2.5 MG TABLET PO SCH ×2 (09:04→16:37)
[2019-08-21] MEDS: METOPROLOL SUCCINATE 25 MG TAB.SR.24H PO SCH (09:05)
[2019-08-21] MEDS: PANTOPRAZOLE 40 MG TABLET.DR PO SCH (09:07)
[2019-08-21] MEDS: FUROSEMIDE 40 MG/4 ML VIAL IV SCH ×3 (10:16→17:08)
[2019-08-21 11:13] LABS: C-REACTIVE PROTEIN 23.2 mg/dL (0.0-0.9)
[2019-08-21] MEDS ORDERED: ACETAMINOPHEN 650 MG/20.3 ML UDC NG PRN (11:30)
--- NOTE | 2019-08-21 12:00 | NUR ---
Swab for COVID -19 done and sent to lab
--- NOTE | 2019-08-21 12:00 | NUR ---
Droplet precautions initiated.
[2019-08-21] MEDS: ACETAMINOPHEN 650 MG/20.3 ML UDC PO PRN (12:23)
[2019-08-21] MEDS: THERAHONEY GEL 1.5 OZ TUBE TP SCH (14:22)
[2019-08-21] MEDS: SOD FERRIC GLUC 125 MG in IV NS 0.9% 100 ML IV SCH (14:22)
[2019-08-21] MEDS: NYSTATIN TOP POWDER 15 GM BOTTLE TP SCH ×2 (14:22→16:47)
--- NOTE | 2019-08-21 15:31 | NUR ---
SW CONSULT SW consult was requested by MACHINE ROOM OPERATOR due to the pt coming from home with a pressure ulcer. Pt is a 84 year old female. Pt appears to be alert and oriented x3 (place, self and situation). Pt appears to be in a euthymic mood and presents with a distressed affect. Pt stated that she is ambulatory but the SW was not able to observe this. SW asked the pt about her home situation but the pt was confused and could not understand the question. SW called the pts daughter, Shaylee ([phone]), who stated that the pt was just discharged one week ago and that the pt will return to her home with [facility]. SW informed upper caser, Breana, who stated that she will follow up with the hospice to see why they readmitted her to the hospital since she was discharged the previous time with that hospice.
--- NOTE | 2019-08-21 19:29 | NUR ---
Report given to Stacie CLARK for EMMA.
--- NOTE | 2019-08-21 19:50 | NUR ---
RN OPENING NOTES RECEIVED REPORT FROM [facility] EDU[facility]O LEMUS. FOUND Pt RESTING IN BED. NO S/S OF ACUTE DISTRESS OR SOB NOTED. Pt AROUSABLE TO NAME AND TOUCH. Pt IS A/OX1-2, CONFUSED, BUT IS VERBAL, SPEAKS MAINLY URUGUAYAN BUT CAN UNDERSTAND SOME ESTONIAN. ON TELE MONITOR, WITH TELE READING SR 60s. COLOSTOMY BAG ON LLQ OF ABD, AND DUEÑAS CATHETER IN PLACE. MEPILEX COVERING ABD'L FÁTIMA, NO SIGNS OF BLEEDING NOTED. IV ACCESS ON AYANNA PICCLINE & RHAND #20G, SL. SAFETY MEASURES IN PLACE. BED LOW, LOCKED, HOB ELEVATED, SIDE RAILS UP, CALL LIGHT AND BEDSIDE TABLE WITHIN REACH. WILL CONTINUE TO MONITOR Pt's CONDITION AND SAFETY THROUGHOUT THE NIGHT.
--- NOTE | 2019-08-21 20:30 | NUR ---
RN NOTES SPOKE WITH Pt's DAUGHTER JESUS ON THE PHONE. RECEIVED VERBAL CONSENT FROM DAUGHTER FOR Pt TO RECEIVE SACRAL DEBRIDEMENT. 2ND RN WITNESS WAS BHARTI.
[2019-08-21] MEDS: ATORVASTATIN 10 MG TABLET PO SCH (21:52)
[2019-08-21] MEDS: DONEPEZIL 5 MG TABLET PO SCH (21:52)
[2019-08-22] VITALS (7 sets, daily range): BP systolic 152–186; BP diastolic 48–80
[2019-08-22] MEDS: ACETAMINOPHEN 650 MG/20.3 ML UDC PO PRN ×2 (04:54→20:05)
[2019-08-22] MEDS: CEFEPIME 2 GM in IV D5W 100 ML IV SCH ×2 (04:58→16:56)
--- NOTE | 2019-08-22 06:35 | NUR ---
RN CLOSING NOTES NO OTHER SIGNIFICANT CHANGES IN Pt's CONDITION. ALL NEEDS MET AND ATTENDED TO. Pt RESTING COMFORTABLY IN BED. NO S/S OF ACUTE DISTRESS OR SOB NOTED DURING THE NIGHT. SAFETY MEASURES IN PLACE. BED LOW, LOCKED, HOB ELEVATED, SIDE RAILS UP, CALL LIGHT AND BEDSIDE TABLE WITHIN REACH. WILL ENDORSE TO DAYSHIFT RN FOR Pt's EMMA.
--- NOTE | 2019-08-22 07:30 | NUR ---
MS/RN Opening note Patient received from maintenance supervisor 2nd shift. A/O X2, appears comfortable, in no distress or pain. Tele reading NSR, heart rate 62. Picc line to left upper arm flushing well with normal saline. Safety measures in place, bed in low setting, side rails X3 in upright position, call light within reach. Patient remains on isolation for rule out COVID. First swab -ve.
[2019-08-22 07:59] LABS: BASOPHILS # (AUTO) 0.1 /CMM (0.0-0.2); BASOPHILS % (AUTO) 0.9 % (0.0-2.0); EOSINOPHILS % (AUTO) 3.2 % (0.0-6.0); HEMATOCRIT 27 % (33-45); MEAN CORPUSCULAR HGB CONC 33 g/dl (31.0-36.0); MEAN CORPUSCULAR VOLUME 89 fL (82-100); MONOCYTES # (AUTO) 0.5 /CMM (0.1-1.30); MONOCYTES % (AUTO) 7.6 % (2.0-12.0); NEUTROPHILS # (AUTO) 5.2 /CMM (1.8-8.9); NEUTROPHILS % (AUTO) 74.3 % (43.0-81.0); PLATELET COUNT (AUTO) 430 /CMM (150-450); RED BLOOD CELL COUNT(AUTO) 3.08 MIL/uL (4.0-5.2)
--- NOTE | 2019-08-22 08:00 | NUR ---
MS/RN Blood pressure Blood pressure now 155/56
[2019-08-22 08:23] LABS: ALBUMIN 1.9 g/dL (3.4-5.0); BILIRUBIN,TOTAL 0.2 mg/dL (0.2-1.0); CALCIUM, SERUM 8.2 mg/dL (8.5-10.1); CREATININE 1.1 mg/dL (0.6-1.3); MAGNESIUM 1.9 mg/dL (1.8-2.4); PHOSPHORUS 3.2 mg/dL (2.5-4.9); POTASSIUM 3.3 mmol/L (3.5-5.1); TOTAL PROTEIN, SERUM 5.6 g/dL (6.4-8.2)
[2019-08-22] MEDS: METOPROLOL SUCCINATE 25 MG TAB.SR.24H PO SCH (08:36)
[2019-08-22] MEDS: PANTOPRAZOLE 40 MG TABLET.DR PO SCH (08:36)
[2019-08-22] MEDS: CLOPIDOGREL BISULFATE 75 MG TABLET PO SCH (08:36)
[2019-08-22] MEDS: VALSARTAN 80 MG TABLET PO SCH (08:36)
[2019-08-22] MEDS: AMLODIPINE BESYLATE 5 MG TABLET PO SCH (08:37)
[2019-08-22] MEDS: hydrALAZINE HCL 50 MG TABLET PO SCH ×3 (08:37→16:56)
[2019-08-22] MEDS: APIXABAN 2.5 MG TABLET PO SCH ×2 (08:38→17:02)
[2019-08-22] MEDS: NYSTATIN TOP POWDER 15 GM BOTTLE TP SCH ×2 (08:49→17:08)
[2019-08-22] MEDS: THERAHONEY GEL 1.5 OZ TUBE TP SCH (08:50)
--- NOTE | 2019-08-22 09:11 | NUR ---
MS/RN Medications Morning medications administered as ordered, crushed with apple sauce.
--- NOTE | 2019-08-22 09:15 | NUR ---
MS/RN Labs Morning labs reviewed: -WBC 7.0 -H&H - 01/12 -K+ - 3.3 CXR shows pulmonary congestion.
[2019-08-22] MEDS: NITROGLYCERIN 30 GM TUBE TP SCH ×2 (09:30→21:41)
[2019-08-22] MEDS: POTASSIUM CL. PREMIX PERIPHER. 50 ML IV SCH ×2 (09:44→10:34)
--- NOTE | 2019-08-22 11:29 | NUR ---
MS/RN Dr New Order given by Dr New to removal every other staple today and the cele remaining in three days. Incision site to be painted with iodine.
[2019-08-22] MEDS ORDERED: LIDOCAINE 1%-EPI 1:100,000 20 ML VIAL TP ONE (12:30)
[2019-08-22] MEDS ORDERED: SILVER NITRATE APPLICATOR 1 EA BOX TP SCH (12:30)
[2019-08-22] MEDS: SOD FERRIC GLUC 125 MG in IV NS 0.9% 100 ML IV SCH (13:57)
--- NOTE | 2019-08-22 14:15 | NUR ---
MS/RN S/B Wound care Seen by wound care - bedside debridement of sacral wound by Maeve PABON.
[2019-08-22] MEDS ORDERED: FEE PK DOSING 1 MIN EA MC ONE ×2 (14:35→14:36)
[2019-08-22] MEDS: VANCOMYCIN 1 GM in IV D5W 250 ML IV SCH (15:31)
--- NOTE | 2019-08-22 18:21 | NUR ---
MS/RN End note Continue to wait for result of second COVID swab, patient remains on isolation until resulted. Vancomycin started, first dose administered, no reaction seen. Vanco trough scheduled for 08/23 at 2p. Daughter decided after speaking with Radha Huang SOCIAL MEDIA EXECUTIVE to change code status to DNR, but intubation okay. Has been turned and repositioned every 2-3 hours throughout the day to prevent further skin breakdown, heel off loaded on pillows. Assisted with all meals, medications crushed with apple sauce. Will endorse to automotive parts counterperson.
[2019-08-22] MEDS ORDERED: HYDROGEL DRESSING 90 GM TUBE TP SCH (19:00)
--- NOTE | 2019-08-22 20:00 | NUR ---
RN NOTES RECEIVED PT. AWAKE ON BED, A/OX2-3 F/C DRAINING CLEAR YELLOW URINE, COLOSTOMY IN PLACE, SR ON TELE MONITOR, HR-67, COMPLAINED OF SLIGHT PAIN AND ASKING FOR TYLENOL , TYLENOL 650MG PO GIVEN ORDERED, NOT IN DISTRESS, NO PAIN, NOTED, SIDERAILSUPX2, CONTINUE TO MONITOR
[2019-08-22] MEDS: ATORVASTATIN 10 MG TABLET PO SCH (21:38)
[2019-08-22] MEDS: DONEPEZIL 5 MG TABLET PO SCH (21:38)
[2019-08-22] MEDS: HYDROGEL DRESSING 90 GM TUBE TP SCH (21:41)
[2019-08-23] VITALS (7 sets, daily range): BP systolic 140–169; BP diastolic 50–80
[2019-08-23] MEDS: CEFEPIME 2 GM in IV D5W 100 ML IV SCH ×2 (04:25→17:26)
--- NOTE | 2019-08-23 05:00 | NUR ---
RN NOTES COMPLAINED OF MILD PAOIN AND ASKING FOR TYLENOL, TYLENOL 650MG PO GIVEN ORDERED
[2019-08-23] MEDS: ACETAMINOPHEN 650 MG/20.3 ML UDC PO PRN ×2 (05:04→20:06)
--- NOTE | 2019-08-23 06:29 | NUR ---
RN NOTES AWAKE, MORNING CARE , NOT IN DISTRESS, COLOSTOMY BAG IN PLACE, CALL LIGHT WITHIN REACH, ALEXAILSUPX2, PT. NEEDS ATTENDED
[2019-08-23 08:02] LABS: BASOPHILS # (AUTO) 0.1 /CMM (0.0-0.2); EOSINOPHILS % (AUTO) 2.1 % (0.0-6.0); HEMATOCRIT 26 % (33-45); HEMOGLOBIN 8.5 g/dL (11.5-14.8); LYMPHOCYTES # (AUTO) 0.9 /CMM (0.8-4.8); LYMPHOCYTES % (AUTO) 12.4 % (20.0-44.0); MEAN CORPUSCULAR HGB CONC 32 g/dl (31.0-36.0); MEAN CORPUSCULAR VOLUME 90 fL (82-100); MONOCYTES # (AUTO) 0.6 /CMM (0.1-1.30); MONOCYTES % (AUTO) 8.8 % (2.0-12.0); NEUTROPHILS # (AUTO) 5.4 /CMM (1.8-8.9); NEUTROPHILS % (AUTO) 75.7 % (43.0-81.0); PLATELET COUNT (AUTO) 409 /CMM (150-450); RED BLOOD CELL COUNT(AUTO) 2.92 MIL/uL (4.0-5.2); WHITE BLOOD COUNT (AUTO) 7.2 K/uL (4.3-11.0)
[2019-08-23] MEDS ORDERED: HYDROCODONE/APAP 5/325MG 1 EACH TABLET PO ONE (08:30)
[2019-08-23] MEDS: PANTOPRAZOLE 40 MG TABLET.DR PO SCH (08:36)
[2019-08-23] MEDS: CLOPIDOGREL BISULFATE 75 MG TABLET PO SCH (08:37)
[2019-08-23] MEDS: APIXABAN 2.5 MG TABLET PO SCH ×2 (08:38→16:16)
[2019-08-23 08:39] LABS: CALCIUM, SERUM 7.7 mg/dL (8.5-10.1); CREATININE 1.3 mg/dL (0.6-1.3); MAGNESIUM 1.7 mg/dL (1.8-2.4); PHOSPHORUS 2.5 mg/dL (2.5-4.9); POTASSIUM 3.5 mmol/L (3.5-5.1)
[2019-08-23] MEDS: NITROGLYCERIN 30 GM TUBE TP SCH ×2 (08:52→23:02)
[2019-08-23] MEDS: THERAHONEY GEL 1.5 OZ TUBE TP SCH (08:54)
[2019-08-23] MEDS: Z GUARD REMEDY 2 OZ OINT TP PRN (08:54)
[2019-08-23] MEDS: HYDROGEL DRESSING 90 GM TUBE TP SCH (08:55)
[2019-08-23] MEDS: NYSTATIN TOP POWDER 15 GM BOTTLE TP SCH ×2 (08:55→17:26)
[2019-08-23] MEDS: hydrALAZINE HCL 50 MG TABLET PO SCH ×3 (09:00→16:16)
[2019-08-23] MEDS: VALSARTAN 80 MG TABLET PO SCH (09:00)
[2019-08-23] MEDS: METOPROLOL SUCCINATE 25 MG TAB.SR.24H PO SCH (09:00)
[2019-08-23] MEDS: AMLODIPINE BESYLATE 5 MG TABLET PO SCH (09:00)
[2019-08-23] MEDS: Magnesium 1GM/D5W 100ML PREMIX 100 ML IV SCH ×2 (10:48→11:44)
[2019-08-23] MEDS ORDERED: POTASSIUM CHLORIDE 20 MEQ TAB.PRT.SR PO SCH (11:00)
[2019-08-23] MEDS: SOD FERRIC GLUC 125 MG in IV NS 0.9% 100 ML IV SCH (14:52)
[2019-08-23] MEDS: VANCOMYCIN 1 GM in IV D5W 250 ML IV SCH (15:28)
--- NOTE | 2019-08-23 20:14 | NUR ---
MS/RN OPENING NOTES: RECEIVED PT. AWAKE ON BED, A/OX2. ON 3 L OF OXYGEN VIA NC. NO SOB NOTED. NO S/S OF DISTRESS. F/C DRAINING CLEAR YELLOW URINE, COLOSTOMY IN PLACE, COMPLAINED OF SLIGHT PAIN AND ASKING FOR TYLENOL. PER DAY SHIFT NURSE AMERICA, ENDORSED TYLENOL 650MG TO BE GIVEN AFTER EXCHANGE OF SHIFT. RN AMERICA HANDED TYLENOL 650MG TO BE GIVEN. ASSESSED PT. PT IS IN PAIN SAYING "HELP ME PLS, NEED HELP". TYLENOL 650MG PO GIVEN ORDERED, NOT IN DISTRESS NOTED, SIDERAILS UPX2, CALL LIGHT WITHIN REACH. WILL CONTINUE TO MONITOR
[2019-08-23] MEDS: DONEPEZIL 5 MG TABLET PO SCH (23:02)
[2019-08-23] MEDS: ATORVASTATIN 10 MG TABLET PO SCH (23:02)
[2019-08-24] VITALS: BP 140/58
[2019-08-24] MEDS: CEFEPIME 2 GM in IV D5W 100 ML IV SCH ×2 (04:15→17:30)
--- NOTE | 2019-08-24 06:59 | NUR ---
MS/RN CLOSING NOTES: PT. SLEEPING IN BED, REMAINS A/OX2. ON 3 L OF OXYGEN VIA NC. NO SOB NOTED. NO S/S OF DISTRESS. F/C DRAINING CLEAR YELLOW URINE, COLOSTOMY IN PLACE. WOUND TREATMENT DONE. NO C/O PAIN AT THSI TIME. ALL NURSING NEEDS RENDERED AND MET. SAFETY MEASURES IN PLACE. BED IN LOW, LOCKED POSITION. JERAMIE ERAILS UPX2, CALL LIGHT WITHIN REACH. WILL CONTINUE TO MONITOR
[2019-08-24 07:28] LABS: BASOPHILS # (AUTO) 0.1 /CMM (0.0-0.2); BASOPHILS % (AUTO) 1.1 % (0.0-2.0); EOSINOPHILS % (AUTO) 2.1 % (0.0-6.0); HEMATOCRIT 27 % (33-45); LYMPHOCYTES # (AUTO) 0.9 /CMM (0.8-4.8); LYMPHOCYTES % (AUTO) 12.1 % (20.0-44.0); MEAN CORPUSCULAR HGB CONC 33 g/dl (31.0-36.0); MEAN CORPUSCULAR VOLUME 90 fL (82-100); MONOCYTES # (AUTO) 0.6 /CMM (0.1-1.30); MONOCYTES % (AUTO) 8.6 % (2.0-12.0); NEUTROPHILS # (AUTO) 5.7 /CMM (1.8-8.9); NEUTROPHILS % (AUTO) 76.1 % (43.0-81.0); PLATELET COUNT (AUTO) 424 /CMM (150-450); RED BLOOD CELL COUNT(AUTO) 3.06 MIL/uL (4.0-5.2); WHITE BLOOD COUNT (AUTO) 7.4 K/uL (4.3-11.0)
[2019-08-24 07:43] LABS: CALCIUM, SERUM 7.8 mg/dL (8.5-10.1); CREATININE 1.1 mg/dL (0.6-1.3); MAGNESIUM 2.3 mg/dL (1.8-2.4); PHOSPHORUS 2.4 mg/dL (2.5-4.9); POTASSIUM 3.5 mmol/L (3.5-5.1)
[2019-08-24 08:00] VITALS: BP 176/54
--- NOTE | 2019-08-24 08:00 | NUR ---
MS/RN OPENING NOTES: RECEIVED PT. AWAKE ON BED, A/OX2. ON 3L OF OXYGEN VIA NC. NO SOB NOTED. NO S/S OF PAIN OR DISTRESS. F/C DRAINING CLEAR YELLOW URINE, COLOSTOMY IN PLACE, WITH VERY POOR APPETITE.REFUSED BREAKFAST INSPITE OF ENCOURAGEMENT AND OFFERING SNACKS. SIDERAILS UPX2, CALL LIGHT WITHIN REACH. WILL CONTINUE TO MONITOR
[2019-08-24] MEDS ORDERED: NYST15PO4 TP ×2 (09:06→11:15)
[2019-08-24] MEDS ORDERED: HYDR-4384 PO (09:06)
[2019-08-24] MEDS ORDERED: HYDR-4077 PO (09:06)
[2019-08-24] MEDS ORDERED: LEVO500T75 PO (09:06)
[2019-08-24] MEDS ORDERED: FERR325T23 PO (09:06)
[2019-08-24] MEDS: hydrALAZINE HCL 50 MG TABLET PO SCH ×3 (09:14→18:02)
[2019-08-24] MEDS: METOPROLOL SUCCINATE 25 MG TAB.SR.24H PO SCH (09:14)
[2019-08-24] MEDS: VALSARTAN 80 MG TABLET PO SCH (09:14)
[2019-08-24] MEDS: CLOPIDOGREL BISULFATE 75 MG TABLET PO SCH (09:15)
[2019-08-24] MEDS: AMLODIPINE BESYLATE 5 MG TABLET PO SCH (09:15)
[2019-08-24] MEDS: PANTOPRAZOLE 40 MG TABLET.DR PO SCH (09:15)
[2019-08-24] MEDS: APIXABAN 2.5 MG TABLET PO SCH ×2 (09:16→18:03)
[2019-08-24] MEDS: NITROGLYCERIN 30 GM TUBE TP SCH ×2 (09:20→21:43)
[2019-08-24] MEDS: Z GUARD REMEDY 2 OZ OINT TP PRN (09:51)
[2019-08-24] MEDS: HYDROGEL DRESSING 90 GM TUBE TP SCH (09:51)
[2019-08-24] MEDS: THERAHONEY GEL 1.5 OZ TUBE TP SCH (09:52)
[2019-08-24] MEDS: NYSTATIN TOP POWDER 15 GM BOTTLE TP SCH ×2 (10:23→18:05)
[2019-08-24] MEDS ORDERED: K PHOS NEUTRAL 250 MG TABLET PO ONE (11:30)
[2019-08-24] MEDS: VANCOMYCIN 1 GM in IV D5W 250 ML IV SCH (15:00)
[2019-08-24] MEDS: SOD FERRIC GLUC 125 MG in IV NS 0.9% 100 ML IV SCH (15:03)
--- NOTE | 2019-08-24 15:26 | NUR ---
HELD VANCO IV -PT'S VANCO LEVEL IS 23. NOTIFIED,WENDIE,PHARMACIST.
[2019-08-24 16:00] VITALS: BP 131/60
--- NOTE | 2019-08-24 19:31 | NUR ---
PT HARDLY ATE DINNER.NO S/S OF PAIN OR DISTRESS.TURNED AND REPOSITIONED EVERY TWO HRS. CALL LIGHT PLACED WITHIN REACH.
[2019-08-24 20:00] VITALS: BP 145/59
--- NOTE | 2019-08-24 20:00 | NUR ---
RN NOTES ALERT AND ORIENTED X2, STABLE ON 3LPM VIA NC, PALE, NOT IN APPARENT DISTRESS, COLOSTOMY DRAINING WITH BROWN, LIQUID STOOL, MID ABDOMEN INCISION SITE DRY AND CLEAN, FÁTIMA INTACT, DUEÑAS CATHETER DRAINING WELL
[2019-08-24] MEDS: DONEPEZIL 5 MG TABLET PO SCH (21:40)
[2019-08-25] MEDS: CEFEPIME 2 GM in IV D5W 100 ML IV SCH ×2 (04:25→16:51)
--- NOTE | 2019-08-25 06:53 | NUR ---
RN NOTES ALERT AND AWAKE, 3LPM VIA NC, DUEÑAS CATHETER DRAINING WELL, COLOSTOMY WITH BROWN AND LIQUID STOOL, SURGICAL SITE WITH FÁTIMA, CLEAN AND INTACT, DR. ROME WILL REMOVE FÁTIMA TODAY.
[2019-08-25 08:00] VITALS: BP 158/60
--- NOTE | 2019-08-25 08:00 | NUR ---
MS/RN OPENING NOTES: RECEIVED PT. AWAKE ON BED, A/OX2. ON ROOM AIR WITH NO SOB NOTED. NO S/S OF SOB,PAIN OR DISTRESS. F/C DRAINING CLEAR YELLOW URINE, COLOSTOMY IN PLACE, WITH VERY POOR APPETITE.REFUSED BREAKFAST INSPITE OF ENCOURAGEMENT AND SNACKS OFFERED. SIDERAILS UPX2, CALL LIGHT WITHIN REACH. WILL CONTINUE TO MONITOR
[2019-08-25] MEDS: VANCOMYCIN 0.75 GM in IV D5W 250 ML IV SCH (09:13)
[2019-08-25] MEDS: VALSARTAN 80 MG TABLET PO SCH (09:14)
[2019-08-25] MEDS: AMLODIPINE BESYLATE 5 MG TABLET PO SCH (09:25)
[2019-08-25] MEDS: hydrALAZINE HCL 50 MG TABLET PO SCH ×3 (09:25→16:56)
[2019-08-25] MEDS: METOPROLOL SUCCINATE 25 MG TAB.SR.24H PO SCH (09:26)
[2019-08-25] MEDS: PANTOPRAZOLE 40 MG TABLET.DR PO SCH (09:26)
[2019-08-25] MEDS: THERAHONEY GEL 1.5 OZ TUBE TP SCH (09:27)
[2019-08-25] MEDS: NYSTATIN TOP POWDER 15 GM BOTTLE TP SCH ×2 (09:27→17:27)
[2019-08-25] MEDS: HYDROGEL DRESSING 90 GM TUBE TP SCH (09:27)
[2019-08-25] MEDS: CLOPIDOGREL BISULFATE 75 MG TABLET PO SCH (09:30)
[2019-08-25] MEDS: APIXABAN 2.5 MG TABLET PO SCH ×2 (09:30→16:56)
[2019-08-25] MEDS: NITROGLYCERIN 30 GM TUBE TP SCH ×2 (09:38→21:21)
[2019-08-25 10:30] LABS: CALCIUM, SERUM 8.1 mg/dL (8.5-10.1); CREATININE 1.3 mg/dL (0.6-1.3); PHOSPHORUS 4.1 mg/dL (2.5-4.9); POTASSIUM 4.1 mmol/L (3.5-5.1)
[2019-08-25] MEDS: SOD FERRIC GLUC 125 MG in IV NS 0.9% 100 ML IV SCH (14:30)
--- NOTE | 2019-08-25 15:44 | NUR ---
REMOVED PT'S ABDOMINAL SURGICAL SITE FÁTIMA(13) WITH NO BLEEDING ,NO S/S OF INFECTION OR REDNESS ON THE SITE.PT TOLERATED WELL.PT LOVES TO DRINK WATER AND FREQUENTLY OFFERED WATER WITH HOB ELEVATED.CONSUMED 2 CUPS IN 2 HRS.
--- NOTE | 2019-08-25 15:47 | NUR ---
PAINTED BETADINE ON THE ABDOMINAL SURGICAL SITE.
[2019-08-25 16:00] VITALS: BP 146/52
[2019-08-25] MEDS: ENSURE ENLIVE 237 ML LIQUID (VANILLA) PO SCH (17:26)
[2019-08-25 20:00] VITALS: BP 134/54
--- NOTE | 2019-08-25 20:04 | NUR ---
RN NOTES PATIENT ASLEEP, EASILY AROUSEABLE, PALE, ON 3LPM VIA NC, NOT IN APPARENT DISTRESS, COLOSTOMY WITH BROWN AND LIQUID STOOL, DUEÑAS CATHETER DRAINING WITH YELLOW URINE, WILL CONTINUE TO MONITOR.
[2019-08-25] MEDS: DONEPEZIL 5 MG TABLET PO SCH (21:15)
[2019-08-26] MEDS: CEFEPIME 2 GM in IV D5W 100 ML IV SCH ×2 (04:38→16:08)
--- NOTE | 2019-08-26 06:56 | NUR ---
RN NOTES ALERT AND AWAKE, 3LPM VIA NC, CONFUSED AT TIMES, NO APPETITE, DRINKS SIPS OF WATER FREQUENTLY, MID ABDOMEN INCISION SITE FÁTIMA REMOVED, INTACT, NO DRAINAGE, COLOSTOMY DRAINING WITH BROWNISH LIQUID STOOL, DUEÑAS CATHETER DRAINING WELL, FOR HOSPICE CARE UPON DISCHARGE TO HOME, AWAITING MEDICAL BED DELIVERY AT HOME BEFORE DISCHARGE.
--- NOTE | 2019-08-26 07:35 | NUR ---
MS RN OPENING NOTES RECEIVED PT IN BED, ASLEEP, EASILY AROUSED, A/O X2. PT ON SUPPLEMENTARY OXYGEN AT 2LPM VIA NC, WITH NO ACUTE RESPIRATORY DISTRESS NOTED. PT DENIES ANY PAIN OR DISCOMFORT AT THIS TIME. PT DENIES ANY CONCERNS OR QUESTIONS AT THIS TIME. PICC LINE TO AYANNA, FLUSHED WITH NS, INTACT AND OPERATIONAL. PT KEPT COMFORTABLE IN BED. CALL LIGHT KEPT WITHIN REACH. PT'S BED IN LOWEST, LOCKED POSITION WITH SR X3. WILL CONTINUE PLAN OF CARE.
[2019-08-26 08:00] VITALS: BP 153/66
[2019-08-26] MEDS: AMLODIPINE BESYLATE 5 MG TABLET PO SCH (09:28)
[2019-08-26] MEDS: APIXABAN 2.5 MG TABLET PO SCH ×2 (09:29→16:29)
[2019-08-26] MEDS: CLOPIDOGREL BISULFATE 75 MG TABLET PO SCH (09:29)
[2019-08-26] MEDS: PANTOPRAZOLE 40 MG TABLET.DR PO SCH (09:29)
[2019-08-26] MEDS: hydrALAZINE HCL 50 MG TABLET PO SCH ×3 (09:30→16:29)
[2019-08-26] MEDS: METOPROLOL SUCCINATE 25 MG TAB.SR.24H PO SCH (09:30)
[2019-08-26] MEDS: VALSARTAN 80 MG TABLET PO SCH (09:30)
[2019-08-26] MEDS: NITROGLYCERIN 30 GM TUBE TP SCH ×2 (09:31→21:18)
[2019-08-26] MEDS: ENSURE ENLIVE 237 ML LIQUID (VANILLA) PO SCH ×2 (09:31→16:30)
[2019-08-26] MEDS: HYDROGEL DRESSING 90 GM TUBE TP SCH (09:39)
[2019-08-26] MEDS: NYSTATIN TOP POWDER 15 GM BOTTLE TP SCH ×2 (09:39→16:30)
[2019-08-26] MEDS: THERAHONEY GEL 1.5 OZ TUBE TP SCH (09:40)
[2019-08-26] MEDS: VANCOMYCIN 0.75 GM in IV D5W 250 ML IV SCH (10:11)
[2019-08-26 11:14] LABS: CALCIUM, SERUM 7.8 mg/dL (8.5-10.1); CARBON DIOXIDE 21 mmol/L (21-32); CHLORIDE 103 mmol/L (98-107); CREATININE 1.6 mg/dL (0.6-1.3); GLUCOSE 196 mg/dL (74-106); POTASSIUM 3.3 mmol/L (3.5-5.1); SODIUM SERUM 136 mmol/L (136-145); UREA NITROGEN, BLOOD 42 mg/dL (7-18)
[2019-08-26] MEDS ORDERED: POTASSIUM CHLORIDE 20 MEQ TAB.PRT.SR PO ONE (13:00)
--- NOTE | 2019-08-26 13:45 | NUR ---
MS RN NOTES SPOKE TO THE DAUGHTER VIA PHONE MADE AWARE REGARDING POOR APPETITE OF THE PT AND GAVE UPDATES.
[2019-08-26 16:00] VITALS: BP 155/68
--- NOTE | 2019-08-26 18:34 | NUR ---
MS RN CLOSING NOTES PT REMAINS IN BED, ASLEEP, EASILY AROUSED, A/O X2. PT ON SUPPLEMENTARY OXYGEN AT 2LPM VIA NC, WITH NO ACUTE RESPIRATORY DISTRESS NOTED. PT DENIES ANY PAIN OR DISCOMFORT AT THIS TIME. PICC LINE TO AYANNA, FLUSHED WITH NS, INTACT AND OPERATIONAL. COLOSTOMY IN PLACE WITH 50ML OUTPUT. FC IN PLACE WITH 150ML YELLOWISH URINE OUTPUT. PT HAS POOR APPETITE, FAMILY AWARE. PT KEPT COMFORTABLE IN BED. ALL NEEDS AND CARE ATTENDED AND PROVIDED. CALL LIGHT KEPT WITHIN REACH. PT'S BED IN LOWEST, LOCKED POSITION WITH SR X3. WILL ENDORSE TO INCOMING NIGHT NURSE FOR EMMA.
[2019-08-26 20:00] VITALS: BP 118/75
[2019-08-26] MEDS: DONEPEZIL 5 MG TABLET PO SCH (21:28)
[2019-08-27] MEDS: CEFEPIME 2 GM in IV D5W 100 ML IV SCH ×2 (05:29→17:14)
--- NOTE | 2019-08-27 06:39 | NUR ---
MS RN NOTES PT AWAKE. STILL CONFUSED. NOT IN ANY DISTRESS. NO SOB NOTED. NO S/SX OF ANY PAIN OR DISCOMFORT AT THIS TIME. WITH AYANNA PICC LINE PATENT & INTACT. AM CARE DONE. MONITORED ACCORDINGLY. CALL LIGHT WITHIN REACH. BED IN LOWEST POSITION. SR UP X 3 WITH BED ALARM ON FOR SAFETY. WILL ENDORSE TO NEXT SHIFT.
--- NOTE | 2019-08-27 07:10 | NUR ---
MS RN OPENING NOTES RECEIVED PT IN BED, ASLEEP, EASILY AROUSED, A/O X2. PT ON SUPPLEMENTARY OXYGEN AT 2LPM VIA NC, RESPIRATIONS EVEN AND UNLABORED. NO S/S OF ANY ACUTE DISTRESS NOTED. PT DENIES ANY PAIN OR DISCOMFORT AT THIS TIME. AYANNA PICC LINE IN PLACE, FLUSHED WITH NS, INTACT AND OPERATIONAL. PT KEPT COMFORTABLE IN BED. BED IN LOWEST LOCKED POSITION, BED ALARM ON, SIDE RAILS UP, CALL LIGHT WITHIN REACH. WILL CONTINUE TO MONITOR.
[2019-08-27 08:00] VITALS: BP 138/108
[2019-08-27] MEDS: hydrALAZINE HCL 50 MG TABLET PO SCH ×3 (09:10→16:57)
[2019-08-27] MEDS: PANTOPRAZOLE 40 MG TABLET.DR PO SCH (09:10)
[2019-08-27] MEDS: VALSARTAN 80 MG TABLET PO SCH (09:10)
[2019-08-27 09:11] LABS: BASOPHILS # (AUTO) 0.1 /CMM (0.0-0.2); BASOPHILS % (AUTO) 0.6 % (0.0-2.0); EOSINOPHILS % (AUTO) 1.6 % (0.0-6.0); HEMATOCRIT 27 % (33-45); HEMOGLOBIN 8.9 g/dL (11.5-14.8); LYMPHOCYTES # (AUTO) 1.4 /CMM (0.8-4.8); MEAN CORPUSCULAR HGB CONC 32 g/dl (31.0-36.0); MEAN CORPUSCULAR VOLUME 90 fL (82-100); MONOCYTES # (AUTO) 1.1 /CMM (0.1-1.30); MONOCYTES % (AUTO) 10.7 % (2.0-12.0); NEUTROPHILS # (AUTO) 7.4 /CMM (1.8-8.9); NEUTROPHILS % (AUTO) 73.1 % (43.0-81.0); PLATELET COUNT (AUTO) 489 /CMM (150-450); RED BLOOD CELL COUNT(AUTO) 3.03 MIL/uL (4.0-5.2); WHITE BLOOD COUNT (AUTO) 10.1 K/uL (4.3-11.0)
[2019-08-27] MEDS: METOPROLOL SUCCINATE 25 MG TAB.SR.24H PO SCH (09:11)
[2019-08-27] MEDS: AMLODIPINE BESYLATE 5 MG TABLET PO SCH (09:11)
[2019-08-27] MEDS: APIXABAN 2.5 MG TABLET PO SCH ×2 (09:14→16:58)
[2019-08-27] MEDS: CLOPIDOGREL BISULFATE 75 MG TABLET PO SCH (09:14)
[2019-08-27] MEDS: THERAHONEY GEL 1.5 OZ TUBE TP SCH (09:16)
[2019-08-27] MEDS: HYDROGEL DRESSING 90 GM TUBE TP SCH (09:16)
[2019-08-27] MEDS: NYSTATIN TOP POWDER 15 GM BOTTLE TP SCH ×2 (09:17→17:13)
[2019-08-27] MEDS: ENSURE ENLIVE 237 ML LIQUID (VANILLA) PO SCH ×2 (09:19→17:12)
[2019-08-27 09:51] LABS: CALCIUM, SERUM 8.2 mg/dL (8.5-10.1); CARBON DIOXIDE 21 mmol/L (21-32); CHLORIDE 103 mmol/L (98-107); CREATININE 1.7 mg/dL (0.6-1.3); GLUCOSE 103 mg/dL (74-106); MAGNESIUM 2.4 mg/dL (1.8-2.4); PHOSPHORUS 3.3 mg/dL (2.5-4.9); POTASSIUM 3.5 mmol/L (3.5-5.1); SODIUM SERUM 136 mmol/L (136-145); UREA NITROGEN, BLOOD 48 mg/dL (7-18)
[2019-08-27] MEDS: NITROGLYCERIN 30 GM TUBE TP SCH ×2 (09:53→20:52)
[2019-08-27 16:00] VITALS: BP 128/81
--- NOTE | 2019-08-27 17:50 | NUR ---
PT COLOSTOMY DRAINING FOUL LIQUIDY BLOOD, CM LÓPEZ MADE AWARE. PER MARIBEL, PT IS GOING TO DC ON HOSPICE AND FAMILY DOES NOT WANT TO BE AGGRESSIVE WITH SCOPING
--- NOTE | 2019-08-27 18:00 | NUR ---
PT GRIMACING AND MOANING. PT ASSESSMENT DONE AND TYLENOL 650MG PO PRN ADMINISTERED FOR PAIN BETWEEN 1-3.
[2019-08-27] MEDS: ACETAMINOPHEN 650 MG/20.3 ML UDC PO PRN (18:31)
--- NOTE | 2019-08-27 19:10 | NUR ---
MS RN CLOSING NOTES PT IN BED, AWAKE AT THIS TIME. PT ON SUPPLEMENTARY OXYGEN AT 2LPM VIA NC. PT REMAINED STABLE THOUGH OUT SHIFT. RESPIRATIONS EVEN AND UNLABORED. NO S/S OF ANY ACUTE DISTRESS NOTED. AYANNA PICC LINE IN PLACE, FLUSHED WITH NS, INTACT AND OPERATIONAL. PT KEPT CLEAN AND DRY. ALL NEEDS ATTENDED TO ANTICIPATED. DUEÑAS CATHETER IN PLACE DRAINING TO GRAVITY, CLEAR YELLOW URINE OUTPUT. COLOSTOMY CARE PROVIDED AND BAG CHANGED. PT KEPT COMFORTABLE IN BED. SAFETY PRECAUTIONS IN PLACE. BED IN LOWEST LOCKED POSITION, BED ALARM ON, SIDE RAILS UP, CALL LIGHT WITHIN REACH. WILL ENDORSE TO NIGHT NURSE FOR EMMA.
--- NOTE | 2019-08-27 19:55 | NUR ---
RN OPENING NOTES RECEIVED REPORT FROM DAYSHIFT RN IMMACULATE. FOUND Pt AWAKE, RESTING IN BED. NO S/S OF ACUTE DISTRESS OR SOB NOTED. Pt IS A/OX1, CONFUSED WITH BASELINE DEMENTIA, BUT IS VERBAL, [place]ER SPEAKING ONLY. COLOSTOMY BAG IN PLACE ON LLQ, NO LEAKING NOTED. DUEÑAS CATHETER IN PLACE, DRAINING WELL. IV ACCESS ON AYANNA PICCLINE @ TKO. SAFETY MEASURES IN PLACE. BED LOW, LOCKED, HOB ELEVATED, SIDE RAILS UP, CALL LIGHT AND BEDSIDE TABLE WITHIN REACH. WILL CONTINUE TO MONITOR Pt's CONDITION AND SAFETY THROUGHOUT THE NIGHT.
[2019-08-27 20:00] VITALS: BP 145/50
[2019-08-27 20:30] VITALS: BP 145/50
[2019-08-27] MEDS ORDERED: VANCOMYCIN 0.75 GM in IV D5W 250 ML IV SCH (22:00)
[2019-08-27] MEDS: DONEPEZIL 5 MG TABLET PO SCH (22:44)
[2019-08-28] MEDS: CEFEPIME 2 GM in IV D5W 100 ML IV SCH ×2 (05:12→17:51)
--- NOTE | 2019-08-28 06:48 | NUR ---
RN CLOSING NOTES NO SIGNIFICANT CHANGES IN Pt's CONDITION. Pt IS RESTING COMFORTABLY IN BED. NO S/S OF ACUTE DISTRESS OR SOB NOTED DURING THE NIGHT. ALL NEEDS MET AND ATTENDED TO. DUEÑAS CATHETER OUTPUT: 250CC & COLOSTOLY OUTPUT: 20CC. SAFETY MEASURES IN PLACE. WILL ENDORSE TO DAYSHIFT RN FOR Pt's EMMA.
--- NOTE | 2019-08-28 07:12 | NUR ---
MS RN OPENING NOTES RECEIVED PT IN BED AWAKE AT THIS TIME. AO X1. . PT ON SUPPLEMENTARY OXYGEN AT 2LPM VIA NC, RESPIRATIONS EVEN AND UNLABORED. NO S/S OF ANY ACUTE DISTRESS NOTED. PT DENIES ANY PAIN OR DISCOMFORT AT THIS TIME. AYANNA PICC LINE IN PLACE, FLUSHED WITH NS, INTACT AND OPERATIONAL. COLOSTOMY BAG IN PLACE ON LLQ, NO LEAKING NOTED. DUEÑAS CATHETER IN PLACE, DRAINING WELL TO GRAVITY CLEAR YELLOW URINE OUTPUT. ASPIRATIONS AND SAFETY PRECAUTIONS IN PLACE. BED LOW, LOCKED, HOB ELEVATED, BED IN LOWEST LOCKED POSITION, BED ALARM ON, SIDE RAILS UP, CALL LIGHT WITHIN REACH. WILL CONTINUE TO MONITOR.
[2019-08-28 08:00] VITALS: BP 131/57
[2019-08-28] MEDS: hydrALAZINE HCL 50 MG TABLET PO SCH ×3 (09:30→17:55)
[2019-08-28] MEDS: AMLODIPINE BESYLATE 5 MG TABLET PO SCH (09:31)
[2019-08-28] MEDS: METOPROLOL SUCCINATE 25 MG TAB.SR.24H PO SCH (09:31)
[2019-08-28] MEDS: APIXABAN 2.5 MG TABLET PO SCH ×2 (09:32→17:56)
[2019-08-28] MEDS: CLOPIDOGREL BISULFATE 75 MG TABLET PO SCH (09:33)
[2019-08-28] MEDS: ENSURE ENLIVE 237 ML LIQUID (VANILLA) PO SCH ×2 (09:33→17:51)
[2019-08-28] MEDS: PANTOPRAZOLE 40 MG TABLET.DR PO SCH (09:33)
[2019-08-28] MEDS: THERAHONEY GEL 1.5 OZ TUBE TP SCH (09:34)
[2019-08-28] MEDS: NYSTATIN TOP POWDER 15 GM BOTTLE TP SCH ×2 (09:34→17:57)
[2019-08-28] MEDS: NITROGLYCERIN 30 GM TUBE TP SCH (09:35)
[2019-08-28] MEDS: HYDROGEL DRESSING 90 GM TUBE TP SCH (09:36)
[2019-08-28 16:00] VITALS: BP 141/63
[2019-08-28 17:55] VITALS: BP 141/63
--- NOTE | 2019-08-28 20:30 | NUR ---
RN rae D/C notes [facility] ambulance ([place] and [place]) came to picked up Pt. Pt is going home. Per am nurse, am nurse spoke with Pt's daughter Shaylee about D/C planning. Pt is alert and orientedX1. VS is stable. D/C paperwork is signed by two nurses. Pt's belonging's was checked by morning nurse and signed by two nurses. Per charge nurse spoke with admDaljit Godinez to keep Pt's PICC line. Leon cath is intact and patent. Pt is transported by a stretcher. D/C paperwork is given to [facility] EMt personnel. Kept Pt clean, dry and comfortable. All needs met and attended.
--- NOTE | 2019-08-28 20:40 | NUR ---
MS CHIEF SALES OFFICER NOTES PT DISCHARGE TO HOME. DAUGHTER JESUS MADE AWARE. PT IN STABLE CONDITION AT THIS TIME. V/S ARE STABLE. ALL CARE AND MEDICATIONS ADMINISTERED PER ORDER. WOUND CARE TREATMENT DONE PER ORDER. AYANNA PICC LINE IN PLACE AND FLUSHING WELL. PT KEPT CLEAN AND DRY. ALL NEEDS PROVIDED ANTICIPATED PER ORDER. PT REPOSITIONED Q2HRS, PRN AND PER PROTOCOL. COLOSTOMY IN PLACE. PT HAD NO BELONGINGS. PICTURES TAKEN, DOCUMENTED AND FILED IN CHART. DUEÑAS CATHETER IN PLACE AND DRAINING WELL. PT UNABLE TO SIGN DISCHARGE PAPERS. DISCHARGED PAPERS SIGNED BY TWO NURSES. PT PICKED UP BY [facility] ON A STRETCHER.
== END 2019-08-28 20:25 | disposition hospice, home (50) | DRG 981 ==
LOC: ER 15:04 → TELE 20:51 → MED 08-23 08:43
PROVIDERS: ADMIT Nurse Practitioner Acute Care; ATTEND Registered Nurse
PROC: 0KBP0ZZ Excision of Left Hip Muscle, Open Approach (ICD-10-PCS; principal; 2019-08-20)
PROC: 0KBN0ZZ Excision of Right Hip Muscle, Open Approach (ICD-10-PCS; 2019-08-20)
PROC: 02HV33Z Insertion of Infusion Device into Superior Vena Cava, Percutaneous Approach (ICD-10-PCS; 2019-08-21)
PROC: B548ZZA Ultrasonography of Superior Vena Cava, Guidance (ICD-10-PCS; 2019-08-21)
DX: J96.01 Acute respiratory failure with hypoxia (principal); J15.9 Unspecified bacterial pneumonia; N17.0 Acute kidney failure with tubular necrosis; I21.4 Non-ST elevation (NSTEMI) myocardial infarction; L89.154 Pressure ulcer of sacral region, stage 4; G93.41 Metabolic encephalopathy; D68.59 Other primary thrombophilia; J98.11 Atelectasis; J90 Pleural effusion, not elsewhere classified; Z66 Do not resuscitate; E78.5 Hyperlipidemia, unspecified; E03.9 Hypothyroidism, unspecified; E11.9 Type 2 diabetes mellitus without complications; E78.00 Pure hypercholesterolemia, unspecified; F03.90 Unspecified dementia, unspecified severity, without behavioral disturbance, psychotic disturbance, mood disturbance, and anxiety; I25.10 Atherosclerotic heart disease of native coronary artery without angina pectoris; Z93.3 Colostomy status; Z90.49 Acquired absence of other specified parts of digestive tract; Z87.442 Personal history of urinary calculi; I25.2 Old myocardial infarction; I48.91 Unspecified atrial fibrillation; Z79.02 Long term (current) use of antithrombotics/antiplatelets; K59.00 Constipation, unspecified; Z79.01 Long term (current) use of anticoagulants; M19.90 Unspecified osteoarthritis, unspecified site; Z79.899 Other long term (current) drug therapy; Y95 Nosocomial condition; F32.9 Major depressive disorder, single episode, unspecified; F41.9 Anxiety disorder, unspecified; K21.9 Gastro-esophageal reflux disease without esophagitis; I70.0 Atherosclerosis of aorta; D72.829 Elevated white blood cell count, unspecified; Z95.0 Presence of cardiac pacemaker; Z87.19 Personal history of other diseases of the digestive system; N20.0 Calculus of kidney; D47.3 Essential (hemorrhagic) thrombocythemia; Z95.820 Peripheral vascular angioplasty status with implants and grafts; L30.4 Erythema intertrigo; T50.2X5A Adverse effect of carbonic-anhydrase inhibitors, benzothiadiazides and other diuretics, initial encounter; T46.5X5A Adverse effect of other antihypertensive drugs, initial encounter; Y92.9 Unspecified place or not applicable; I11.0 Hypertensive heart disease with heart failure; E61.1 Iron deficiency; L89.150 Pressure ulcer of sacral region, unstageable; I50.9 Heart failure, unspecified
CPT/HCPCS: 36415; 36600; 71045-TC; 80048-TC; 80053-TC; 80061-TC; 80076-TC; 80202-TC; 81000-TC; 82272-TC; 82728-TC; 83540-TC; 83605-TC; 83615-TC; 83735-TC; 84100-TC; 84439-TC; 84443-TC; 84484-TC; 85025-TC; 85045-TC; 85378-TC; 85730-TC; 86140-TC; 86850-TC; 87040-TC; 87081-TC; 87086-TC; A6248; A6253; A6403; C1751; G0378; J0360; J0692; J1940; J2185; J2916; J3370; J3475; J3480; J3490; J7030; J7040; J7050; J7060